=== PATIENT | male | born 1955 | race African-American/Black ===

== ENCOUNTER 2017-02-14 10:24 | Emergency (ER) | payer OTHER ==
[2017-02-14 10:38] VITALS: BMI 28.1
--- NOTE | 2017-02-14 10:41 | PDOC ---
History of Present Illness - General Chief Complaint: Blood Pressure Problem Stated Complaint: HIGH BLOOD PRESSURE Time Seen by Provider: 02/14/17 10:39 - History of Present Illness Initial Comments: 02/14/17 11:27 The pt is a 61 year old male with a PMH of TIA 2 weeks ago, CAD s/p stents, s/p left carotid artery stent, HTN who presented to ED today brought by EMS. Today he took Amlodipine but because he had dizziness and headache he checked his BP and it was elevated to around 190/100. He states that his headache resolved now. The pt is complaining of left arm weakness that is present since his stroke 2 weeks ago. His BP medications has been changed recently but he doesn't remember the names.He denies chest pain, SOB, palpitations. He denies dysuria, increased frequency. He denies fever, chills. PCP: Dr.Shivdasani Sierra Past History - Past Medical History Allergies/Adverse Reactions: Allergies Allergy/AdvReac Type Severity Reaction Status Date / Time JESSI Inhibitors Allergy Swelling Verified 02/14/17 10:34 Home Medications: Ambulatory Orders Amlodipine Besylate [Norvasc -] 10 mg PO DAILY 02/14/17 Aspirin [ASA -] 81 mg PO DAILY 02/14/17 Metformin HCl [Glucophage -] 850 mg PO DAILY 02/14/17 Metoprolol Succinate [Toprol Xl] 100 mg PO DAILY 02/14/17 Cardiac Disorders: Yes ([place]) Diabetes: Yes HTN: Yes - Surgical History Cardiac Surgery: Yes (carotid & cardiac stent) - Psycho/Social/Smoking Cessation Hx Anxiety: No Suicidal Ideation: No Smoking History: Never smoked Have you smoked in the past 12 months: No Information on smoking cessation initiated: No Hx Alcohol Use: No Drug/Substance Use Hx: No Substance Use Type: None Review of Systems - Review of Systems Able to Perform ROS?: Yes Comments:: 02/14/17 11:46 REVIEW OF SYSTEMS CONSTITUTIONAL: Absent: fever, chills, diaphoresis, generalized weakness HEENT: Absent: rhinorrhea, nasal congestion, throat pain, throat swelling, difficulty swallowing, CARDIOVASCULAR: Absent: chest pain, syncope, palpitations, irregular heart rate, lightheadedness , peripheral edema RESPIRATORY: Absent: cough, shortness of breath, dyspnea with exertion, orthopnea, wheezing, stridor, hemoptysis GASTROINTESTINAL: Absent: abdominal pain, abdominal distension, nausea, vomiting, diarrhea, constipation GENITOURINARY: Absent: dysuria, frequency, urgency, hesitancy, hematuria, flank pain, genital pain MUSCULOSKELETAL: Absent: myalgia, arthralgia, joint swelling, back pain, neck pain SKIN: Absent: rash, itching, pallor NEUROLOGIC: weakness in right upper extremity Absent: headache, focal weakness or paresthesias, unsteady gait, seizure, mental status changes PSYCHIATRIC: Absent: anxiety, depression, suicidal or homicidal ideation, hallucinations. Is the patient limited Belgian proficient: No *Physical Exam - Vital Signs Last Vital Signs Temp Pulse Resp BP Pulse Ox 98.3 F 122 H 20 194/96 99 02/14/17 10:35 02/14/17 10:35 02/14/17 10:35 02/14/17 10:35 02/14/17 10:35 - Physical Exam Comments: 02/14/17 11:47 GENERAL: The patient is awake, alert, and fully oriented, in no acute distress. HEAD: Normal with no signs of trauma. EYES: PERRL, extraocular movements intact, sclera anicteric, conjunctiva clear. No ptosis. ENT: Ears normal, nares patent, oropharynx clear without exudates, moist mucous membranes. NECK: Trachea midline, full range of motion, supple. LUNGS: Breath sounds equal, clear to auscultation bilaterally, no wheezes, no crackles, no accessory muscle use. HEART: Regular rate and rhythm, S1, S2 without murmur, rub or gallop. ABDOMEN: Soft, nontender, nondistended, normoactive bowel sounds, no guarding, no rebound, no hepatosplenomegaly, no masses. EXTREMITIES: 2+ pulses, warm, well-perfused, no edema. NEUROLOGICAL: Normal speech, no facial asymmetry, gait not observed. PSYCH: Normal mood, normal affect. SKIN: Warm, dry, normal turgor Heart Score/ECG Review - Electrocardiogram EKG: Normal - Age Age: 45-65 - Risk Factors Risk Factors Heart Score: Yes Hx Hypertension ED Treatment Course - LABORATORY CBC & Chemistry Diagram: 02/14/17 11:00 02/14/17 11:00 Medical Decision Making - Medical Decision Making 02/14/17 11:50 The pt is a asymptomatic 61 year old with elevated BP. We ordered CXR, head CT, CMP, CK index, troponin, CMP, INR/PT, awaiting results. 02/14/17 13:06 CT head shows changes that are consisted with previous changes on CT in [place] recently. We called his PCP and discussed. The BP improved without administering any medications in ED. systolic was 194, HR 124, now BP 149/86 and HR 94. He remains asymptomatic, denies headache, numbness, paresthesia, vision problems. His laboratory results are nl, CXR no acute pathology. We discussed the plan for discharge. The pt agreed to f/u with PCP and continue taking his home medications, monitor BP. *DC/Admit/Observation/Transfer Diagnosis at time of Disposition: Hypertension - Discharge Dispostion Disposition: HOME Condition at time of disposition: Good Admit: No - Referrals Referrals: Rigo Carroll [Primary Care Provider] - 3 days - Patient Instructions Printed Discharge Instructions: How to Monitor Your Blood Pressure at Home Additional Instructions: Please visit your PCP on Saturday. Take your medications everyday and monitor BP. If your symptoms worsen come back to ED as soon as possible.
[2017-02-14] MEDS ORDERED: SODIUM CHLORIDE 500 ML IV STA (10:54)
--- NOTE | 2017-02-14 11:13 | PDOC ---
Attending Attestation - Resident Resident Name: Nancy Bowers - ED Attending Attestation I have performed the following: I have examined & evaluated the patient, The case was reviewed & discussed with the resident, I agree w/resident's findings & plan - HPI HPI: 02/14/17 10:59 61y M hx of htn, DM, cad s/p stents, recent dx of TIA, presents with htn. The pt states he was recently in [facility] with dx of stroke, was dc about a week ago , but seems to have been having trouble managing his BP. Pt states that he had a mild headache yesterday, that improved after he took an amlodipine, then had a headache around 3am fani twas 7/10, but now is currently 0/10. There was no associated numbness/tingling/weakness, n/v, cp, sob, palpitations, vision changes, neck pain, back pain. pts BP was originally 192 sbp - repeta was 150s pt is noted to be tchycardic to 120s exam as documented by resident will ck labs will ck ct head will also reach out to his PMD 02/14/17 11:35 02/14/17 12:[address] Harris at [facility] The patient was admitted to [facility] for acute cva on 01/18, then had repeat imaging on 02/11 - 01/18 - admitted for AMS - MRI L frontal parietal acute infarct - 02/11 - CT head, no acute changes, comparable to findings from MRI the region of changes on our CT head is consistent with location of infarct from 1 month ago - pt currently asypmtmatic and vitals are normalized (bp 140/106), HR 86. Pts labs unremarkable. discussed with dr. Ham (PMD) - agrees that the CT likely reflects changes form prior stroke. As pt is asymtpmatic and BP is controlled can dc the pt to fu with PMD. pt agrees with the plan return precautions were discussed I discussed the physical exam findings, ancillary test results and final diagnoses with the patient. I answered all of the patient's questions. The patient was satisfied with the care received and felt comfortable with the discharge plan and treatment plan. The patient will call their primary care physician within 24 hours to arrange follow-up and will return to the Emergency Department with any new, persistent or worsening symptoms. - Physicial Exam PE: 02/15/17 08:26 see above - Medical Decision Making 02/15/17 08:26 see above
[2017-02-14 11:17] LABS: BASOPHIL 0.3 % (0-2.0); MEAN CELL VOLUME 78.7 fl (80-96); MEAN PLT VOLUME 8.5 fl (7.5-11.1); NEUTROPHILS 61.3 % (42.8-82.8); PLATELET COUNT 230 K/MM3 (134-434); RDW 14.4 % (11.9-15.9); WHITE BLOOD COUNT 6.7 K/mm3 (4.0-10.0)
[2017-02-14 11:28] LABS: ALBUMIN 4.4 g/dl (3.4-5.0); ALK PHOS 125 U/L (45-117); ANION GAP 9 (8-16); BILIRUBIN,TOTAL 0.5 mg/dL (0.2-1.0); CALCIUM 9.4 mg/dL (8.5-10.1); CO2 29 mmol/L (21-32); CREATININE 0.9 mg/dL (0.7-1.3); GLUCOSE,RANDOM 208 mg/dL (74-106); SGPT/ALT 29 U/L (12-78); TOT PROT 8.6 g/dl (6.4-8.2)
[2017-02-14 11:31] LABS: INR 1.01 (0.82-1.09); PROTHROMBIN TIME (PATIENT) 11.1 SEC (9.98-11.88)
--- NOTE | 2017-02-14 11:34 | EKG ---
Test Reason : Blood Pressure : / mmHG Vent. Rate : 114 BPM Atrial Rate : 114 BPM P-R Int : 148 ms QRS Dur : 084 ms QT Int : 324 ms P-R-T Axes : 037 010 -02 degrees QTc Int : 446 ms SINUS TACHYCARDIA POSSIBLE LEFT ATRIAL ENLARGEMENT LEFT VENTRICULAR HYPERTROPHY INFERIOR INFARCT , AGE UNDETERMINED ABNORMAL ECG NO PREVIOUS ECGS AVAILABLE Confirmed by YANG ABBOTT MD ([id number]) on 02/14/2017 11:34:32 AM Referred By: Confirmed By:YANG ABBOTT MD
[2017-02-14 11:36] LABS: THYROID STIMULATING HORMONE 2.54 uIU/ml (0.358-3.74); TROPONIN I < 0.02 ng/ml (0.00-0.05)
[2017-02-14 11:40] LABS: MAGNESIUM 2.1 mg/dL (1.8-2.4)
[2017-02-14 11:41] LABS: SGOT/AST 19 U/L (15-37)
[2017-02-14 13:33] VITALS: BP 149/86; PULSE 91; TEMP 98
== END 2017-02-14 14:25 | disposition home or self-care (01) ==
LOC: JER 10:24
PROC: 3E0337Z Introduction of Electrolytic and Water Balance Substance into Peripheral Vein, Percutaneous Approach (ICD-10-PCS; principal; 2017-02-14)
DX: I10 Essential (primary) hypertension (principal); I25.10 Atherosclerotic heart disease of native coronary artery without angina pectoris; Z95.5 Presence of coronary angioplasty implant and graft; I69.854 Hemiplegia and hemiparesis following other cerebrovascular disease affecting left non-dominant side; E11.9 Type 2 diabetes mellitus without complications; Z79.84 Long term (current) use of oral hypoglycemic drugs
CPT/HCPCS: 36415; 70450-TC; 71010-TC; 80053; 82550; 82553; 83735; 84443; 84484; 85025; 85610; 86850; 86900; 86901; 93005; 93010; 99283-25

== ENCOUNTER 2017-02-16 08:28 | Emergency (ER) | payer OTHER ==
[2017-02-16 08:40] VITALS: TEMP 98.5; BMI 27.3
[2017-02-16] MEDS ORDERED: METOPROLOL SUCCINATE 100 MG TAB.SR.24H (FP) PO ONE (08:50)
[2017-02-16] MEDS ORDERED: METOPROLOL SUCCINATE 50 MG TAB.SR.24H (FP) ONE (09:00)
--- NOTE | 2017-02-16 09:02 | PDOC ---
History of Present Illness - General Chief Complaint: CVA/TIA Stated Complaint: HEAD PAIN Time Seen by Provider: 02/16/17 08:49 History Source: Patient Exam Limitations: No Limitations - History of Present Illness Initial Comments: CHIEF COMPLAINT: 61 y/o afebrile male with PMH HTN, DM, CAD s/p stents (on Effient blood thinner), recent dx of TIA, recent dx of carotid artery stenosis c /o HTN at home and left facial throbbing. HISTORY OF PRESENT ILLNESS: The patient states he woke up around 6am and noticed he had a throbbing pain in the left side of his face. He states he took his amlodipine at 6:30am, which is when he normally takes it. He states the throbbing has subsided. He denies f/c, changes in vision/hearing, n/v/d, facial drooping, slurred speech, Cp, SOB, abd pain, palpitations, fall, LOC. He normally takes his metoprolol around 9:30am and hasn't taken it yet. He states he only has slight residual numbness in his right hand from his TIA a few weeks ago. Vital signs on arrival are notable for pulse of 102 and BP of 183/86. REVIEW OF SYSTEMS: GENERAL/CONSTITUTIONAL: No fever/chills. No weakness. No weight change. HEAD, EYES, EARS, NOSE AND THROAT: No change in vision. No ear pain or discharge. No sore throat. Left sided facial throbbing (resolved) CARDIOVASCULAR: No chest pain or shortness of breath. RESPIRATORY: No cough, wheezing, or hemoptysis. GASTROINTESTINAL: No abd pain, nausea, vomiting, diarrhea. GENITOURINARY: No dysuria, frequency, or change in urination. MUSCULOSKELETAL: No joint or muscle swelling or pain. No neck or back pain. SKIN: No rash or easy bruising. NEUROLOGIC: +headache (resolved) No vertigo, loss of consciousness, or loss of sensation. PHYSICAL EXAM: GENERAL: The patient is awake, alert, and fully oriented, in no acute distress. He is well appearing and speaks in full, clear sentences. HEAD: Normal with no signs of trauma. ENT: Pupils equal, round and reactive to light, extraocular movements intact, sclera anicteric, conjunctiva clear. Neck supple. LUNGS: Clear to auscultation bilaterally. Normal excursion. No respiratory distress or use of accessory muscles. CV: RRR, S1/S2, no MRG. Cap refill < 2 sec. ABDOMEN: Soft, non-distended, non-tender even to deep palpation, no hepatomegaly or splenomegaly, no masses. EXTREMITIES: Normal range of motion, no edema. NEUROLOGICAL: Normal speech. Gait not assessed in the ER. CN II-XII grossly intact. No facial drooping. No slurred speech. Motor and sensory equal and intact in b/l UEs and LEs. PSYCH: Normal mood, normal affect. SKIN: Warm, dry, normal turgor, no rashes or lesions noted. NIH Stroke Scale - Last Known Well Date/Time & Onset Date Last Known Well: 02/16/17 Time Last Known Well: 06:30 - Initial Evaluation Level of consciousness: Alert Ask patient the month and their age: Answers both correctly Ask patient to open & close eyes; make fist and let go: Obeys both correctly Best gaze (horizontal eye movement): Normal Visual field testing: No visual field loss Facial paresis (Show teeth/raise eyebrows/close eyes tight): Normal symmetrical movement Motor Function: Left Arm: Normal Motor Function: Right Arm: Normal (extends arm 90 (or 45) degrees for 10 seconds without drift Motor Function: Left Leg: Normal (extends leg 30 degrees for 5 seconds without drift) Motor Function: Right Leg: Normal (extends leg 30 degrees for 5 seconds without drift) Limb Ataxia: No ataxia Sensory(Use pinprick test arms,legs,trunk,face/side to side): Normal Best language (Describe picture, name items, read sentences): No Aphasia Dysarthria (read several words): Normal articulation Extinction and Inattention: No abnormality - Total Score NIH Stroke Scale Score: 0 Past History - Past Medical History Allergies/Adverse Reactions: Allergies Allergy/AdvReac Type Severity Reaction Status Date / Time JESSI Inhibitors Allergy Swelling Verified 02/16/17 08:40 Home Medications: Ambulatory Orders Amlodipine Besylate [Norvasc -] 10 mg PO DAILY 02/14/17 Aspirin [ASA -] 81 mg PO DAILY 02/14/17 Metformin HCl [Glucophage -] 850 mg PO DAILY 02/14/17 Metoprolol Succinate [Toprol Xl] 100 mg PO DAILY 02/14/17 Exenatide Microspheres [Bydureon] 0 mg SQ Q7D 02/16/17 Irbesartan/Hydrochlorothiazide [Irbesartan-Hctz 300-12.5 mg Tb] 1 each PO DAILY 02/16/17 Omeprazole Magnesium [Prilosec] 10 mg PO DAILY 02/16/17 Prasugrel HCl [Effient] 10 mg PO DAILY 02/16/17 Cardiac Disorders: Yes ([place]) CVA: Yes Diabetes: Yes HTN: Yes - Surgical History Cardiac Surgery: Yes (carotid & cardiac stent) - Psycho/Social/Smoking Cessation Hx Anxiety: No Suicidal Ideation: No Smoking History: Never smoked Have you smoked in the past 12 months: No Information on smoking cessation initiated: No Hx Alcohol Use: No Drug/Substance Use Hx: No Substance Use Type: None *Physical Exam - Vital Signs Last Vital Signs Temp Pulse Resp BP Pulse Ox 98.5 F 102 H 18 183/86 97 02/16/17 08:38 02/16/17 08:38 02/16/17 08:38 02/16/17 08:38 02/16/17 08:38 Heart Score/ECG Review - ECG Intrepretation Comment:: Twelve-lead EKG was performed and reviewed by Dr. Mora. There is normal sinus rhythm with a normal rate. The axis is normal. The intervals are normal. Inferior infarct, age undetermined Impression: Abnormal twelve-lead EKG ED Treatment Course - LABORATORY CBC & Chemistry Diagram: 02/16/17 08:58 02/16/17 08:58 Medical Decision Making - Medical Decision Making A/P: 61 y/o male s/p recent diagnosis of TIA c/o left sided facial throbbing, headache and high BP at home this morning. The patient states his facial throbbing and headache have resolved. Plan is as follows: 1. Labs 2. EKG 3. Head CT 4. PO metoprolol The patient was admitted to [facility] for acute CVA on 01/18. 01/18 - MRI showed L frontal parietal acute infarct The patient had repeat imaging on 02/11 with no acute changes. The patient had repeat imaging on 02/14 here with no acute changes. PMD is DR. Ham Head CT IMPRESSION: No significant change since 02/14/17. Labs unremarkable. The patient states he does not feel comfortable going home given his medical problems and continued symptoms. Spoke with the patient's PCP, Dr. Ham and he does agree there is no reason for admission, as the patient's blood pressure is now normal. The licensed clinical social worker is now speaking with the patient. Leann spoke with the patient and his and provided some reassurance. He has follow up appointments this week with Cardiology and Neurology. I instructed him to continue taking his medications as prescribed, call his PCP anytime he is concerned and return to the ER with any worsening or concerning symptoms. The patient verbalizes understanding of all instructions, has no further questions and is awaiting discharge. *DC/Admit/Observation/Transfer Diagnosis at time of Disposition: Hypertension Qualifiers: Hypertension type: unspecified secondary hypertension Qualified Code(s): I15.9 - Secondary hypertension, unspecified; I15 - Secondary hypertension - Discharge Dispostion Disposition: HOME Condition at time of disposition: Improved - Patient Instructions Printed Discharge Instructions: DI for High Blood Pressure Additional Instructions: Discharge Instructions: -Please keep your upcoming Neurology and Cardiology appointments as scheduled -Take your medications as prescribed -Call your PCP anytime you have a question or concern -Return to the ER with any worsening or concerning symptoms
[2017-02-16 09:26] LABS: BASOPHIL 0.1 % (0-2.0); EOSINOPHIL 0.5 % (0-4.5); MCHC 33.3 g/dl (32.0-35.9); MEAN CELL VOLUME 78.3 fl (80-96); MEAN PLT VOLUME 8.1 fl (7.5-11.1); NEUTROPHILS 75.9 % (42.8-82.8); PLATELET COUNT 215 K/MM3 (134-434); RDW 14.6 % (11.9-15.9); WHITE BLOOD COUNT 8.4 K/mm3 (4.0-10.0)
[2017-02-16 09:51] LABS: ALBUMIN 4.1 g/dl (3.4-5.0); ANION GAP 8 (8-16); CALCIUM 9.4 mg/dL (8.5-10.1); CO2 29 mmol/L (21-32); GLUCOSE,RANDOM 164 mg/dL (74-106); SGOT/AST 9 U/L (15-37); SGPT/ALT 24 U/L (12-78)
[2017-02-16 09:54] LABS: ALK PHOS 116 U/L (45-117); BILIRUBIN,TOTAL 0.7 mg/dL (0.2-1.0); TOT PROT 7.9 g/dl (6.4-8.2); TROPONIN I < 0.02 ng/ml (0.00-0.05)
[2017-02-16 11:16] VITALS: BP 143/76; PULSE 80
--- NOTE | 2017-02-17 11:28 | EKG ---
Test Reason : Blood Pressure : / mmHG Vent. Rate : 097 BPM Atrial Rate : 097 BPM P-R Int : 162 ms QRS Dur : 088 ms QT Int : 346 ms P-R-T Axes : 054 012 019 degrees QTc Int : 439 ms NORMAL SINUS RHYTHM POSSIBLE LEFT ATRIAL ENLARGEMENT INFERIOR INFARCT (CITED ON OR BEFORE 14-FEB-2017) ABNORMAL ECG WHEN COMPARED WITH ECG OF 14-FEB-2017 10:36, NO SIGNIFICANT CHANGE WAS FOUND Confirmed by DAVID HERNANDES MD ([id number]) on 02/17/2017 11:28:38 AM Referred By: Confirmed By:DAVID HERNANDES MD
== END 2017-02-16 12:05 | disposition home or self-care (01) ==
LOC: JER 08:28
DX: I10 Essential (primary) hypertension (principal); I25.2 Old myocardial infarction; E11.9 Type 2 diabetes mellitus without complications; Z79.84 Long term (current) use of oral hypoglycemic drugs; Z86.73 Personal history of transient ischemic attack (TIA), and cerebral infarction without residual deficits; Z79.01 Long term (current) use of anticoagulants
CPT/HCPCS: 36415; 70450-TC; 80053; 82550; 82553; 84484; 85025; 93005; 93010; 99283-25

== ENCOUNTER 2017-02-24 10:08 | Emergency (ER) | payer OTHER ==
[2017-02-24 10:20] VITALS: BMI 29.7
[2017-02-24] MEDS ORDERED: SODIUM CHLORIDE 1,000 ML IV STA (10:23)
--- NOTE | 2017-02-24 10:25 | PDOC ---
History of Present Illness - General Chief Complaint: Blood Sugar Problem Stated Complaint: BLOOD SUGAR PROBLEM Time Seen by Provider: 02/24/17 10:22 Past History - Past Medical History Allergies/Adverse Reactions: Allergies Allergy/AdvReac Type Severity Reaction Status Date / Time JESSI Inhibitors Allergy Swelling Verified 02/24/17 10:19 Home Medications: Ambulatory Orders Amlodipine Besylate [Norvasc -] 10 mg PO DAILY 02/14/17 Aspirin [ASA -] 81 mg PO DAILY 02/14/17 Metformin HCl [Glucophage -] 850 mg PO DAILY 02/14/17 Metoprolol Succinate [Toprol Xl] 100 mg PO DAILY 02/14/17 Exenatide Microspheres [Bydureon] 0 mg SQ Q7D 02/16/17 Irbesartan/Hydrochlorothiazide [Irbesartan-Hctz 300-12.5 mg Tb] 1 each PO DAILY 02/16/17 Omeprazole Magnesium [Prilosec] 10 mg PO DAILY 02/16/17 Prasugrel HCl [Effient] 10 mg PO DAILY 02/16/17 Rosuvastatin [Crestor -] 0 mg PO DAILY 02/24/17 Cardiac Disorders: Yes ([place]) CVA: Yes Diabetes: Yes HTN: Yes - Surgical History Cardiac Surgery: Yes (carotid & cardiac stent) - Psycho/Social/Smoking Cessation Hx Anxiety: No Suicidal Ideation: No Smoking History: Never smoked Have you smoked in the past 12 months: No Information on smoking cessation initiated: No Hx Alcohol Use: No Drug/Substance Use Hx: No Substance Use Type: None *Physical Exam - Vital Signs Last Vital Signs Temp Pulse Resp BP Pulse Ox 98 F 103 H 18 184/91 99 02/24/17 10:18 02/24/17 10:18 02/24/17 10:18 02/24/17 10:18 02/24/17 10:18 *DC/Admit/Observation/Transfer - Attestations Physician Attestion: 02/24/17 10:25 I, Dr. Boaz Stacy, attest that this document has been prepared under my direction and personally reviewed by me in its entirety. I further attest, that it accurately reflects all work, treatment, procedures and medical decision -making performed by me.
--- NOTE | 2017-02-24 10:39 | PDOC ---
History of Present Illness - General Chief Complaint: Blood Sugar Problem Stated Complaint: BLOOD SUGAR PROBLEM Time Seen by Provider: 02/24/17 10:22 History Source: Patient - History of Present Illness Timing/Duration: other (this am) Associated Symptoms: denies: fever/chills, nausea/vomiting Past History - Past Medical History Allergies/Adverse Reactions: Allergies Allergy/AdvReac Type Severity Reaction Status Date / Time JESSI Inhibitors Allergy Swelling Verified 02/24/17 10:19 Home Medications: Ambulatory Orders Amlodipine Besylate [Norvasc -] 10 mg PO DAILY 02/14/17 Aspirin [ASA -] 81 mg PO DAILY 02/14/17 Metformin HCl [Glucophage -] 850 mg PO DAILY 02/14/17 Metoprolol Succinate [Toprol Xl] 100 mg PO DAILY 02/14/17 Exenatide Microspheres [Bydureon] 0 mg SQ Q7D 02/16/17 Irbesartan/Hydrochlorothiazide [Irbesartan-Hctz 300-12.5 mg Tb] 1 each PO DAILY 02/16/17 Omeprazole Magnesium [Prilosec] 10 mg PO DAILY 02/16/17 Prasugrel HCl [Effient] 10 mg PO DAILY 02/16/17 Rosuvastatin [Crestor -] 0 mg PO DAILY 02/24/17 Cardiac Disorders: Yes ([place]) CVA: Yes Diabetes: Yes HTN: Yes - Surgical History Cardiac Surgery: Yes (carotid & cardiac stent) - Psycho/Social/Smoking Cessation Hx Anxiety: No Suicidal Ideation: No Smoking History: Never smoked Have you smoked in the past 12 months: No Information on smoking cessation initiated: No Hx Alcohol Use: No Drug/Substance Use Hx: No Substance Use Type: None Review of Systems - Review of Systems Constitutional: No: Chills, Fever HEENTM: No: Blurred Vision, Difficulty Swallowing Respiratory: No: Shortness of Breath Cardiac (ROS): No: Chest Pain ABD/GI: No: Nausea, Vomiting Neurological: No: Headache, Dizziness *Physical Exam - Vital Signs Last Vital Signs Temp Pulse Resp BP Pulse Ox 98 F 103 H 18 184/91 99 02/24/17 10:18 02/24/17 10:18 02/24/17 10:18 02/24/17 10:18 02/24/17 10:18 - Physical Exam General Appearance: Yes: Appropriately Dressed. No: Apparent Distress HEENT: positive: Normal Voice Neck: positive: Supple Respiratory/Chest: negative: Respiratory Distress Cardiovascular: positive: Regular Rate, S1, S2 Gastrointestinal/Abdominal: positive: Soft. negative: Tender Extremity: positive: Normal Inspection Integumentary: positive: Dry, Warm Neurologic: positive: Fully Oriented, Alert, Normal Mood/Affect ED Treatment Course - LABORATORY CBC & Chemistry Diagram: 02/24/17 10:40 02/24/17 10:40 - RADIOLOGY Radiology Studies Ordered: Category Date Time Status CHEST PA & LAT [RAD] Stat Radiology 02/24/17 10:23 Ordered Medical Decision Making - Medical Decision Making 02/24/17 10:36 61 yo M, HTN, NIDDM, on weekly bydureon injections, CAD w/ 1 stent, TIA, s/p carotid endarderectomy, BIB EMS for hyperglycemia and elevated BP. Patient states he was in his usual state of health when he went to bed last night but woke up this a.m. "not feeling like myself" but denies any headache, dizziness , visual changes, focal weakness, chest pain, shortness of breath, abdominal pain, change in bowel movements, dysuria, nausea, vomiting, fever or chills. States he checked his sugar and it was over 300, usually in the 180s as per patient. Blood pressure also elevated en route. As per EMS. Patient reports that he is compliant with his medications. See exam Hyperglycemia FS 311 in ED -IVF -basic labs -reassess Hypertension Was 189/77 initially, improved to 148/77 without intervention Took am meds per pt Appears anxious in ED, takes xanax at needed at home -xanax -labs -reassess 02/24/17 12:19 Patient reports feeling better with fluids. Final fingerstick 329. Patient discharged in stable condition to return for worsening of symptoms. Otherwise, follow-up with his PMD *DC/Admit/Observation/Transfer Diagnosis at time of Disposition: Hyperglycemia Hypertension Qualifiers: Hypertension type: other secondary hypertension Qualified Code(s): I15.8 - Other secondary hypertension - Discharge Dispostion Condition at time of disposition: Improved - Patient Instructions Printed Discharge Instructions: DI for Hyperglycemia -- Adult Additional Instructions: Continue to take your medications as directed and follow up with your PMD. Return for worsening of symptoms
[2017-02-24 10:50] LABS: BASOPHIL 0.3 % (0-2.0); EOSINOPHIL 0.6 % (0-4.5); MCH 26.2 pg (25.7-33.7); MCHC 33.7 g/dl (32.0-35.9); MEAN PLT VOLUME 8.5 fl (7.5-11.1); NEUTROPHILS 58.2 % (42.8-82.8); PLATELET COUNT 187 K/MM3 (134-434); RDW 14.6 % (11.9-15.9); WHITE BLOOD COUNT 5.4 K/mm3 (4.0-10.0)
[2017-02-24] MEDS ORDERED: ALPRAZolam 0.25 MG TABLET PO ONE (10:56)
[2017-02-24] MEDS ORDERED: ALPRAZolam 0.25 MG TABLET ONE (10:58)
[2017-02-24 11:15] LABS: ALK PHOS 107 U/L (45-117); ANION GAP 8 (8-16); BILIRUBIN,TOTAL 0.5 mg/dL (0.2-1.0); CALCIUM 9.3 mg/dL (8.5-10.1); CO2 33 mmol/L (21-32); CREATININE 0.9 mg/dL (0.7-1.3); GLUCOSE,RANDOM 238 mg/dL (74-106); SGOT/AST 12 U/L (15-37); SGPT/ALT 23 U/L (12-78); TOT PROT 7.6 g/dl (6.4-8.2)
[2017-02-24 11:16] LABS: URINE APPEARANCE CLEAR; URINE BILIRUBIN NEGATIVE (NEGATIVE); URINE BLOOD NEGATIVE (NEGATIVE); URINE COLOR STRAW; URINE GLUCOSE (UA) 3+ (NEGATIVE); URINE KETONE NEGATIVE (NEGATIVE); URINE LEUK ESTERASE NEGATIVE (NEGATIVE); URINE NITRITE NEGATIVE (NEGATIVE); URINE PROTEIN NEGATIVE (NEGATIVE); URINE UROBILINOGEN NEGATIVE E.U./dl (0.2-1.0)
[2017-02-24 11:17] LABS: TROPONIN I < 0.02 ng/ml (0.00-0.05)
[2017-02-24 12:16] VITALS: BP 134/64; PULSE 81; TEMP 97.9
--- NOTE | 2017-02-24 22:27 | EKG ---
Test Reason : Blood Pressure : / mmHG Vent. Rate : 089 BPM Atrial Rate : 089 BPM P-R Int : 158 ms QRS Dur : 084 ms QT Int : 346 ms P-R-T Axes : 047 027 013 degrees QTc Int : 420 ms NORMAL SINUS RHYTHM INFERIOR INFARCT (CITED ON OR BEFORE 14-FEB-2017) ABNORMAL ECG WHEN COMPARED WITH ECG OF 16-FEB-2017 09:09, NO SIGNIFICANT CHANGE WAS FOUND Confirmed by TY VILLA MD ([id number]) on 02/24/2017 10:27:43 PM Referred By: Confirmed By:TY VILLA MD
== END 2017-02-24 12:32 | disposition home or self-care (01) ==
LOC: JER 10:08
PROC: 3E0337Z Introduction of Electrolytic and Water Balance Substance into Peripheral Vein, Percutaneous Approach (ICD-10-PCS; principal; 2017-02-24)
DX: E11.65 Type 2 diabetes mellitus with hyperglycemia (principal); Z79.899 Other long term (current) drug therapy; I25.10 Atherosclerotic heart disease of native coronary artery without angina pectoris; I10 Essential (primary) hypertension; Z95.5 Presence of coronary angioplasty implant and graft; Z86.73 Personal history of transient ischemic attack (TIA), and cerebral infarction without residual deficits
CPT/HCPCS: 36415; 71010-TC; 80053; 81003; 82550; 82553; 84484; 85025; 93005; 93010; 96360; 99283-25

== ENCOUNTER 2017-03-24 00:56 | Emergency (ER) | payer OTHER ==
[2017-03-24 01:21] VITALS: BP 168/79; PULSE 96; BMI 26.6
--- NOTE | 2017-03-24 01:31 | PDOC ---
History of Present Illness - General History Source: Patient, Old Records Exam Limitations: No Limitations - History of Present Illness Initial Comments: 03/24/17 04:34 The patient is a 61 year old male with a significant past medical history of hypertension, diabetes, CAD s/p stents, CVA, recent carotid surgery 03/22 presenting to the Emergency Department with difficulty swallowing. The patient reports that he had surgery on his left carotid on Saturday, and now is having difficulty swallowing his medication. He admits that he is unsure of the exactly surgery performed, but he had his surgery done at [facility] with Dr. Miller. The patient admit that he is able to swallow water, but that he is unable to swallow his medication. He is scheduled to follow up with his doctor in one week. He admits to having a similar surgery on his right carotid years ago. The patient denies nausea, vomiting, and diarrhea. Patient denies difficult eating or swallowing water. Patient denies fever, chills, and cough. Patient denies headache, dizziness, and vision changes. PCP: Dr. 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 Surgical Hx: right carotid surgery years ago <Donna Walker - Last Filed: 03/24/17 04:34> <Corrine Jaffe - Last Filed: 03/25/17 01:36> - General Chief Complaint: Dysphagia Stated Complaint: DIFFICULT TO SWALLOW Time Seen by Provider: 03/24/17 01:30 Past History <Donna Walker - Last Filed: 03/24/17 04:34> - Past Medical History Cardiac Disorders: Yes ([place]) CVA: Yes Diabetes: Yes HTN: Yes - Surgical History Cardiac Surgery: Yes (carotid & cardiac stent) - Psycho/Social/Smoking Cessation Hx Anxiety: No Suicidal Ideation: No Smoking History: Never smoked Have you smoked in the past 12 months: No Information on smoking cessation initiated: No Hx Alcohol Use: No Drug/Substance Use Hx: No Substance Use Type: None <Corrine Jaffe - Last Filed: 03/25/17 01:36> - Past Medical History Allergies/Adverse Reactions: Allergies Allergy/AdvReac Type Severity Reaction Status Date / Time JESSI Inhibitors Allergy Swelling Verified 03/24/17 01:16 Home Medications: Ambulatory Orders Amlodipine Besylate [Norvasc -] 10 mg PO DAILY 02/14/17 Aspirin [ASA -] 81 mg PO DAILY 02/14/17 Metformin HCl [Glucophage -] 850 mg PO DAILY 02/14/17 Metoprolol Succinate [Toprol Xl] 100 mg PO DAILY 02/14/17 Exenatide Microspheres [Bydureon] 0 mg SQ Q7D 02/16/17 Irbesartan/Hydrochlorothiazide [Irbesartan-Hctz 300-12.5 mg Tb] 1 each PO DAILY 02/16/17 Omeprazole Magnesium [Prilosec] 10 mg PO DAILY 02/16/17 Prasugrel HCl [Effient] 10 mg PO DAILY 02/16/17 Rosuvastatin [Crestor -] 0 mg PO DAILY 02/24/17 Review of Systems - Review of Systems Able to Perform ROS?: Yes Comments:: 03/24/17 04:34 GENERAL/CONSTITUTIONAL: No fever or chills. No weakness. HEAD, EYES, EARS, NOSE AND THROAT: + difficulty swallowing. No change in vision. No ear pain or discharge. CARDIOVASCULAR: No chest pain or shortness of breath. RESPIRATORY: No cough, wheezing, or hemoptysis. GASTROINTESTINAL: No nausea, vomiting, diarrhea or constipation. GENITOURINARY: No dysuria, frequency, or change in urination. MUSCULOSKELETAL: No joint or muscle swelling or pain. No neck or back pain. SKIN: No rash NEUROLOGIC: No headache, vertigo, loss of consciousness, or change in strength/ sensation. ENDOCRINE: No increased thirst. No abnormal weight change. HEMATOLOGIC/LYMPHATIC: No anemia, easy bleeding, or history of blood clots. ALLERGIC/IMMUNOLOGIC: No hives or skin allergy. <Donna Walker - Last Filed: 03/24/17 04:34> *Physical Exam - Vital Signs Last Vital Signs Temp Pulse Resp BP Pulse Ox 100.1 F H 96 H 20 168/79 96 03/24/17 03:53 03/24/17 01:18 03/24/17 01:18 03/24/17 01:18 03/24/17 01:18 - Physical Exam Comments: 03/24/17 04:35 GENERAL: Warm to touch. Awake, alert, and fully oriented, in no acute distress HEAD: No signs of trauma EYES: PERRLA, EOMI, sclera anicteric, conjunctiva clear ENT: No erythema to throat. Auricles normal inspection, hearing grossly normal, nares patent, oropharynx clear without exudates. Moist mucosa NECK: Did not open dressing over left neck. No erythema surrounding dressing, no warmth. Swollen submental nodes. Normal ROM, supple, no JVD, no masses LUNGS: Breath sounds equal, clear to auscultation bilaterally. No wheezes, and no crackles HEART: Regular rate and rhythm, normal S1 and S2, no murmurs, rubs or gallops ABDOMEN: Soft, nontender, normoactive bowel sounds. No guarding, no rebound. No masses EXTREMITIES: Normal range of motion, no edema. No clubbing or cyanosis. No cords, erythema, or tenderness NEUROLOGICAL: Tongue deviated to left. Alert, awake, appropriate. Cranial nerves 2-12 grossly intact. No motor deficits to the upper extremities and lower extremities. Normal speech. SKIN: Warm, Dry, normal turgor, no rashes or lesions noted. <Donna Walker - Last Filed: 03/24/17 04:34> - Vital Signs Last Vital Signs Temp Pulse Resp BP Pulse Ox 98.7 F 96 H 20 168/79 96 03/24/17 01:18 03/24/17 01:18 03/24/17 01:18 03/24/17 01:18 03/24/17 01:18 <Corrine Jaffe - Last Filed: 03/25/17 01:36> ED Treatment Course - LABORATORY CBC & Chemistry Diagram: 03/24/17 01:46 03/24/17 01:46 - ADDITIONAL ORDERS Additional order review: Laboratory Results 03/24/17 01:46 Sodium 139 Potassium 3.7 Chloride 100 Carbon Dioxide 28 Anion Gap 11 BUN 15 D Creatinine 0.8 Creat Clearance w eGFR > 60 Random Glucose 167 H D Calcium 8.9 Total Bilirubin 0.7 D AST 11 L ALT 19 Alkaline Phosphatase 101 Total Protein 7.0 Albumin 3.8 03/24/17 01:46 RBC 5.02 MCV 78.2 L MCHC 33.6 RDW 14.0 MPV 8.4 Neutrophils % 78.7 D Lymphocytes % 13.4 D Monocytes % 7.3 Eosinophils % 0.1 D Basophils % 0.5 <Donna Walker - Last Filed: 03/24/17 04:34> - LABORATORY CBC & Chemistry Diagram: 03/24/17 01:46 04/23/17 01:46 <Corrine Jaffe - Last Filed: 03/25/17 01:36> Medical Decision Making - Medical Decision Making 03/24/17 04:08 Dr. Cat was called at his office at 3:50. Dr. Cat returned the call and spoke to Dr. Jaffe about the patient's care. Dr. Miller, the patient's surgeon, was called at his office at 4:05, and spoke to Dr. Jaffe about the patient's recent surgery. <Donna Walker - Last Filed: 03/24/17 04:34> - Medical Decision Making 03/24/17 03:51 Patient Name: Braden Palma This is a preliminary report by imaging special education professor Exam: CT angiogram of the head and neck Images: [id number] Clinical indication: One day status post carotid stent. Recent procedure at [facility]. Patient unable to provide an accurate history. Findings: A stent is present in the common carotid and proximal internal carotid on the right and is patent. The left common carotid, internal carotid and proximal external carotid is mildly atherosclerotic but otherwise unremarkable. Surgical clips are seen in the carotid space. The vertebral arteries have a normal appearance and appear symmetric bilaterally. The visualized anterior and posterior intracerebral circulation is unremarkable. Postsurgical changes are noted in the supraclavicular soft tissues on the left including subcutaneous emphysema with stranding and infiltration. The submandibular gland on the left is edematous and hyperemic with prominent ducts. Stranding and infiltration is noted in the surrounding fat. There is thickening of the overlying platysma muscle. A filling defect is seen in the facial vein posterior the submandibular gland ( image [id number]) consistent with thrombus. Mild edema is noted slight mass effect on the oropharynx which is displaced to the right. Limited evaluation of the orbits and globes unremarkable. The paranasal sinuses middle ear cavities and mastoids are unremarkable. No adenopathy or collection is seen in the soft tissues and neck. Impression: Patent stent in the common and proximal internal carotid on the right. Postsurgical changes in the left neck. 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 Additional clinical information with regards to the recent surgery may be helpful for further evaluation. THIS DOCUMENT HAS BEEN ELECTRONICALLY SIGNED Pt is 100.1F afebrile. He is not tachycardic. 03/24/17 04:16 Pt was operated on by Dr. Tinsley; doctor tells me that he had a carotid endaterectomy. He says that the glossopharyngeal nerve may be causing pain to the back of his throat; pt was complaining of the same pain in [facility], but he is able to eat food and drink water, but he is unable to swallow pills. Pt ay be anxious. Here, rapid strep is positive. We will treat for strep throat with IM bicillin. Pt has deviation of the tongue to the left side, which surgeon tells me that is expected, as his hypoglossal nerve had been stretched during the procedure, and tells me that should resolve slowly. He also tells me that the ETT that was in place throughout the surgery could be causing the pain. <Corrine Jaffe - Last Filed: 03/25/17 01:36> *DC/Admit/Observation/Transfer - Attestations Scribe Attestion: 03/24/17 04:40 Documentation prepared by Donna Walker, acting as bio medical technician for Corrine Jaffe MD. <Donna Walker - Last Filed: 03/24/17 04:34> - Discharge Dispostion Admit: No <Corrine Jaffe - Last Filed: 03/25/17 01:36> Diagnosis at time of Disposition: Strep throat, Dysphagia - Discharge Dispostion Disposition: HOME Condition at time of disposition: Stable - Referrals Referrals: Rigo Carroll [Primary Care Provider] - - Patient Instructions Printed Discharge Instructions: DI for Strep Throat, DI for Oropharyngeal Dysphagia
[2017-03-24 01:59] LABS: BASOPHIL 0.5 % (0-2.0); EOSINOPHIL 0.1 % (0-4.5); MCH 26.3 pg (25.7-33.7); MCHC 33.6 g/dl (32.0-35.9); MEAN CELL VOLUME 78.2 fl (80-96); MEAN PLT VOLUME 8.4 fl (7.5-11.1); NEUTROPHILS 78.7 % (42.8-82.8); PLATELET COUNT 182 K/MM3 (134-434); WHITE BLOOD COUNT 10.6 K/mm3 (4.0-10.0)
[2017-03-24 02:22] LABS: ALBUMIN 3.8 g/dl (3.4-5.0); ALK PHOS 101 U/L (45-117); ANION GAP 11 (8-16); BILIRUBIN,TOTAL 0.7 mg/dL (0.2-1.0); CALCIUM 8.9 mg/dL (8.5-10.1); CO2 28 mmol/L (21-32); COCKROFT - GAULT 114.81; CREATININE 0.8 mg/dL (0.7-1.3); GLUCOSE,RANDOM 167 mg/dL (74-106); SGOT/AST 11 U/L (15-37); SGPT/ALT 19 U/L (12-78)
[2017-03-24 03:53] VITALS: TEMP 100.1
[2017-03-24] MEDS ORDERED: PENICILLIN G BENZATHINE 1,200,000 UNIT/2 ML PFS IM ONE (04:12)
[2017-03-24] MEDS ORDERED: PENICILLIN G BENZATHINE 2,400,000 UNIT/4 ML PFS ONE (04:27)
--- NOTE | 2017-03-25 11:10 | EKG ---
Test Reason : Blood Pressure : / mmHG Vent. Rate : 088 BPM Atrial Rate : 088 BPM P-R Int : 158 ms QRS Dur : 086 ms QT Int : 358 ms P-R-T Axes : 046 010 026 degrees QTc Int : 433 ms NORMAL SINUS RHYTHM POSSIBLE LEFT ATRIAL ENLARGEMENT LEFT VENTRICULAR HYPERTROPHY INFERIOR INFARCT (CITED ON OR BEFORE 14-FEB-2017) ABNORMAL ECG WHEN COMPARED WITH ECG OF 24-FEB-2017 10:30, NO SIGNIFICANT CHANGE WAS FOUND Confirmed by DAVID HERNANDES MD ([id number]) on 03/25/2017 11:10:23 AM Referred By: Confirmed By:DAVID HERNANDES MD
== END 2017-03-24 05:08 | disposition home or self-care (01) ==
LOC: JER 00:56
DX: J02.0 Streptococcal pharyngitis (principal); B95.0 Streptococcus, group A, as the cause of diseases classified elsewhere; I25.10 Atherosclerotic heart disease of native coronary artery without angina pectoris; I10 Essential (primary) hypertension; Z95.5 Presence of coronary angioplasty implant and graft; E11.9 Type 2 diabetes mellitus without complications; Z79.84 Long term (current) use of oral hypoglycemic drugs; Z86.73 Personal history of transient ischemic attack (TIA), and cerebral infarction without residual deficits; Z98.890 Other specified postprocedural states
CPT/HCPCS: 36415; 70498-TC; 80053; 85025; 87070; 87430; 93005; 93010; 96372; 99283-25

== ENCOUNTER 2017-03-25 01:07 | Emergency (ER) | payer OTHER ==
[2017-03-25 01:19] VITALS: BP 186/88; PULSE 96; BMI 26.6
[2017-03-25] MEDS ORDERED: METOPROLOL TARTRATE 50 MG TABLET (FP) PO ONE (01:33)
[2017-03-25] MEDS ORDERED: amLODIPine BESYLATE 10 MG TABLET (FP) PO ONE (01:33)
[2017-03-25] MEDS ORDERED: amLODIPine BESYLATE 5 MG TABLET (FP) ONE (02:12)
[2017-03-25] MEDS ORDERED: METOPROLOL TARTRATE 50 MG TABLET (FP) ONE (02:12)
[2017-03-25] MEDS ORDERED: POLYETHYLENE GLYCOL 3350 119 GM BTL PO ONE (02:19)
[2017-03-25] MEDS ORDERED: LACTULOSE 20 GM/30 ML UDC (FOR ORAL USE ONLY) PO ONE (02:19)
[2017-03-25] MEDS ORDERED: LACTULOSE 20 GM/30 ML UDC (FOR ORAL USE ONLY) ONE (02:39)
--- NOTE | 2017-03-25 02:51 | PDOC ---
History of Present Illness - General History Source: Patient, Spouse, Old Records Exam Limitations: No Limitations - History of Present Illness Initial Comments: 03/25/17 02:52 The patient is a 61 year old male, with a significant past medical history of hypertension, diabetes, CVA, coronary artery disease s/p stents and recent carotid surgery (03/22/2017 - [facility]), who presents to the emergency department feeling lightheaded just prior to presentation to the ED. The patient states that he was at home tonight when he suddenly felt lightheaded like he was going to pass out. However, the patient reports that he did not pass out. Given that the patient recently underwent carotid surgery, he initiated EMS and was brought to the ED for further evaluation. This patient was most recently seen in this ED yesterday (03/24/2017) where it was found that he has strep throat, the patient was ultimately treated with IM bicillin and discharged home. Currently in the ED, the patient endorses constipation, he states that he has not had a bowel movement since his recent carotid surgery on 03/22/2017. The patient denies chest pain or shortness of breath. The patient denies fever, chills, headache, cough, nausea, vomiting, diarrhea or dysuria. The patients is at the bedside. Allergies: JESSI Inhibitors Past Surgical History: Cardiac Stents, Carotid Surgery. Social History: Non smoker. Denies alcohol or drug use. PCP: Dr. Cat Surgeon: Dr. Tinsley ([facility]) <Catie Asif - Last Filed: 03/25/17 02:52> <Corrine Jaffe - Last Filed: 03/25/17 06:48> - General Chief Complaint: Syncope/Near Syncope Stated Complaint: WEAKNESS,SYNCOPE Time Seen by Provider: 03/25/17 01:34 Past History <Catie Asif - Last Filed: 03/25/17 02:52> - Past Medical History Cardiac Disorders: Yes ([place]) CVA: Yes Diabetes: Yes HTN: Yes - Surgical History Cardiac Surgery: Yes (carotid & cardiac stent) - Psycho/Social/Smoking Cessation Hx Anxiety: No Suicidal Ideation: No Smoking History: Never smoked Have you smoked in the past 12 months: No Information on smoking cessation initiated: No Hx Alcohol Use: No Drug/Substance Use Hx: No Substance Use Type: None <Corrine Jaffe - Last Filed: 03/25/17 06:48> - Past Medical History Allergies/Adverse Reactions: Allergies Allergy/AdvReac Type Severity Reaction Status Date / Time JESSI Inhibitors Allergy Swelling Verified 03/25/17 01:18 Home Medications: Ambulatory Orders Amlodipine Besylate [Norvasc -] 10 mg PO DAILY 02/14/17 Aspirin [ASA -] 81 mg PO DAILY 02/14/17 Metformin HCl [Glucophage -] 850 mg PO DAILY 02/14/17 Metoprolol Succinate [Toprol Xl] 100 mg PO DAILY 02/14/17 Exenatide Microspheres [Bydureon] 0 mg SQ Q7D 02/16/17 Irbesartan/Hydrochlorothiazide [Irbesartan-Hctz 300-12.5 mg Tb] 1 each PO DAILY 02/16/17 Omeprazole Magnesium [Prilosec] 10 mg PO DAILY 02/16/17 Prasugrel HCl [Effient] 10 mg PO DAILY 02/16/17 Rosuvastatin [Crestor -] 0 mg PO DAILY 02/24/17 Review of Systems - Review of Systems Able to Perform ROS?: Yes Comments:: 03/25/17 02:52 GENERAL/CONSTITUTIONAL: No fever or chills. No weakness. HEAD, EYES, EARS, NOSE AND THROAT: No change in vision. No ear pain or discharge. No sore throat. CARDIOVASCULAR: +Lightheadedness. No chest pain or shortness of breath. RESPIRATORY: No cough, wheezing, or hemoptysis. GASTROINTESTINAL: +Constipation. No nausea, vomiting or diarrhea. GENITOURINARY: No dysuria, frequency, or change in urination. MUSCULOSKELETAL: No joint or muscle swelling or pain. No neck or back pain. SKIN: No rash. NEUROLOGIC: No headache, vertigo, loss of consciousness, or change in strength/ sensation. ENDOCRINE: No increased thirst. No abnormal weight change. HEMATOLOGIC/LYMPHATIC: No anemia, easy bleeding, or history of blood clots. ALLERGIC/IMMUNOLOGIC: No hives or skin allergy. <Catie Asif - Last Filed: 03/25/17 02:52> *Physical Exam - Vital Signs Last Vital Signs Temp Pulse Resp BP Pulse Ox 98.6 F 96 H 18 186/88 100 03/25/17 01:18 03/25/17 01:18 03/25/17 01:18 03/25/17 01:18 03/25/17 01:18 - Physical Exam Comments: 03/25/17 02:51 GENERAL: Afebrile. Anxious appearing. Awake, alert, and fully oriented, in no acute distress. HEAD: No signs of trauma. EYES: PERRLA, EOMI, sclera anicteric, conjunctiva clear. ENT: Auricles normal inspection, hearing grossly normal, nares patent, oropharynx clear without exudates. Moist mucosa. NECK: Surgical dressing in place to the left side of neck. Normal ROM, supple, no lymphadenopathy, JVD, or masses. LUNGS: Breath sounds equal, clear to auscultation bilaterally. No wheezes, and no crackles. HEART: Regular rate and rhythm, normal S1 and S2, no murmurs, rubs or gallops. ABDOMEN: Soft, nontender, normoactive bowel sounds. No guarding, no rebound. No masses. EXTREMITIES: Normal range of motion, no edema. No clubbing or cyanosis. No cords , erythema, or tenderness. NEUROLOGICAL: Cranial nerves II through XII intact. Normal speech, normal gait. SKIN: Warm, dry, normal turgor, no rashes or lesions noted. <KennebecCatie Talley - Last Filed: 03/25/17 02:52> - Vital Signs Last Vital Signs Temp Pulse Resp BP Pulse Ox 98.6 F 96 H 18 186/88 100 03/25/17 01:18 03/25/17 01:18 03/25/17 01:18 03/25/17 01:18 03/25/17 01:18 <Corrine Jaffe - Last Filed: 03/25/17 06:48> ED Treatment Course - Medications Given in the ED: ED Medications Discontinued Medications Generic Name Dose Route Start Last Admin Trade Name Freq PRN Reason Stop Dose Admin Amlodipine Besylate 10 mg 03/25/17 01:33 03/25/17 02:18 Norvasc - PO 03/25/17 01:34 10 mg ONCE ONE Administration Lactulose 20 gm 03/25/17 02:19 03/25/17 02:46 Cephulac (Oral Use) PO 03/25/17 02:20 20 gm ONCE ONE Administration Metoprolol Tartrate 50 mg 03/25/17 01:33 03/25/17 02:17 Lopressor - PO 03/25/17 01:34 50 mg ONCE ONE Administration Polyethylene Glycol 17 gm 03/25/17 02:19 03/25/17 02:46 Miralax (For Daily Use) - PO 03/25/17 02:20 17 grams ONCE ONE Administration <Catie Asif - Last Filed: 03/25/17 02:52> - RADIOLOGY Radiology Studies Ordered: Category Date Time Status CHEST X-RAY PORTABLE* [RAD] Stat Radiology 03/25/17 01:33 Taken - Medications Given in the ED: ED Medications Discontinued Medications Generic Name Dose Route Start Last Admin Trade Name Freq PRN Reason Stop Dose Admin Amlodipine Besylate 10 mg 03/25/17 01:33 03/25/17 02:18 Norvasc - PO 03/25/17 01:34 10 mg ONCE ONE Administration Lactulose 20 gm 03/25/17 02:19 03/25/17 02:46 Cephulac (Oral Use) PO 03/25/17 02:20 20 gm ONCE ONE Administration Metoprolol Tartrate 50 mg 03/25/17 01:33 03/25/17 02:17 Lopressor - PO 03/25/17 01:34 50 mg ONCE ONE Administration Polyethylene Glycol 17 gm 03/25/17 02:19 03/25/17 02:46 Miralax (For Daily Use) - PO 03/25/17 02:20 17 grams ONCE ONE Administration <Corrine Jaffe - Last Filed: 03/25/17 06:48> Medical Decision Making - Medical Decision Making 03/25/17 06:45 Pt comes again today because he states that he felt near syncope. In fact he admits that he is nervous at home and he doesn't want to be alone if he strokes out. Pt is anxious and nervous. He is here with his . Pt has normal vitals after we treated his BP; he has not been compliant with his meds. He will go home with his . He has been reassured and he is feeling better. <Corrine Jaffe - Last Filed: 03/25/17 06:48> *DC/Admit/Observation/Transfer - Attestations Scribe Attestion: 03/25/17 02:51 Documentation prepared by Catie Asif, acting as medical supply technician for Corrine Jaffe MD. <Catie Asif - Last Filed: 03/25/17 02:52> - Discharge Dispostion Admit: No <Corrine Jaffe - Last Filed: 03/25/17 06:48> Diagnosis at time of Disposition: Anxiety, Dizziness, Constipated - Discharge Dispostion Disposition: HOME Condition at time of disposition: Stable - Referrals Referrals: Rigo Carroll [Primary Care Provider] - - Patient Instructions Printed Discharge Instructions: DI for Constipation, DI for Anxiety -- Adult
[2017-03-25 04:11] VITALS: TEMP 99
[2017-03-25] MEDS ORDERED: GLYCERIN 1 RECTAL SUPPOSITORY, ADULT PR ONE (04:27)
[2017-03-25] MEDS ORDERED: GLYCERIN 1 RECTAL SUPPOSITORY, ADULT RC ONE (04:32)
--- NOTE | 2017-03-27 11:52 | EKG ---
Test Reason : Blood Pressure : / mmHG Vent. Rate : 084 BPM Atrial Rate : 084 BPM P-R Int : 158 ms QRS Dur : 100 ms QT Int : 368 ms P-R-T Axes : 050 021 007 degrees QTc Int : 434 ms NORMAL SINUS RHYTHM POSSIBLE LEFT ATRIAL ENLARGEMENT INFERIOR INFARCT (CITED ON OR BEFORE 14-FEB-2017) ABNORMAL ECG WHEN COMPARED WITH ECG OF 24-MAR-2017 01:11, NO SIGNIFICANT CHANGE WAS FOUND Confirmed by NATA BUTLER MD ([id number]) on 03/27/2017 11:52:06 AM Referred By: Confirmed By:NATA BUTLER MD
== END 2017-03-25 04:42 | disposition home or self-care (01) ==
LOC: JER 01:07
DX: F06.4 Anxiety disorder due to known physiological condition (principal); K59.00 Constipation, unspecified; I10 Essential (primary) hypertension; E11.9 Type 2 diabetes mellitus without complications; Z79.84 Long term (current) use of oral hypoglycemic drugs; Z86.73 Personal history of transient ischemic attack (TIA), and cerebral infarction without residual deficits; Z98.62 Peripheral vascular angioplasty status
CPT/HCPCS: 36415; 71010-TC; 85025; 93005; 93010; 99283-25

== ENCOUNTER 2017-04-03 21:20 | Emergency (ER) | payer OTHER ==
--- NOTE | 2017-04-03 22:20 | PDOC ---
History of Present Illness - General Stated Complaint: WEAKNESS Time Seen by Provider: 04/03/17 22:11 History Source: Patient Exam Limitations: No Limitations - History of Present Illness Initial Comments: 04/04/17 00:52 61yo Male patient w/ PmHx: Carotid stent placement and Carotid Endarterectomy 2 weeks ago with positive strep throat diagnosis. Patient was put on a 7 day course of Abx. Patient does not remember what abx. Patient state while at home, his B/P was elevated at 201 SBP w/ associated chest tightness and not feeling himself tonight. Denies fever, CP, Back pain, abd pain, cough or any other complaints at this time. Past History - Travel Traveled outside of the country in the last 30 days: No Close contact w/someone who was outside of country & ill: No - Past Medical History Allergies/Adverse Reactions: Allergies Allergy/AdvReac Type Severity Reaction Status Date / Time JESSI Inhibitors Allergy Swelling Verified 04/03/17 22:49 Home Medications: Ambulatory Orders Amlodipine Besylate [Norvasc -] 10 mg PO DAILY 02/14/17 Aspirin [ASA -] 81 mg PO DAILY 02/14/17 Metformin HCl [Glucophage -] 850 mg PO DAILY 02/14/17 Metoprolol Succinate [Toprol Xl] 100 mg PO DAILY 02/14/17 Exenatide Microspheres [Bydureon] 0 mg SQ Q7D 02/16/17 Irbesartan/Hydrochlorothiazide [Irbesartan-Hctz 300-12.5 mg Tb] 1 each PO DAILY 02/16/17 Omeprazole Magnesium [Prilosec] 10 mg PO DAILY 02/16/17 Prasugrel HCl [Effient] 10 mg PO DAILY 02/16/17 Rosuvastatin [Crestor -] 0 mg PO DAILY 02/24/17 Cardiac Disorders: Yes ([place]) CVA: Yes Diabetes: Yes HTN: Yes - Surgical History Cardiac Surgery: Yes (carotid & cardiac stent) - Psycho/Social/Smoking Cessation Hx Anxiety: No Suicidal Ideation: No Smoking History: Never smoked Have you smoked in the past 12 months: No Hx Alcohol Use: No Drug/Substance Use Hx: No Substance Use Type: None Cardiac Specific PMH - Complaint Specific PMHX Abdominal Aortic Aneurysm: No Angina: No Cardiac Arrhythmia: No Cardiac Stent: No GERD: No Myocardial Infarction: No Pacemaker: No Pulmonary Embolus: No Valvular Heart Disease: No Peripheral Vascular Disease: No Review of Systems - Review of Systems Able to Perform ROS?: Yes Is the patient limited Polish proficient: No Constitutional: No: Chills, Fever HEENTM: No: Eye Pain, Nose Congestion, Throat Pain, Throat Swelling, Difficulty Swallowing, Mouth Swelling Respiratory: No: Cough, Orthopnea, Shortness of Breath, Stridor, Wheezing, Productive cough Cardiac (ROS): Yes: Chest Tightness. No: Chest Pain, Edema, Lightheadedness, Palpitations, Syncope ABD/GI: No: Constipated, Diarrhea, Nausea, Poor Appetite, Poor Fluid Intake, Vomiting, Abdominal cramping : No: Burning, Dysuria, Flank Pain, Hematuria Musculoskeletal: No: Back Pain Integumentary: No: Bruising, Erythema, Pruritus, Rash Neurological: No: Headache, Seizure, Tingling, Ataxia, Dizziness All Other Systems: Reviewed and Negative *Physical Exam - Vital Signs Last Vital Signs Temp Pulse Resp BP Pulse Ox 98.1 F 90 14 111/93 100 04/03/17 22:49 04/03/17 22:49 04/03/17 22:49 04/03/17 22:49 04/03/17 22:49 - Physical Exam General Appearance: Yes: Nourished, Appropriately Dressed. No: Apparent Distress, Mild Distress, Moderate Distress, Severe Distress HEENT: positive: EOMI, ARASH, Normal ENT Inspection, Normal Voice, Symmetrical, TMs Normal, Pharynx Normal. negative: Pharyngeal Erythema, Tonsillar Exudate, Tonsillar Erythema, Nasal Congestion, Rhinorrhea, TM Bulging, TM Dull, TM Erythema Neck: positive: Trachea midline, Supple, Other (Healing incision to left side of neck. No signs of infection.). negative: Lymphadenopathy (R), Lymphadenopathy (L) Respiratory/Chest: positive: Lungs Clear, Normal Breath Sounds. negative: Respiratory Distress, Labored Respiration, Rapid RR, Decreased Breath Sounds, Rhonchi, Stridor, Wheezing Cardiovascular: positive: Regular Rhythm, Regular Rate Gastrointestinal/Abdominal: positive: Normal Bowel Sounds, Soft. negative: Distended, Guarding, Rebound, Tenderness Musculoskeletal: positive: Normal Inspection. negative: CVA Tenderness, Decreased Range of Motion, Vertebral Tenderness Extremity: positive: Normal Capillary Refill, Normal Inspection, Normal Range of Motion. negative: Pedal Edema, Swelling, Calf Tenderness, Erythema Integumentary: positive: Normal Color, Dry, Warm. negative: Pale, Hives, Rash, Swelling Neurologic: positive: distillation operator helper II-XII NML intact, Fully Oriented, Alert, Normal Mood/ Affect, Normal Response, Motor Strength 5/5 Heart Score/ECG Review - History History: Slightly suspicious - Electrocardiogram EKG: Normal - Age Age: 45-65 - Risk Factors Risk Factors Heart Score: Yes Hx Hypertension Based on the list above the patient has:: 1-2 risk factors - Troponin Troponin: </= normal limit - Score Heart Score - Total: 2 - ECG Impressions Normal ECG: Yes Non-specific ST Elevation: No Ischemic Changes: No Bradycardia: No Torsades martita Pointes: No WPW: No ED Treatment Course - LABORATORY CBC & Chemistry Diagram: 04/04/17 01:45 04/03/17 23:45 - ADDITIONAL ORDERS Additional order review: Laboratory Results 04/04/17 04/03/17 04/03/17 00:26 23:45 23:45 INR PTT (Actin FS) Sodium 140 Potassium 4.3 Chloride 101 Carbon Dioxide 30 Anion Gap 9 BUN 12 Creatinine 1.0 D Creat Clearance w eGFR > 60 Random Glucose 189 H Calcium 9.4 Total Bilirubin 0.3 D AST 20 D ALT 33 D Alkaline Phosphatase 111 Creatine Kinase 244 D Creatine Kinase Index 1.3 CK-MB (CK-2) 3.152 CK-MB (CK-2) Rel Index Cancelled Troponin I < 0.02 Total Protein 7.6 Albumin 3.7 Urine Color Straw Urine Appearance Clear Urine pH 6.0 D Urine Protein Negative Urine Glucose (UA) 3+ H Urine Ketones Negative Urine Blood Negative Urine Nitrite Negative Urine Bilirubin Negative Urine Urobilinogen Negative Ur Leukocyte Esterase Negative 04/03/17 23:45 INR 1.02 PTT (Actin FS) 27.7 Sodium Potassium Chloride Carbon Dioxide Anion Gap BUN Creatinine Creat Clearance w eGFR Random Glucose Calcium Total Bilirubin AST ALT Alkaline Phosphatase Creatine Kinase Creatine Kinase Index CK-MB (CK-2) CK-MB (CK-2) Rel Index Troponin I Total Protein Albumin Urine Color Urine Appearance Urine pH Urine Protein Urine Glucose (UA) Urine Ketones Urine Blood Urine Nitrite Urine Bilirubin Urine Urobilinogen Ur Leukocyte Esterase 04/04/17 01:45 RBC 3.46 L D MCV 78.9 L MCHC 32.8 RDW 14.0 MPV 8.6 Neutrophils % 72.7 Lymphocytes % 19.8 D Monocytes % 6.0 Eosinophils % 0.8 D Basophils % 0.7 - RADIOLOGY Radiology Studies Ordered: Category Date Time Status CHEST PA & LAT [RAD] Stat Radiology 04/04/17 00:09 Taken *DC/Admit/Observation/Transfer Diagnosis at time of Disposition: Atypical chest pain - Discharge Dispostion Disposition: HOME Condition at time of disposition: Improved Admit: No - Patient Instructions Printed Discharge Instructions: DI for Atypical Chest Pain Additional Instructions: FOLLOW UP WITH YOUR [employer] TORCH SOLDERER FOR FURTHER EVALUATION. CALL TO SCHEDULE APPOINTMENT DISCUSSED. TAKE MEDICATIONS PRESCRIBED. RETURN IF SYMPTOMS WORSEN OR ANY CONCERNS FOR FURTHER EVALUATION. YOUR HGB IS 8.9. HAVE YOU DOCTOR REPEAT THIS BLOOD WORK NEXT WEEK TO MONITOR FOR CHANGES. AGAIN, RETURN IF ANY CONCERNS. Print Language: SAMI
[2017-04-03 22:51] VITALS: BP 111/93; PULSE 90; TEMP 98.1; BMI 58.6
[2017-04-04 00:27] LABS: INR 1.02 (0.82-1.09); PROTHROMBIN TIME (PATIENT) 11.2 SEC (9.98-11.88)
[2017-04-04 00:30] LABS: ACTIVATED PTT 27.7 SECONDS (26.9-34.4)
[2017-04-04 00:35] LABS: URINE APPEARANCE CLEAR; URINE BILIRUBIN NEGATIVE (NEGATIVE); URINE BLOOD NEGATIVE (NEGATIVE); URINE COLOR STRAW; URINE GLUCOSE (UA) 3+ (NEGATIVE); URINE KETONE NEGATIVE (NEGATIVE); URINE LEUK ESTERASE NEGATIVE (NEGATIVE); URINE NITRITE NEGATIVE (NEGATIVE); URINE PROTEIN NEGATIVE (NEGATIVE); URINE UROBILINOGEN NEGATIVE E.U./dl (0.2-1.0)
[2017-04-04 00:37] LABS: ALBUMIN 3.7 g/dl (3.4-5.0); ANION GAP 9 (8-16); CALCIUM 9.4 mg/dL (8.5-10.1); CO2 30 mmol/L (21-32); COCKROFT - GAULT 202; GLUCOSE,RANDOM 189 mg/dL (74-106)
[2017-04-04 00:43] LABS: ALK PHOS 111 U/L (45-117); BILIRUBIN,TOTAL 0.3 mg/dL (0.2-1.0); SGOT/AST 20 U/L (15-37); SGPT/ALT 33 U/L (12-78); TOT PROT 7.6 g/dl (6.4-8.2); TROPONIN I < 0.02 ng/ml (0.00-0.05)
[2017-04-04 01:55] LABS: BASOPHIL 0.7 % (0-2.0); EOSINOPHIL 0.8 % (0-4.5); MCH 25.9 pg (25.7-33.7); MCHC 32.8 g/dl (32.0-35.9); MEAN CELL VOLUME 78.9 fl (80-96); MEAN PLT VOLUME 8.6 fl (7.5-11.1); NEUTROPHILS 72.7 % (42.8-82.8); PLATELET COUNT 223 K/MM3 (134-434); WHITE BLOOD COUNT 5.9 K/mm3 (4.0-10.0)
--- NOTE | 2017-04-04 17:27 | EKG ---
Test Reason : Blood Pressure : / mmHG Vent. Rate : 068 BPM Atrial Rate : 068 BPM P-R Int : 164 ms QRS Dur : 090 ms QT Int : 370 ms P-R-T Axes : 041 017 013 degrees QTc Int : 393 ms POOR DATA QUALITY, INTERPRETATION MAY BE ADVERSELY AFFECTED NORMAL SINUS RHYTHM INFERIOR INFARCT (CITED ON OR BEFORE 14-FEB-2017) ABNORMAL ECG WHEN COMPARED WITH ECG OF 25-MAR-2017 01:21, NO SIGNIFICANT CHANGE WAS FOUND Confirmed by YANG ABBOTT MD ([id number]) on 04/04/2017 5:26:49 PM Referred By: Confirmed By:YANG ABBOTT MD
== END 2017-04-04 02:20 | disposition home or self-care (01) ==
LOC: JER 21:20
DX: R07.89 Other chest pain (principal); Z95.828 Presence of other vascular implants and grafts; I25.2 Old myocardial infarction; Z86.73 Personal history of transient ischemic attack (TIA), and cerebral infarction without residual deficits; E11.9 Type 2 diabetes mellitus without complications
CPT/HCPCS: 36415; 71020-TC; 80053; 81003; 82550; 82553; 84484; 85025; 85610; 85730; 93005; 93010; 99282-25

== ENCOUNTER 2017-04-12 09:05 | Emergency (ER) | payer OTHER ==
[2017-04-12 09:40] LABS: BASOPHIL 0.2 % (0-2.0); EOSINOPHIL 0.9 % (0-4.5); MCH 25.8 pg (25.7-33.7); MCHC 32.7 g/dl (32.0-35.9); MEAN CELL VOLUME 78.9 fl (80-96); MEAN PLT VOLUME 8.1 fl (7.5-11.1); NEUTROPHILS 66.4 % (42.8-82.8); PLATELET COUNT 234 K/MM3 (134-434); RDW 14.4 % (11.9-15.9); WHITE BLOOD COUNT 5.8 K/mm3 (4.0-10.0)
[2017-04-12 09:46] VITALS: BMI 27.3
--- NOTE | 2017-04-12 09:51 | PDOC ---
History of Present Illness - General History Source: Patient, Old Records Exam Limitations: No Limitations <Demar Nair - Last Filed: 04/12/17 11:20> <Dragan Zayas - Last Filed: 04/12/17 17:28> - General Stated Complaint: CHEST PAIN,DIZZINESS Time Seen by Provider: 04/12/17 09:17 - History of Present Illness Initial Comments: The patient is a 61 year old male with a significant past medical history of diabetes, HTN, CVA, CAD s/p pci on effient, who presents to the emergency department today for further evaluation of dizziness and chest pain this morning. The patient states he was feeling well this morning, and that he drove to the store this morning to buy a sandwich and began to feel lightheaded and dizzy. The patient notes at that time he ate candy to see if it was due to low blood sugar, and felit slightly better with minimal alleviation. He reports that he then went home sat down to check his blood pressure and began to experience chest pain. He describes his chest pain as sharp and approx 2 minutes in duration w/o associated n/v, diaphoresis, sob. He did not cite any alleviating/exacerbating factors but notes his chest pain is not exacerbated on exertion as he walks regularly with his daugther and even up a large hill. He notes that he has been compliant with all of his medications. The patient denies fever, chills, and sweats. The patient denies nausea, vomiting, diaphoresis, and diarrhea. The patient denies cough, shortness of breath, and shortness of breath on exertion. PCP: Dr. Alvarez CARDIO: Dr. Rizo PAST MEDICAL HISTORY: Diabetes, HTN, CVA, CAD with [place] PAST SURGICAL HISTORY: Carotid surgery Carotid stent placement (4), and Carotid Endarterectomy (03/2017) FAMILY HISTORY: Noncontributory SOCIAL HISTORY: Reports having never smoked, drank, or used recreational drugs. MEDICATIONS: As per ED note. Has been on Effient for 2 years (switched from Plavix) ALLERGIES: As per nursing notes (Demar Nair) Past History <Demar Nair - Last Filed: 04/12/17 11:20> - Past Medical History Cardiac Disorders: Yes ([place]) CVA: Yes Diabetes: Yes HTN: Yes - Surgical History Cardiac Surgery: Yes (carotid & cardiac stent) - Psycho/Social/Smoking Cessation Hx Anxiety: No Suicidal Ideation: No Smoking History: Never smoked Have you smoked in the past 12 months: No Hx Alcohol Use: No Drug/Substance Use Hx: No Substance Use Type: None <Dragan Zayas - Last Filed: 04/12/17 17:28> - Past Medical History Allergies/Adverse Reactions: Allergies Allergy/AdvReac Type Severity Reaction Status Date / Time JESSI Inhibitors Allergy Swelling Verified 04/12/17 09:46 Home Medications: Ambulatory Orders Amlodipine Besylate [Norvasc -] 10 mg PO DAILY 02/14/17 Aspirin [ASA -] 81 mg PO DAILY 02/14/17 Metformin HCl [Glucophage -] 850 mg PO DAILY 02/14/17 Metoprolol Succinate [Toprol Xl] 100 mg PO DAILY 02/14/17 Exenatide Microspheres [Bydureon] 0 mg SQ Q7D 02/16/17 Irbesartan/Hydrochlorothiazide [Irbesartan-Hctz 300-12.5 mg Tb] 1 each PO DAILY 02/16/17 Omeprazole Magnesium [Prilosec] 10 mg PO DAILY 02/16/17 Prasugrel HCl [Effient] 10 mg PO DAILY 02/16/17 Rosuvastatin [Crestor -] 0 mg PO DAILY 02/24/17 Cardiac Specific PMH - Complaint Specific PMHX Abdominal Aortic Aneurysm: No Angina: No Cardiac Arrhythmia: No Cardiac Stent: No GERD: No Pacemaker: No Pulmonary Embolus: No Valvular Heart Disease: No Peripheral Vascular Disease: No <Dragan Zayas - Last Filed: 04/12/17 17:28> Review of Systems - Review of Systems Able to Perform ROS?: Yes <Demar Nair - Last Filed: 04/12/17 11:20> <Dragan Zayas - Last Filed: 04/12/17 17:28> - Review of Systems Comments:: CONSTITUTIONAL: No reported: Fever, Chills, Diaphoresis, Generalized Weakness, Malaise, Loss of Appetite HEENT: No reported: Rhinorrhea, Nasal Congestion, Throat Pain, Throat Swelling, Difficulty Swallowing, Mouth Swelling, Ear Pain, Eye Pain, Visual Changes CARDIOVASCULAR: Reported: Chest pain, lightheadedness No reported: Syncope, Palpitations, Irregular Heart Rate, Peripheral Edema RESPIRATORY: No reported: Cough, Shortness of Breath, SOB with Exertion, Orthopnea, Wheezing , Stridor, Hemoptysis GASTROINTESTINAL: No reported: Abdominal pain, Abdominal Distension, Nausea, Vomiting, Diarrhea, Constipation, Melena, Hematochezia GENITOURINARY: No reported: Dysuria, Frequency, Urgency, Hesitancy, Flank Pain, Genital Pain MUSCULOSKELETAL: No reported: Myalgia, Arthralgia, Joint Swelling, Back pain, Neck Pain SKIN: No reported: Rash, Itching, Pallor HEMATOLOGIC/IMMUNOLOGIC: No reported: Easy Bleeding, Easy Bruising, Lymphadenopathy, Frequent infections ENDOCRINE: No reported: Unexplained Weight Gain, Unexplained Weight Loss, Heat Intolerance , Cold Intolerance NEUROLOGIC: No reported: Headache, Focal Weakness, Paresthesias, Vertigo, Lightheadedness, Seizure, Mental Status Changes, Incontinence PSYCHIATRIC: No reported: Anxiety, Depression (Demar Nair) *Physical Exam <Demar Nair - Last Filed: 04/12/17 11:20> <Dragan Zayas - Last Filed: 04/12/17 17:28> - Vital Signs Last Vital Signs Temp Pulse Resp BP Pulse Ox 98 F 89 16 147/94 100 04/12/17 16:49 04/12/17 16:49 04/12/17 16:49 04/12/17 16:49 04/12/17 16:49 - Physical Exam Comments: GENERAL: The patient is awake, alert, and fully oriented, Nontoxic - in no acute distress. HEAD: Normocephalic, atraumatic. EYES: extraocular movements intact, sclera anicteric, conjunctiva clear. ENT: Normal voice, Moist mucous membranes. NECK: Normal range of motion, No JVD, well healed scar on his L neck LUNGS: Breath sounds equal, clear to auscultation bilaterally. No wheezes, no rhonchi, no rales. HEART: Regular rate and rhythm, normal S1 and S2 without murmur, rub or gallop. ABDOMEN: Soft, nontender, normoactive bowel sounds. No guarding, no rebound. No masses. No CVA tenderness RECTAL: yellow stool, EXTREMITIES: Normal range of motion, no edema. No clubbing or cyanosis. No cords , erythema, or tenderness. NEUROLOGICAL: No facial asymmetry, Normal speech. PSYCH: Normal mood, normal affect. SKIN: Warm, Dry, normal turgor. (Demar Nair) Heart Score/ECG Review <Demar Nair - Last Filed: 04/12/17 11:20> - History History: Slightly suspicious - Electrocardiogram EKG: Non specific repolarization disturbance - Age Age: 45-65 - Risk Factors Risk Factors Heart Score: Yes Hx Hypercholesterolemia, Yes Hx Hypertension, Yes Hx Diabetes Based on the list above the patient has:: >/=3 risk factors or Hx atherosclerotic disease - Troponin Troponin: </= normal limit - Score Heart Score - Total: 4 <Dragan Zayas - Last Filed: 04/12/17 17:28> - ECG Impressions Comment:: 04/12/17 09:50 Twelve-lead EKG was performed and reviewed by me. There is normal sinus rhythm with a normal rate. Rate of 94 Q waves in lead 3, T wave inversions in lead 3 No significant changes when compared with prior EKG dated 04/04/2017 (Dragan Zayas) ED Treatment Course - LABORATORY CBC & Chemistry Diagram: 04/12/17 09:32 04/12/17 09:32 <Demar Nair - Last Filed: 04/12/17 11:20> - LABORATORY CBC & Chemistry Diagram: 04/12/17 09:32 04/12/17 09:32 <Dragan Zayas - Last Filed: 04/12/17 17:28> - ADDITIONAL ORDERS Additional order review: Laboratory Results 04/12/17 04/12/17 04/12/17 15:45 15:45 09:56 INR Sodium Potassium Chloride Carbon Dioxide Anion Gap BUN Creatinine Creat Clearance w eGFR Random Glucose Calcium Magnesium Total Bilirubin AST ALT Alkaline Phosphatase Creatine Kinase 245 D Creatine Kinase Index CK-MB (CK-2) CK-MB (CK-2) Rel Index Cancelled Troponin I 0.02 Total Protein Albumin Lipase Stool Occult Blood Blood Type AB POSITIVE Antibody Screen Negative 04/12/17 04/12/17 04/12/17 09:40 09:32 09:32 INR 0.97 Sodium Potassium Chloride Carbon Dioxide Anion Gap BUN Creatinine Creat Clearance w eGFR Random Glucose Calcium Magnesium Total Bilirubin AST ALT Alkaline Phosphatase Creatine Kinase Creatine Kinase Index CK-MB (CK-2) CK-MB (CK-2) Rel Index Cancelled Troponin I Total Protein Albumin Lipase Stool Occult Blood Negative Blood Type Antibody Screen 04/12/17 09:32 INR Sodium 140 Potassium 3.9 Chloride 98 Carbon Dioxide 33 H Anion Gap 9 BUN 11 Creatinine 0.9 Creat Clearance w eGFR > 60 Random Glucose 164 H Calcium 9.4 Magnesium 2.1 Total Bilirubin 0.4 D AST 17 ALT 30 Alkaline Phosphatase 121 H Creatine Kinase 320 H D Creatine Kinase Index 1.0 CK-MB (CK-2) 3.423 CK-MB (CK-2) Rel Index Troponin I < 0.02 Total Protein 8.2 Albumin 4.1 Lipase 129 Stool Occult Blood Blood Type Antibody Screen 04/12/17 09:32 RBC 5.59 D MCV 78.9 L MCHC 32.7 RDW 14.4 MPV 8.1 Neutrophils % 66.4 Lymphocytes % 25.3 D Monocytes % 7.2 Eosinophils % 0.9 Basophils % 0.2 - RADIOLOGY Radiology Studies Ordered: Category Date Time Status CHEST X-RAY PORTABLE* [RAD] Stat Radiology 04/12/17 09:25 Completed Radiograph Interpretation: 04/12/17 10:35 EXAM#: TYPE/EXAM: RESULT: [id number] RAD/CHEST X-RAY PORTABLE* Chest pain. Single portable chest x-ray. Comparison study April 04, 2017. Unremarkable contour of the cardiomediastinal silhouette. No evidence of pneumonia, CHF, atelectasis , pleural effusion or pneumothorax. Intact visualized osseous structures. Right lateral spondylosis noted in the thoracic spine at several levels. Intact visualized osseous structures. Impression. No evidence of active pulmonary disease. Punctate radiopaque nodular opacity projecting over the left lower lobe. Reported By: Nick Gee MD 04/12/17 1012 (Demar Nair) - Medications Given in the ED: ED Medications Discontinued Medications Generic Name Dose Route Start Last Admin Trade Name Freq PRN Reason Stop Dose Admin Hydrochlorothiazide 12.5 mg 04/12/17 10:49 04/12/17 11:07 Hctz - PO 04/12/17 10:50 12.5 mg DAILY ONE Administration Medical Decision Making <Demar Nair - Last Filed: 04/12/17 11:20> <Dragan Zayas - Last Filed: 04/12/17 17:28> - Medical Decision Making 04/12/17 09:47 61y M hx of DM, HL, HTN, CAD s/p stent, presents with complaint of episode of dizziness/lightheadedness this morning and then later had a brief episode of chest pain lasting for 2 minutes that was sharp, and has since resolved w/o associated exertional symptoms, sob, diaphoresis, n/v. The pt was here last week, and noted anemic to 8.9, possibly secondary to recent endaradectomy. Pts exam is unremarkable will obtain trop x 2, consdier Acs however the pts cp seems atypical of acs will ck his stool guaiac and recheck his hgb as he is on effient and was noted anemic 1 week ago pmd: mary cards: junior A portion of this note was documented by scribe services under my direction. I have reviewed the details of the note, within reason, and agree with the documentation with the following case summary and management plan written by me 04/12/17 12:12 the pts labs are unremarakble pts trop neg x 1 anemia resolved, currently at baseline pt currently pain free will obtain 2nd troponin 04/12/17 16:50 trop neg x 2 discussed with possbility of obseration but pt does NOT want to stay for observation, and after much discussion, agred to just do a 2nd troponin will d/c the pt with pmd fu return precautions were discussed I discussed the physical exam findings, ancillary test results and final diagnoses with the patient. I answered all of the patient's questions. The patient was satisfied with the care received and felt comfortable with the discharge plan and treatment plan. The patient will call their primary care physician within 24 hours to arrange follow-up and will return to the Emergency Department with any new, persistent or worsening symptoms. (Dragan Zayas) *DC/Admit/Observation/Transfer <Demar Nair - Last Filed: 04/12/17 11:20> - Discharge Dispostion Admit: No <Dragan Zayas - Last Filed: 04/12/17 17:28> Diagnosis at time of Disposition: Chest pain Qualifiers: Chest pain type: unspecified Qualified Code(s): R07.9 - Chest pain, unspecified - Discharge Dispostion Disposition: HOME Condition at time of disposition: Improved - Referrals Referrals: Melchor Singh MD [Primary Care Provider] - - Patient Instructions Printed Discharge Instructions: DI for Chest Pain Additional Instructions: Return to the emergency department immediately with ANY new, persistent or worsening symptoms including recurrent episodes of chest pain, shortness of breath or other concerns. You MUST call and follow up with your doctor tomorrow for further evaluation of your symptoms. Results were discussed with you. Please make sure your doctor reviews the results of your emergency evaluation. Print Language: AZERI - Attestations Scribe Attestion: Documentation prepared by Demar Nair, acting as auditor medical claims for Dragan Zayas MD. (Demar Nair)
[2017-04-12 09:55] LABS: INR 0.97 (0.82-1.09); PROTHROMBIN TIME (PATIENT) 10.7 SEC (9.98-11.88)
[2017-04-12 10:06] LABS: ALBUMIN 4.1 g/dl (3.4-5.0); ANION GAP 9 (8-16); BILIRUBIN,TOTAL 0.4 mg/dL (0.2-1.0); CALCIUM 9.4 mg/dL (8.5-10.1); CO2 33 mmol/L (21-32); COCKROFT - GAULT 102.05; CREATININE 0.9 mg/dL (0.7-1.3); GLUCOSE,RANDOM 164 mg/dL (74-106); MAGNESIUM 2.1 mg/dL (1.8-2.4); SGOT/AST 17 U/L (15-37); SGPT/ALT 30 U/L (12-78); TOT PROT 8.2 g/dl (6.4-8.2)
[2017-04-12 10:09] LABS: ALK PHOS 121 U/L (45-117); TROPONIN I < 0.02 ng/ml (0.00-0.05)
[2017-04-12] MEDS ORDERED: HYDROCHLOROTHIAZIDE 12.5 MG CAPSULE (FP) PO ONE (10:49)
--- NOTE | 2017-04-12 11:00 | EKG ---
Test Reason : Blood Pressure : / mmHG Vent. Rate : 094 BPM Atrial Rate : 094 BPM P-R Int : 158 ms QRS Dur : 090 ms QT Int : 354 ms P-R-T Axes : 059 015 012 degrees QTc Int : 442 ms POOR DATA QUALITY, INTERPRETATION MAY BE ADVERSELY AFFECTED NORMAL SINUS RHYTHM POSSIBLE LEFT ATRIAL ENLARGEMENT INFERIOR INFARCT (CITED ON OR BEFORE 14-FEB-2017) POSSIBLE ANTERIOR INFARCT , AGE UNDETERMINED ABNORMAL ECG WHEN COMPARED WITH ECG OF 04-APR-2017 00:36, QT HAS LENGTHENED Confirmed by MAYDA FRIEND MD ([id number]) on 04/12/2017 11:00:02 AM Referred By: Confirmed By:MAYDA FRIEND MD
[2017-04-12] MEDS ORDERED: HYDROCHLOROTHIAZIDE 25 MG TABLET (FP) ONE (11:07)
[2017-04-12 18:35] VITALS: BP 143/90; PULSE 82; TEMP 97.8
== END 2017-04-12 18:05 | disposition home or self-care (01) ==
LOC: JER 09:05
DX: R07.89 Other chest pain (principal); I25.2 Old myocardial infarction; I11.9 Hypertensive heart disease without heart failure; Z95.5 Presence of coronary angioplasty implant and graft; E11.9 Type 2 diabetes mellitus without complications; Z79.84 Long term (current) use of oral hypoglycemic drugs; E78.00 Pure hypercholesterolemia, unspecified; Z86.73 Personal history of transient ischemic attack (TIA), and cerebral infarction without residual deficits
CPT/HCPCS: 36415; 71010-TC; 80053; 82272; 82550; 82553; 83690; 83735; 84484; 85025; 85610; 86850; 86900; 86901; 93005; 93010; 99285-25

== ENCOUNTER 2017-05-08 00:03 | Emergency (ER) | payer OTHER ==
[2017-05-08 00:26] VITALS: PULSE 83; TEMP 97.9; BMI 28.0
[2017-05-08] MEDS ORDERED: ASPIRIN 81 MG CHEWABLE TABLETS PO ONE (00:28)
--- NOTE | 2017-05-08 00:28 | PDOC ---
History of Present Illness - General History Source: Patient Exam Limitations: No Limitations <Rosio Ambrose - Last Filed: 05/08/17 01:12> <MiloInessa Silva - Last Filed: 05/08/17 02:14> - General Chief Complaint: Chest Pain Stated Complaint: CHEST PAIN Time Seen by Provider: 05/08/17 00:23 - History of Present Illness Initial Comments: 62 yo M with a PMHx of DM, HTN, CVA (January,), [place], CAD s/p pci on effient presents with nonradiating chest pain since 6:30 PM today. Patient reports the pain began after eating soup today. He describes the pain as a gassy , burning sensation that is worsened by sitting up. Patient reports the pain is slightly alleviated by drinking green tea. Patient states the pain is not worsened by movement. Patient denies shortness of breath, diaphoresis, back pain and lightheadedness. Patient denies nausea, vomiting, diarrhea and abdominal pain. Upon evaluation, patient reports pain is resolved. Allergies: JESSI inhibitors Social Hx: Denies Pain Medicine Physician: Dr. Rizo (Rosio Ambrose) Past History <Rosio Ambrose - Last Filed: 05/08/17 01:12> - Past Medical History Cardiac Disorders: Yes ([place]) CVA: Yes Diabetes: Yes HTN: Yes Hypercholesterolemia: Yes - Surgical History Cardiac Surgery: Yes (carotid & cardiac stent) - Psycho/Social/Smoking Cessation Hx Anxiety: No Suicidal Ideation: No Smoking History: Never smoked Have you smoked in the past 12 months: No Hx Alcohol Use: No Drug/Substance Use Hx: No Substance Use Type: None <Inessa Pedraza - Last Filed: 05/08/17 02:14> - Past Medical History Allergies/Adverse Reactions: Allergies Allergy/AdvReac Type Severity Reaction Status Date / Time JESSI Inhibitors Allergy Swelling Verified 05/08/17 00:26 Home Medications: Ambulatory Orders Aspirin [ASA -] 81 mg PO DAILY 02/14/17 Metformin HCl [Glucophage -] 850 mg PO BID 02/14/17 Metoprolol Succinate [Toprol Xl] 100 mg PO DAILY 02/14/17 Exenatide Microspheres [Bydureon] 2 mg SQ Q7D 02/16/17 Irbesartan/Hydrochlorothiazide [Irbesartan-Hctz 300-12.5 mg Tb] 1 each PO DAILY 02/16/17 Omeprazole Magnesium [Prilosec] 10 mg PO DAILY 02/16/17 Prasugrel HCl [Effient] 10 mg PO DAILY 02/16/17 Rosuvastatin [Crestor -] 40 mg PO DAILY 02/24/17 Canagliflozin [Invokana] 100 mg PO ASDIR 05/08/17 Cardiac Specific PMH - Complaint Specific PMHX Abdominal Aortic Aneurysm: No Angina: No Cardiac Arrhythmia: No Cardiac Stent: No GERD: No Pacemaker: No Pulmonary Embolus: No Valvular Heart Disease: No Peripheral Vascular Disease: No <Inessa Pedraza - Last Filed: 05/08/17 02:14> Review of Systems - Review of Systems Able to Perform ROS?: Yes <Rosio Ambrose - Last Filed: 05/08/17 01:12> <Inessa Pedraza - Last Filed: 05/08/17 02:14> - Review of Systems Comments:: CONSTITUTIONAL: Absent: fever, chills, diaphoresis, generalized weakness, malaise, loss of appetite HEENT: Absent: rhinorrhea, nasal congestion, throat pain, throat swelling, difficulty swallowing, mouth swelling, ear pain, eye pain, visual Changes CARDIOVASCULAR: + chest pain. Absent: syncope, palpitations, irregular heart rate, lightheadedness, peripheral edema RESPIRATORY: Absent: cough, shortness of breath, dyspnea with exertion, orthopnea, wheezing, stridor, hemoptysis GASTROINTESTINAL: Absent: abdominal pain, abdominal distension, nausea, vomiting , diarrhea, constipation, melena, hematochezia GENITOURINARY: Absent: dysuria, frequency, urgency, hesitancy, hematuria, flank pain, genital pain MUSCULOSKELETAL: Absent: myalgia, arthralgia, joint swelling SKIN: Absent: rash , itching, pallor NEUROLOGIC: Absent: headache, focal weakness or paresthesia, dizziness, seizure , mental status changes, bladder or bowel incontinence SYCHIATRIC: Absent: anxiety, depression, suicidal or homicidal ideation, hallucination (Rosio Ambrose) *Physical Exam <Jorge LuisRosio nina - Last Filed: 05/08/17 01:12> <Inessa Pedraza - Last Filed: 05/08/17 02:14> - Vital Signs Last Vital Signs Temp Pulse Resp BP Pulse Ox 97.9 F 83 20 155/87 99 05/08/17 00:06 05/08/17 00:06 05/08/17 00:06 05/08/17 00:06 05/08/17 00:06 - Physical Exam Comments: GENERAL: Well developed, well nourished. Awake and alert. No acute distress. HEENT: Normocephalic, atraumatic, well healed. PERRLA, EOMI. No conjunctival pallor. Sclera are non-icteric. Moist mucous membranes. Oropharynx is clear. NECK: Incisional scar on L side of neck. Supple. Full ROM. No JVD. Carotid pulses 2+ and symmetric, without bruits. No thyromegaly. No lymphadenopathy. CARDIOVASCULAR: Regular rate and rhythm. No murmurs, rubs, or gallops. Distal pulses are 2+ and symmetric. PULMONARY: No evidence of respiratory distress. Lungs clear to auscultation bilaterally. No wheezing, rales or rhonchi. ABDOMINAL: Soft. Non-tender. Non-distended. No rebound or guarding. No organomegaly. Normoactive bowel sounds. MUSCULOSKELETAL Normal range of motion at all joints. No bony deformities or tenderness. No CVA tenderness. EXTREMITIES: No cyanosis. No clubbing. No edema. No calf tenderness. SKIN: Warm and dry. Normal capillary refill. No rashes. No jaundice. NEUROLOGICAL: Alert, awake, appropriate. Cranial nerves 2-12 intact. No deficits to light touch and temperature in face, upper extremities and lower extremities. No motor deficits in the in face, upper extremities and lower extremities. Normoreflexic in the upper and lower extremities. Normal speech. Toes are down- going bilaterally. PSYCHIATRIC: Cooperative. Good eye contact. Appropriate mood and affect. (Rosio Ambrose) Heart Score/ECG Review <Rosio Ambrose - Last Filed: 05/08/17 01:12> <Inessa Pedraza - Last Filed: 05/08/17 02:14> - ECG Intrepretation Comment:: ECG NSR @ 86 BPM Minimal voltage criteria for LVH, may be normal variant Inferior infarct, age undetermined Abnormal ECG (Rosio Ambrose) ED Treatment Course - LABORATORY CBC & Chemistry Diagram: 05/08/17 00:36 05/08/17 00:36 <Rosio Ambrose - Last Filed: 05/08/17 01:12> - LABORATORY CBC & Chemistry Diagram: 05/08/17 00:36 05/08/17 00:36 <Inessa Pedraza - Last Filed: 05/08/17 02:14> - ADDITIONAL ORDERS Additional order review: Laboratory Results 05/08/17 05/08/17 05/08/17 00:36 00:36 00:36 INR Sodium 139 Potassium 3.9 Chloride 101 Carbon Dioxide 27 Anion Gap 11 BUN 11 Creatinine 0.9 Creat Clearance w eGFR > 60 Random Glucose 194 H Calcium 9.1 Magnesium 2.2 Total Bilirubin 0.4 AST 15 ALT 31 Alkaline Phosphatase 110 Creatine Kinase 287 CK-MB (CK-2) 3.490 CK-MB (CK-2) Rel Index Cancelled Troponin I < 0.02 B-Natriuretic Peptide 22.59 Total Protein 7.6 Albumin 4.0 05/08/17 00:36 INR 0.96 Sodium Potassium Chloride Carbon Dioxide Anion Gap BUN Creatinine Creat Clearance w eGFR Random Glucose Calcium Magnesium Total Bilirubin AST ALT Alkaline Phosphatase Creatine Kinase CK-MB (CK-2) CK-MB (CK-2) Rel Index Troponin I B-Natriuretic Peptide Total Protein Albumin 05/08/17 00:36 RBC 5.48 MCV 78.1 L MCHC 32.3 RDW 14.8 MPV 8.7 Neutrophils % 61.7 Lymphocytes % 26.4 Monocytes % 10.3 H Eosinophils % 1.3 Basophils % 0.3 - RADIOLOGY Radiology Studies Ordered: Category Date Time Status CHEST X-RAY PORTABLE* [RAD] Stat Radiology 05/08/17 00:29 Taken - Medications Given in the ED: ED Medications Discontinued Medications Generic Name Dose Route Start Last Admin Trade Name Freq PRN Reason Stop Dose Admin Aspirin 162 mg 05/08/17 00:28 05/08/17 00:45 Asa - PO 05/08/17 00:29 162 mg ONCE ONE Administration Medical Decision Making <Rosio Ambrose - Last Filed: 05/08/17 01:12> <Inessa Pedraza - Last Filed: 05/08/17 02:14> - Medical Decision Making 05/08/17 01:35 62-year-old male presents to the emergency department because of concerns for chest burning after drinking soup at 6:30 -the burning resolved but he became worried because of h/o CAD -he has a Complex medical history and has had both cardiac issues with placement of cardiac stents and had a stroke this year. He also had a left endarterectomy done in the past several months. social history-retired, never used tobacco ekg is NSR and there is no changes since his ekg since last month plan- repeat cardiac enzymes 5am 05/08/17 02:14 (Inessa Pedraza) *DC/Admit/Observation/Transfer <Rosio Ambrose - Last Filed: 05/08/17 01:12> <Inessa Pedraza - Last Filed: 05/08/17 02:14> - Referrals Referrals: Rigo Carroll [Primary Care Provider] - - Attestations Scribe Attestion: 05/08/17 01:16 Documentation prepared by Rosio Ambrose, acting as emergency medical service coordinator for Inessa Pedraza MD/. (Rosio Ambrose)
[2017-05-08] MEDS ORDERED: ASPIRIN 81 MG CHEWABLE TABLETS ONE (00:38)
[2017-05-08 00:50] LABS: BASOPHIL 0.3 % (0-2.0); EOSINOPHIL 1.3 % (0-4.5); MCH 25.2 pg (25.7-33.7); MCHC 32.3 g/dl (32.0-35.9); MEAN CELL VOLUME 78.1 fl (80-96); MEAN PLT VOLUME 8.7 fl (7.5-11.1); NEUTROPHILS 61.7 % (42.8-82.8); PLATELET COUNT 219 K/MM3 (134-434); RDW 14.8 % (11.9-15.9); WHITE BLOOD COUNT 5.5 K/mm3 (4.0-10.0)
[2017-05-08 01:03] LABS: INR 0.96 (0.82-1.09); PROTHROMBIN TIME (PATIENT) 10.6 SEC (9.98-11.88)
[2017-05-08 01:17] LABS: ANION GAP 11 (8-16); BILIRUBIN,TOTAL 0.4 mg/dL (0.2-1.0); CALCIUM 9.1 mg/dL (8.5-10.1); CO2 27 mmol/L (21-32); COCKROFT - GAULT 106.39; CREATININE 0.9 mg/dL (0.7-1.3); GLUCOSE,RANDOM 194 mg/dL (74-106); MAGNESIUM 2.2 mg/dL (1.8-2.4); SGOT/AST 15 U/L (15-37); SGPT/ALT 31 U/L (12-78); TOT PROT 7.6 g/dl (6.4-8.2)
[2017-05-08 01:20] LABS: ALK PHOS 110 U/L (45-117); TROPONIN I < 0.02 ng/ml (0.00-0.05)
[2017-05-08 04:36] LABS: TROPONIN I < 0.02 ng/ml (0.00-0.05)
--- NOTE | 2017-05-08 04:41 | PDOC ---
*Physical Exam - Vital Signs Last Vital Signs Temp Pulse Resp BP Pulse Ox 97.9 F 83 20 155/87 99 05/08/17 00:06 05/08/17 00:06 05/08/17 00:06 05/08/17 00:06 05/08/17 00:06 ED Treatment Course - LABORATORY CBC & Chemistry Diagram: 05/08/17 00:36 05/08/17 00:36 - ADDITIONAL ORDERS Additional order review: Laboratory Results 05/08/17 05/08/17 05/08/17 04:02 00:36 00:36 INR Sodium Potassium Chloride Carbon Dioxide Anion Gap BUN Creatinine Creat Clearance w eGFR Random Glucose Calcium Magnesium Total Bilirubin AST ALT Alkaline Phosphatase Creatine Kinase 255 CK-MB (CK-2) CK-MB (CK-2) Rel Index Cancelled Troponin I < 0.02 B-Natriuretic Peptide 22.59 Total Protein Albumin 05/08/17 05/08/17 00:36 00:36 INR 0.96 Sodium 139 Potassium 3.9 Chloride 101 Carbon Dioxide 27 Anion Gap 11 BUN 11 Creatinine 0.9 Creat Clearance w eGFR > 60 Random Glucose 194 H Calcium 9.1 Magnesium 2.2 Total Bilirubin 0.4 AST 15 ALT 31 Alkaline Phosphatase 110 Creatine Kinase 287 CK-MB (CK-2) 3.490 CK-MB (CK-2) Rel Index Troponin I < 0.02 B-Natriuretic Peptide Total Protein 7.6 Albumin 4.0 05/08/17 00:36 RBC 5.48 MCV 78.1 L MCHC 32.3 RDW 14.8 MPV 8.7 Neutrophils % 61.7 Lymphocytes % 26.4 Monocytes % 10.3 H Eosinophils % 1.3 Basophils % 0.3 - Medications Given in the ED: ED Medications Discontinued Medications Generic Name Dose Route Start Last Admin Trade Name Freq PRN Reason Stop Dose Admin Aspirin 162 mg 05/08/17 00:28 05/08/17 00:45 Asa - PO 05/08/17 00:29 162 mg ONCE ONE Administration *DC/Admit/Observation/Transfer Diagnosis at time of Disposition: Chest pain Qualifiers: Chest pain type: precordial pain Qualified Code(s): R07.2 - Precordial pain - Discharge Dispostion Disposition: HOME Condition at time of disposition: Stable Admit: No - Referrals Referrals: Rigo Carroll [Primary Care Provider] - Jeff Almaguer MD [Staff Physician] - - Patient Instructions Printed Discharge Instructions: DI for Chest Pain - Post Discharge Activity
[2017-05-08 04:58] VITALS: BP 160/85
--- NOTE | 2017-05-08 12:35 | EKG ---
Test Reason : Blood Pressure : / mmHG Vent. Rate : 086 BPM Atrial Rate : 086 BPM P-R Int : 162 ms QRS Dur : 090 ms QT Int : 348 ms P-R-T Axes : 052 024 003 degrees QTc Int : 416 ms NORMAL SINUS RHYTHM MINIMAL VOLTAGE CRITERIA FOR LVH, MAY BE NORMAL VARIANT INFERIOR INFARCT (CITED ON OR BEFORE 14-FEB-2017) ABNORMAL ECG WHEN COMPARED WITH ECG OF 12-APR-2017 09:14, NO SIGNIFICANT CHANGE WAS FOUND Confirmed by NATA BUTLER MD ([id number]) on 05/08/2017 12:34:48 PM Referred By: Confirmed By:NATA BUTLER MD
--- NOTE | 2017-05-08 12:37 | EKG ---
Test Reason : Blood Pressure : / mmHG Vent. Rate : 078 BPM Atrial Rate : 078 BPM P-R Int : 160 ms QRS Dur : 084 ms QT Int : 358 ms P-R-T Axes : 067 013 011 degrees QTc Int : 408 ms NORMAL SINUS RHYTHM INFERIOR INFARCT (CITED ON OR BEFORE 14-FEB-2017) ABNORMAL ECG WHEN COMPARED WITH ECG OF 08-MAY-2017 00:12, NO SIGNIFICANT CHANGE WAS FOUND Confirmed by NATA BUTLER MD ([id number]) on 05/08/2017 12:36:36 PM Referred By: Confirmed By:NATA BUTLER MD
== END 2017-05-08 05:05 | disposition home or self-care (01) ==
LOC: JER 00:03
DX: R07.2 Precordial pain (principal); I25.10 Atherosclerotic heart disease of native coronary artery without angina pectoris; I10 Essential (primary) hypertension; Z95.5 Presence of coronary angioplasty implant and graft; Z86.73 Personal history of transient ischemic attack (TIA), and cerebral infarction without residual deficits; E11.9 Type 2 diabetes mellitus without complications; Z79.84 Long term (current) use of oral hypoglycemic drugs; E78.00 Pure hypercholesterolemia, unspecified; I25.2 Old myocardial infarction; R94.31 Abnormal electrocardiogram [ECG] [EKG]
CPT/HCPCS: 36415; 71010-TC; 80053; 82550; 82553; 83735; 83880; 84484; 85025; 85610; 93005; 93010; 99283-25

== ENCOUNTER 2017-11-15 08:32 | Emergency (ER) | payer OTHER ==
[2017-11-15 08:53] VITALS: BMI 28.8
--- NOTE | 2017-11-15 09:18 | PDOC ---
History of Present Illness - General Chief Complaint: Blood Pressure Problem Stated Complaint: HYPERTENSION Time Seen by Provider: 11/15/17 08:41 History Source: Patient Exam Limitations: No Limitations - History of Present Illness Initial Comments: This is a 62 YOM with h/o HTN (on metoprolol, irbesartan/HCTZ), NIDDM (on Metformin), CVA in January with subsequent left carotid endarterectomy, and CAD with ID s/p PCI and stenting now on Effient, who presents with high blood pressure measured at home and a concurrent panicky feeling. He awoke this morning and had a subsequent gradual onset of panicky feeling, mild headache, and "just not feeling like myself" so he measured his blood pressure at home, and it was over 200/110. He then took his normal blood pressure medication doses and about 30 minutes later remeasured it to be over 180 systolic. He came to the ED with continued panicky feeling. He denies any chest pain, SOB, numbness, tingling, focal weakness, change in vision, LOC, fever, chills, nausea , vomiting, dysuria, or other symptoms. 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 Past History - Past Medical History Allergies/Adverse Reactions: Allergies Allergy/AdvReac Type Severity Reaction Status Date / Time JESSI Inhibitors Allergy Swelling Verified 11/15/17 08:53 Home Medications: Ambulatory Orders Aspirin [ASA -] 81 mg PO DAILY 02/14/17 Metformin HCl [Glucophage -] 850 mg PO BID 02/14/17 Metoprolol Succinate [Toprol Xl] 100 mg PO DAILY 02/14/17 Exenatide Microspheres [Bydureon] 2 mg SQ Q7D 02/16/17 Irbesartan/Hydrochlorothiazide [Irbesartan-Hctz 300-12.5 mg Tb] 1 each PO DAILY 02/16/17 Omeprazole Magnesium [Prilosec] 10 mg PO DAILY 02/16/17 Prasugrel HCl [Effient] 10 mg PO DAILY 02/16/17 Rosuvastatin [Crestor -] 40 mg PO DAILY 02/24/17 Canagliflozin [Invokana] 100 mg PO ASDIR 05/08/17 Cardiac Disorders: Yes ([place]) CVA: Yes Diabetes: Yes HTN: Yes Hypercholesterolemia: Yes - Surgical History Cardiac Surgery: Yes (carotid & cardiac stent) - Suicide/Smoking/Psychosocial Hx Smoking History: Never smoked Have you smoked in the past 12 months: No Hx Alcohol Use: No Drug/Substance Use Hx: No Substance Use Type: None Review of Systems - Review of Systems Able to Perform ROS?: Yes Constitutional: No: Chills, Fever, Unexplained wgt Loss HEENTM: No: Nose Congestion, Throat Pain Respiratory: No: Cough, Shortness of Breath Cardiac (ROS): No: Chest Pain, Palpitations ABD/GI: No: Constipated, Diarrhea, Nausea, Vomiting : No: Burning, Dysuria Musculoskeletal: No: Back Pain, Neck Pain Integumentary: No: Bruising, Rash Neurological: Yes: Headache. No: Numbness, Tingling, Weakness, Dizziness Psychiatric: Yes: Anxiety Endocrine: No: Unexplained Weight Gain, Unexplained Weight Loss *Physical Exam - Vital Signs Last Vital Signs Temp Pulse Resp BP Pulse Ox 97.5 F L 88 18 169/79 100 11/15/17 08:45 11/15/17 08:45 11/15/17 08:45 11/15/17 08:45 11/15/17 08:45 - Physical Exam General Appearance: Yes: Nourished, Appropriately Dressed, Other (pleasant and intelligent adult male who answers questions appropiately and demonstrates insight into his medical background, laying on hospital bed). No: Apparent Distress HEENT: positive: EOMI, ARASH, Normal ENT Inspection, Normal Voice, Hearing Grossly Normal, Other (well healed scar from left carotid endarterectomy). negative: Scleral Icterus (R), Scleral Icterus (L), Nasal Congestion Neck: positive: Trachea midline, Supple. negative: Tender, Rigid Respiratory/Chest: positive: Lungs Clear, Normal Breath Sounds. negative: Respiratory Distress, Crackles, Rhonchi, Stridor, Wheezing Cardiovascular: positive: Regular Rhythm, Murmur (1/6 systolic ejection murmur LUSB), Tachycardia (mild), Other (right carotid bruit) Gastrointestinal/Abdominal: positive: Normal Bowel Sounds, Soft. negative: Tender, Organomegaly, Pulsatile Mass, Guarding Musculoskeletal: positive: Normal Inspection. negative: Decreased Range of Motion, Vertebral Tenderness Extremity: positive: Normal Capillary Refill, Normal Inspection, Normal Range of Motion. negative: Tender, Cyanosis Integumentary: positive: Normal Color, Dry, Warm. 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 On exam he is hypertensive to 169/79, mildly tachycardic to about 110 on my exam , mildly anxious, systolic ejection murmur, right carotid bruit. DDX IBNLT acute on chronic essential HTN, stress reaction, change in renal function effecting medication clearance, infection, etc. Ordered is CBCD, CMP, cardiac panel, EKG, CXR. 11/15/17 11:42 CBCD unremarkable, CMP with mild alk phos elevation and mild hyperglycemia, CK > 600 but first troponin is negative. Will repeat troponin in about an hour and give the patient 500 cc IVF. The patient states he feels better, pressure has normalized. Will re-assess again after IVF, troponin re-draw results. 11/15/17 14:02 Repeat troponin just resulted <0.02. Repeat CK is 490 which is improved from initial measurement. The patient is re-assessed in person and states symptoms have resolved, BP has improved. The patient is appropriate for discharge home with close OP followup. Return precautions are discussed. *DC/Admit/Observation/Transfer Diagnosis at time of Disposition: Hypertension Qualifiers: Hypertension type: unspecified Qualified Code(s): I10 - Essential (primary) hypertension - Discharge Dispostion Disposition: HOME Condition at time of disposition: Stable Admit: No - Referrals Referrals: STAFF,NOT ON [Primary Care Provider] - - Patient Instructions Printed Discharge Instructions: DI for High Blood Pressure Additional Instructions: You were seen in the ER for high blood pressure and a panicky feeling. We took your blood pressure here several times and it has improved slowly. We also did blood lab work and found a high creatinine kinase level which can sometimes indicate muscle breakdown or heart problems. However, your other heart enzymes were normal. We repeated the heart enzymes after three hours to be sure, and the creatinine kinase improved with the fluids, and the other heart enzymes were normal again. Please follow up with your regular doctor to talk about your blood pressure control. You can always come back to the ER for any new or worsening symptoms like chest pain, severe headache, shortness of breath, blood pressure problems that you cannot control with your home medications, or other symptoms. - Post Discharge Activity
[2017-11-15 10:02] LABS: BASOPHIL 0.3 % (0-2.0); EOSINOPHIL 0.8 % (0-4.5); MCH 25.6 pg (25.7-33.7); MCHC 32.7 g/dl (32.0-35.9); MEAN CELL VOLUME 78.3 fl (80-96); MEAN PLT VOLUME 8.6 fl (7.5-11.1); NEUTROPHILS 62.8 % (42.8-82.8); PLATELET COUNT 210 K/MM3 (134-434); RDW 14.7 % (11.9-15.9); WHITE BLOOD COUNT 5.5 K/mm3 (4.0-10.0)
--- NOTE | 2017-11-15 10:11 | PDOC ---
Attending Attestation - Resident Resident Name: IliaAna - ED Attending Attestation I have performed the following: I have examined & evaluated the patient, The case was reviewed & discussed with the resident, I agree w/resident's findings & plan, Exceptions are as noted - HPI HPI: 11/15/17 10:08 62y M hx of cva on effient, cad s/p pci, htn, hl, sp endaradectomy presents with feeling of mild headache, and just wasnt feeling well in general - he took his bp and noticed it was 200/110, took his morning BP meds, with improvement of his BP to sbp 180s. No cp, sob, palpitations, n/v, abd pain, n/v, numbness/ tngling/weakness, dysuria, uri like sypmtoms, diarrhea, melena. general: well appearing, NAD Cardiac: no m/r/g, rrr Pulm: cta no wheezing extremity: no edema will ck labs to r/o anemia, metablic derngaement consider atypical acs will obtian ekg gissel lreasess - Physicial Exam PE: 11/18/17 18:56 see above - Medical Decision Making labs reviwed pt feeling better trop neg x 2 will dc pt with pmd fu return precautions were discussed Heart Score/ECG Review - ECG Impressions Comment:: 11/15/17 12:11 Twelve-lead EKG was performed and reviewed by me. There is normal sinus rhythm with a normal rate. Q wave and T wave inversion in lead 3 No other signs of acute ischemia
[2017-11-15 10:38] LABS: ANION GAP 8 (8-16); BILIRUBIN,TOTAL 0.7 mg/dL (0.2-1.0); CALCIUM 8.7 mg/dL (8.5-10.1); CO2 28 mmol/L (21-32); CREATININE 0.8 mg/dL (0.7-1.3); GLUCOSE,RANDOM 184 mg/dL (74-106); SGPT/ALT 41 U/L (12-78); TOT PROT 8.2 g/dl (6.4-8.2)
[2017-11-15 10:41] LABS: ALK PHOS 126 U/L (45-117); TROPONIN I < 0.02 ng/ml (0.00-0.05)
[2017-11-15 11:14] LABS: SGOT/AST 33 U/L (15-37)
[2017-11-15 11:15] LABS: CPK 613 IU/L (39-308)
[2017-11-15 11:40] VITALS: TEMP 98.4
[2017-11-15] MEDS ORDERED: SODIUM CHLORIDE 500 ML IV STA (11:44)
[2017-11-15 13:21] LABS: CPK 490 IU/L (39-308); TROPONIN I < 0.02 ng/ml (0.00-0.05)
[2017-11-15 14:32] VITALS: BP 180/90; PULSE 88
--- NOTE | 2017-11-19 01:54 | EKG ---
Test Reason : Blood Pressure : / mmHG Vent. Rate : 083 BPM Atrial Rate : 083 BPM P-R Int : 166 ms QRS Dur : 100 ms QT Int : 360 ms P-R-T Axes : 053 018 014 degrees QTc Int : 423 ms NORMAL SINUS RHYTHM INFERIOR INFARCT (CITED ON OR BEFORE 14-FEB-2017) ABNORMAL ECG WHEN COMPARED WITH ECG OF 08-MAY-2017 04:44, NO SIGNIFICANT CHANGE WAS FOUND Confirmed by MAYELA GONZALES MD ([id number]) on 11/19/2017 1:54:21 AM Referred By: Confirmed By:MAYELA GONZALES MD
== END 2017-11-15 14:33 | disposition home or self-care (01) ==
LOC: JER 08:32
PROC: 3E0337Z Introduction of Electrolytic and Water Balance Substance into Peripheral Vein, Percutaneous Approach (ICD-10-PCS; principal; 2017-11-15)
DX: I10 Essential (primary) hypertension (principal); E11.9 Type 2 diabetes mellitus without complications; Z79.84 Long term (current) use of oral hypoglycemic drugs; I25.2 Old myocardial infarction; I25.10 Atherosclerotic heart disease of native coronary artery without angina pectoris; Z95.5 Presence of coronary angioplasty implant and graft; Z86.73 Personal history of transient ischemic attack (TIA), and cerebral infarction without residual deficits; Z95.828 Presence of other vascular implants and grafts
CPT/HCPCS: 36415; 71020-TC; 80053; 82550; 82553; 84484; 85025; 93005; 93010; 96360; 99284-25

== ENCOUNTER 2017-11-30 21:42 | Observation (INO) | payer OTHER ==
--- NOTE | 2017-11-30 22:14 | PDOC ---
History of Present Illness - General Chief Complaint: Chest Pain Stated Complaint: CHEST PAIN Time Seen by Provider: 11/30/17 21:55 History Source: Patient Exam Limitations: No Limitations - History of Present Illness Initial Comments: 11/30/17 22:17 Patient is a 62M with history of HTN, CAD s/p stents x4, NIDDM, and carotid endarterectomy here today complaining of sudden onset chest pain with associated shortness of breath. He says he measured his heart rate at 150bpm at home. His pain was relieved with rest. He took a nitroglycerin and his chest pain resolved. He currently has no chest pain. He denies history of atrial fibrillation. He says he takes metoprolol for hypertension. He denies leg swelling, history of blood clots. He reports having close follow up, recently had echo but has not received results yet. PCP: Dr Fajardo Past History - Past Medical History Allergies/Adverse Reactions: Allergies Allergy/AdvReac Type Severity Reaction Status Date / Time JESSI Inhibitors Allergy Swelling Verified 11/30/17 21:53 Home Medications: Ambulatory Orders Aspirin [ASA -] 81 mg PO DAILY 02/14/17 Metformin HCl [Glucophage -] 850 mg PO BID 02/14/17 Metoprolol Succinate [Toprol Xl] 100 mg PO DAILY 02/14/17 Exenatide Microspheres [Bydureon] 2 mg SQ Q7D 02/16/17 Irbesartan/Hydrochlorothiazide [Irbesartan-Hctz 300-12.5 mg Tb] 1 each PO DAILY 02/16/17 Prasugrel HCl [Effient] 10 mg PO DAILY 02/16/17 Rosuvastatin [Crestor -] 40 mg PO HS 02/24/17 Canagliflozin [Invokana] 100 mg PO ASDIR 05/08/17 Cardiac Disorders: Yes ([place]) CVA: Yes COPD: No Diabetes: Yes HTN: Yes Hypercholesterolemia: Yes - Surgical History Cardiac Surgery: Yes (carotid & cardiac stent) - Suicide/Smoking/Psychosocial Hx Smoking History: Never smoked Have you smoked in the past 12 months: No Information on smoking cessation initiated: No Hx Alcohol Use: No Drug/Substance Use Hx: No Substance Use Type: None Review of Systems - Review of Systems Comments:: 11/30/17 22:22 GENERAL/CONSTITUTIONAL: No fever or chills. No weakness. HEAD, EYES, EARS, NOSE AND THROAT: No change in vision. No sore throat. CARDIOVASCULAR: Positive for shortness of breath, chest pain. RESPIRATORY: No cough, wheezing, or hemoptysis. GASTROINTESTINAL: No nausea, vomiting, diarrhea or constipation. GENITOURINARY: No dysuria, frequency, or change in urination. SKIN: No rash NEUROLOGIC: No headache, vertigo, loss of consciousness, or change in strength/ sensation. ENDOCRINE: No increased thirst. No abnormal weight change HEMATOLOGIC/LYMPHATIC: Positive for history of anemia. Negative for easy bleeding, or history of blood clots. ALLERGIC/IMMUNOLOGIC: No hives or skin allergy. *Physical Exam - Vital Signs Last Vital Signs Temp Pulse Resp BP Pulse Ox 99 H 14 166/88 100 11/30/17 21:54 11/30/17 21:54 11/30/17 21:54 11/30/17 21:54 - Physical Exam Comments: 11/30/17 22:25 GENERAL: Awake, alert, and fully oriented, in no acute distress HEAD: No signs of trauma, normocephalic, atraumatic EYES: PERRLA, EOMI, sclera anicteric, conjunctiva clear ENT: Auricles normal inspection, hearing grossly normal, nares patent, oropharynx clear without exudates. Moist mucosa NECK: Normal ROM, supple, no lymphadenopathy, JVD, or masses LUNGS: No distress, speaks full sentences, clear to auscultation bilaterally HEART: Regular rate and rhythm, normal S1 and S2, no murmurs, rubs or gallops, peripheral pulses normal and equal bilaterally. EXTREMITIES: Normal inspection, Normal range of motion, no edema. No clubbing or cyanosis. NEUROLOGICAL: Cranial nerves II through XII grossly intact. Normal speech, no focal sensorimotor deficits SKIN: Warm, Dry, normal turgor, no rashes or lesions noted. Heart Score/ECG Review - History History: Highly suspicious - Electrocardiogram EKG: Normal - Age Age: 45-65 - Risk Factors Risk Factors Heart Score: Yes Hx Hypercholesterolemia, Yes Hx Hypertension, Yes Hx Diabetes Based on the list above the patient has:: >/=3 risk factors or Hx atherosclerotic disease - Troponin Troponin: </= normal limit - Score Heart Score - Total: 5 ED Treatment Course - LABORATORY CBC & Chemistry Diagram: 11/30/17 22:10 11/30/17 22:10 - RADIOLOGY Radiology Studies Ordered: Category Date Time Status CHEST PA & LAT [RAD] Stat Radiology 11/30/17 21:56 Ordered Medical Decision Making - Medical Decision Making 11/30/17 22:25 Patient is a 62M with history of HTN, CAD s/p stenting x4, NIDDM, and carotid endarterectomy here today with chest pain. Rapid heart rate not measured by EMS. Chest pain now resolved. Vital signs stable. HR 97 bpm. Differential diagnosis includes, but is not limited to: afib with rvr, vtach, other arrhythmias, acs. Will evaluate with ekg, cardiac labs, cxr. Will treat with aspirin 162 and nitro paste. EKG shows normal sinus rhythm, normal rate, normal axis. Q waves prominent in III, aVF, consistent with EKG from [address] elevations/depressions. No t wave abnormalities. 12/01/17 00:00 Laboratory Tests 11/30/17 11/30/17 22:10 22:10 WBC 5.3 Hgb 14.6 Hct 44.3 Plt Count 206 Anion Gap 8 Random Glucose 316 H* D CK-MB (CK-2) 7.205 H Troponin I < 0.02 CBC normal. Glucose 316, but gap normal. Will give 6U insulin. CK and CK-MB elevated. Trop negative. Will admit to tele obs. 12/01/17 00:11 Dr Scott accepted admission to tele obs. *DC/Admit/Observation/Transfer Diagnosis at time of Disposition: Chest pain - Discharge Dispostion Condition at time of disposition: Stable Admit: Yes - Referrals - Patient Instructions - Post Discharge Activity
[2017-11-30 22:16] LABS: BASO % 0.6 % (0-2.0); EOS % 1.4 % (0-4.5); HEMATOCRIT 44.3 % (35.4-49); HEMOGLOBIN 14.6 GM/dL (11.7-16.9); LYMPH % 32.1 % (8-40); MCH 25.7 pg (25.7-33.7); MEAN CELL VOLUME 77.9 fl (80-96); MEAN PLT VOLUME 8.8 fl (7.5-11.1); MONO % 10.2 % (3.8-10.2); NEUT % 55.7 % (42.8-82.8); PLATELET COUNT 206 K/MM3 (134-434); RBC 5.68 M/mm3 (4.00-5.60); RDW 14.7 % (11.9-15.9); WHITE BLOOD COUNT 5.3 K/mm3 (4.0-10.0)
--- NOTE | 2017-11-30 22:24 | PDOC ---
Attending Attestation - HPI HPI: 11/30/17 22:33 The patient is a 62 year old male, with a significant past medical history of HTN, CAD s/p stents x4, NIDDM, and carotid endarterectomy, who presents to the emergency department with, chest pain and shortness of breath. He reports a at home heart rate of 150 bpm. He reports taking a nitroglycerin, with relief. Documentation prepared by Peggy Barrett, acting as medical sociologist for Emergency Dept,PhysicianMD. <Peggy Barrett - Last Filed: 11/30/17 22:33> - Resident Resident Name: Milo Cardenas - ED Attending Attestation I have performed the following: I have examined & evaluated the patient, The case was reviewed & discussed with the resident, I agree w/resident's findings & plan, Exceptions are as noted - Physicial Exam PE: 12/01/17 00:06 Patient is awake and alert, afebrile, pain free, resting comfortably nc, atr no jvd cta rrr no edema - Medical Decision Making 12/01/17 00:06 Substernal chest discomfort that lasted for several minutes and was relieved by sublingual nitroglycerin with associated palpitations and a noted heart rate of 150. In the ER, patient is awake and alert, mildly hypertensive on initial evaluation, pain free. EKG reveals persistent Q waves in 3 and aVF without evidence of acute ischemia. First set of cardiac enzymes reveals a normal troponin and elevated CPK. Chest x-ray reveals no evidence of cardiomegaly/ infiltrate or effusion. We'll administer aspirin and transdermal nitroglycerin glycerin. Patient's heart score is noted to be 5. Will place on telemetry of his for serial cardiac enzymes. <Lucian Dias - Last Filed: 12/01/17 00:07>
[2017-11-30 22:29] LABS: INR 0.88 (0.82-1.09); PROTHROMBIN TIME (PATIENT) 9.9 SEC (9.98-11.88)
[2017-11-30 22:39] LABS: ALBUMIN 3.8 g/dl (3.4-5.0); ANION GAP 8 (8-16); BILIRUBIN,TOTAL 0.4 mg/dL (0.2-1.0); BLOOD UREA NITROGEN 12 mg/dL (7-18); CALCIUM 8.9 mg/dL (8.5-10.1); CHLORIDE 102 mmol/L (98-107); CO2 28 mmol/L (21-32); CREATININE 1.1 mg/dL (0.7-1.3); MAGNESIUM 2.3 mg/dL (1.8-2.4); POTASSIUM 3.8 mmol/L (3.5-5.1); SGOT/AST 13 U/L (15-37); SGPT/ALT 38 U/L (12-78); SODIUM 138 mmol/L (136-145); TOT PROT 7.6 g/dl (6.4-8.2)
[2017-11-30 22:42] LABS: ALK PHOS 142 U/L (45-117)
[2017-11-30 22:46] LABS: GLUCOSE,RANDOM 316 mg/dL (74-106)
[2017-11-30] MEDS ORDERED: ASPIRIN 81 MG CHEWABLE TABLETS PO ONE (22:58)
[2017-11-30] MEDS ORDERED: NITROGLYCERIN 2% OINTMENT - 1GM PACKET TD ONE ×2 (22:59→23:02)
[2017-11-30] MEDS ORDERED: ASPIRIN 81 MG CHEWABLE TABLETS ONE (23:02)
[2017-12-01] MEDS ORDERED: INSULIN REGULAR HUMAN 100 UNITS/ML *VIAL SQ ONE (00:01)
[2017-12-01] MEDS ORDERED: ONDANSETRON 4 MG/2 ML VIAL IVPB PRN (00:20)
[2017-12-01] MEDS ORDERED: ACETAMINOPHEN 325 MG TABLET (FP) PO PRN (00:20)
[2017-12-01] MEDS ORDERED: NITROGLYCERIN SUBLINGUAL 1/150 0.4 MG TAB SL PRN (00:21)
[2017-12-01] MEDS ORDERED: morphine CARPU-JECT 10 MG/1 ML DISP.SYRIN IVPUSH PRN (00:21)
--- NOTE | 2017-12-01 00:27 | HP ---
Admitting History and Physical - Admission Chief Complaint: cp/sob History of Present Illness: 62M with history of HTN, CAD s/p stents x4, NIDDM, and carotid endarterectomy here today complaining of sudden onset chest pain. he reports sudden onset of non -exertional right sided CP which begn ~915Pm yesterday. He reports he checked his b/p which was low and his HR was ~150. he took 1 NG SL which relieved the discomfort and called Ems. He denies associated syncope (true or near), vomiting, sweating, jaw claudication, numbness, cough, fevers. He denies leg edema, bloody stools/urine, constipation. He had an echo at his [employer] [facility] office 1 week ago but does not know his results. He notes he feels fine now. pmh/psh- HTN, CAD s/p stents x4, NIDDM, and carotid endarterectomy social- denies toxic habits. 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 dad- htn PCP- Rigo Carroll Cards- Dr Rizo Ros neg except for HPI Pex General- alert, in nad Hent- at/nc, niko, neck supple, trachea midline Resp- no cough, no cyanosis, lungs ctab cards- RRR, no JVD, no leg edema, no rubs Gi- non-tender, no guarding, no rebound Psych- cooperative Neuro - cn 2-12 grossly intact Musk- no back pain Skin- no erythema, skin dry Prob list CP HTN DM T2 CAD s/p stents Carotid artery disease s/p endarectomy tachycardia a/p - 62M with history of HTN, CAD s/p stents x4, NIDDM, and carotid endarterectomy here today complaining of sudden onset chest pain 1. CP- No SILVANO/STD. QWave in AVF III, but No change from prior EKG 2 weeks ago. CK elevated, 1st trop negative. CXr appears clear by my eye. Cycle Trop, cardiac tele, cards consult, CATHERINE. 2. Tachycardia- Pt reports HR ~150 in field. ? PAF vs MAT vs V-tach vs other arrhythmia . Check lytes, TSH. Monitor on Tele. Cards consult. 3. HTn- COnt home meds 4. DM T2- SSI, Monitor F/S 5. CAD s/p stents- Cont DAPT 6. Elevated Alk Jin- Normal Bili/ast/alt. Check GGT, Trend labs. DVT prophy SCD, OOB, Hep SQ FEN Heart healthy, ADA Dispo- obs for CP r/o History Source: Patient Limitations to Obtaining History: No Limitations - Smoking History Smoking history: Never smoked Have you smoked in the past 12 months: No - Alcohol/Substance Use Hx Alcohol Use: No Home Medications - Allergies Allergies/Adverse Reactions: Allergies Allergy/AdvReac Type Severity Reaction Status Date / Time JESSI Inhibitors Allergy Swelling Verified 11/30/17 21:53 - Home Medications Home Medications: Ambulatory Orders Aspirin [ASA -] 81 mg PO DAILY 02/14/17 Metformin HCl [Glucophage -] 850 mg PO BID 02/14/17 Metoprolol Succinate [Toprol Xl] 100 mg PO DAILY 02/14/17 Exenatide Microspheres [Bydureon] 2 mg SQ Q7D 02/16/17 Irbesartan/Hydrochlorothiazide [Irbesartan-Hctz 300-12.5 mg Tb] 1 each PO DAILY 02/16/17 Prasugrel HCl [Effient] 10 mg PO DAILY 02/16/17 Rosuvastatin [Crestor -] 40 mg PO HS 02/24/17 Canagliflozin [Invokana] 100 mg PO ASDIR 05/08/17 Physical Examination Vital Signs: Vital Signs Temperature Pulse Rate 84 11/30/17 23:29 Respiratory Rate 20 11/30/17 23:29 Blood Pressure 138/81 11/30/17 23:29 O2 Sat by Pulse Oximetry (%) 100 11/30/17 23:29 Labs: CBC, BMP 11/30/17 22:10 11/30/17 22:10
[2017-12-01] MEDS ORDERED: INSULIN REGULAR HUMAN 100 UNITS/ML *VIAL ONE (01:26)
[2017-12-01 01:51] VITALS: BMI 29.3
[2017-12-01] MEDS ORDERED: PNEUMOC 13-VAL CONJ-DIP CRM/PF 0.5 ML DISP.SYRIN IM ONE (02:12)
[2017-12-01] MEDS: HEPARIN NA (PORCINE) 5,000 UNITS/ML 1ML VIAL SQ SCH ×2 (06:01→13:31)
[2017-12-01] MEDS: INSULIN SLIDING SCALE (NOVOLOG) 1 VIAL SQ SCH ×2 (06:01→12:39)
[2017-12-01 08:28] LABS: BASO % 0.2 % (0-2.0); EOS % 1.2 % (0-4.5); HEMATOCRIT 42.7 % (35.4-49); HEMOGLOBIN 13.9 GM/dL (11.7-16.9); LYMPH % 30.2 % (8-40); MCH 25.2 pg (25.7-33.7); MCHC 32.4 g/dl (32.0-35.9); MEAN CELL VOLUME 77.8 fl (80-96); MEAN PLT VOLUME 8.5 fl (7.5-11.1); MONO % 8.6 % (3.8-10.2); NEUT % 59.8 % (42.8-82.8); PLATELET COUNT 201 K/MM3 (134-434); RBC 5.49 M/mm3 (4.00-5.60); RDW 14.8 % (11.9-15.9); WHITE BLOOD COUNT 5.7 K/mm3 (4.0-10.0)
[2017-12-01] MEDS ORDERED: PNEUMOCOCCAL 23 VACCINE 0.5 ML VIAL IM ONE (09:00)
[2017-12-01 09:12] LABS: ALBUMIN 3.6 g/dl (3.4-5.0); ANION GAP 8 (8-16); BILIRUBIN,TOTAL 0.6 mg/dL (0.2-1.0); BLOOD UREA NITROGEN 12 mg/dL (7-18); CALCIUM 8.6 mg/dL (8.5-10.1); CHLORIDE 103 mmol/L (98-107); CHOLESTEROL 141 mg/dL (50-200); CO2 28 mmol/L (21-32); CREATININE 0.9 mg/dL (0.7-1.3); GLUCOSE,RANDOM 129 mg/dL (74-106); LDL CHOLESTEROL (ONLY SJRH) 90 mg/dL (5-100); MAGNESIUM 2.1 mg/dL (1.8-2.4); PHOSPHOROUS 3.4 mg/dL (2.5-4.9); POTASSIUM 3.7 mmol/L (3.5-5.1); SGOT/AST 13 U/L (15-37); SGPT/ALT 35 U/L (12-78); SODIUM 139 mmol/L (136-145); TRIGLYCERIDES 86 mg/dL (35-160)
[2017-12-01 09:19] LABS: ALK PHOS 115 U/L (45-117); HDL CHOLESTEROL 39 mg/dL (40-60)
--- NOTE | 2017-12-01 09:32 | CON.CARD ---
Consult Consult Specialty:: Cardiology for Dr. Almaguer/Fadai Referred by:: Hospitalist Reason for Consultation:: Chest pain - History of Present Illness Chief Complaint: Chest pain History of Present Illness: 62 year old man with a history of HTN, HLD, DMII, CAD s/p 4 stents in the past last being approximately 4 years ago, Carotid stenosis s/p CEA, followed by senior cytogenetic technologist Dr. Ronnie Rizo, admitted with an episode of chest pain with associated sob and tachycardia. Pt states that he has been feeling well lately, he had a routine echo done in his senior cytogenetic technologist office last saturday but does not know the results, was planning to travel to [facility] this week, yesterday when went outside to his car and when walking back to the house felt sudden onset chest discomfort with associated mild sob. He went inside and checked his BP and HR and found his HR to be 150bpm. He took a SL NTG with resolution of his symptoms after a few minutes then he came to the ED. Pt was seen and examined this am in [facility]. During the exam pt became emotional that he was missing yazidi today and at that point his HR went from 90s to 115bpm with improvement back to 90s once he calmed down. He denies any recent chest pain, sob, or palpitations prior to this and none since admission. currently feeling well and wants to go home. Denies any palpitations, pnd, orthopnea, LE edema. No lightheadedness, dizziness , syncope, or near syncope. - History Source History Provided By: Patient, Medical Record Limitations to Obtaining History: No Limitations - Past Medical History Cardio/Vascular: Yes: CAD, HTN, Hyperlipdemia, [place] - Past Surgical History Past Surgical History: Yes: Stent - Alcohol/Substance Use Hx Alcohol Use: No - Smoking History Smoking history: Never smoked Have you smoked in the past 12 months: No - Social History Usual Living Arrangement: With Spouse ADL: Independent History of Recent Travel: No Home Medications - Allergies Allergies/Adverse Reactions: Allergies Allergy/AdvReac Type Severity Reaction Status Date / Time JESSI Inhibitors Allergy Swelling Verified 11/30/17 21:53 - Home Medications Home Medications: Ambulatory Orders Aspirin [ASA -] 81 mg PO DAILY 02/14/17 Metformin HCl [Glucophage -] 850 mg PO BID 02/14/17 Metoprolol Succinate [Toprol Xl] 100 mg PO DAILY 02/14/17 Exenatide Microspheres [Bydureon] 2 mg SQ Q7D 02/16/17 Irbesartan/Hydrochlorothiazide [Irbesartan-Hctz 300-12.5 mg Tb] 1 each PO DAILY 02/16/17 Prasugrel HCl [Effient] 10 mg PO DAILY 02/16/17 Rosuvastatin [Crestor -] 40 mg PO HS 02/24/17 Canagliflozin [Invokana] 100 mg PO ASDIR 05/08/17 Family Disease History - Family Disease History Family History: Denies Review of Systems - Review of Systems Constitutional: denies: No Symptoms, Chills, Diaphoresis, Fever, Lethargy, Loss of Appetite, Malaise, Night Sweats, Unintentional Wgt. Loss, Weakness, Other Eyes: denies: No Symptoms, Blind Spots, Blurred Vision, Double Vision, Eye Pain , Floaters, Photophobia, Recent Change in Vision, Other HENT: denies: No Symptoms, Difficult Swallowing, Ear Discharge, Ear Pain, Epistaxis, Gingival Bleeding, Hearing Loss, Mouth Swelling, Nasal Congestion, Ocular Prosthesis, Throat Pain, Toothache, Ringing in Ears, Other Neck: denies: No Symptoms, Decreased ROM, Lumps, Pain on Movement, Stiffness, Swollen Glands, Tenderness, Other Cardiovascular: reports: Chest Pain, Shortness of Breath. denies: No Symptoms, Edema, Palpitations, Other Respiratory: reports: SOB. denies: No Symptoms, Cough, Exercise Intolerance, Hemoptysis, Orthopnea, PND, Snoring, SOB on Exertion, Wheezing, Other Gastrointestinal: denies: No Symptoms, Abdominal Pain, Bloating, Constipation, Diarrhea, Dysphagia, Indigestion, Melena, Nausea, Rectal Bleeding, Vomiting, Vomiting Blood, Other Genitourinary: denies: No Symptoms, Burning, Discharge, Dysuria, Flank Pain, Frequency, Hematuria, Incontinence, Lesions, Menses, Pain, Testicular Mass, Testicular Pain, Testicular Swelling, Urgency, Vaginal Bleeding, Other Breasts: denies: No Symptoms Reported, See HPI, Breast Implants, Discharge from Nipple, Lumps, Pain, Skin Changes, Other Musculoskeletal: denies: No Symptoms, Back Pain, Crepitus, Decreased ROM, Extremity Pain, Joint Pain, Joint Swelling, Muscle Pain, Muscle Cramps, Muscle Weakness, Other Integumentary: denies: No Symptoms, Blister, Bruising, Change in Color, Eczema, Erythema, Incision, Lesions, Lump, Pallor, Pruritis, Rash, Wound, Other Neurological: denies: No Symptoms, Change in LOC, Change in Speech, Confusion, Dizziness, Headache, Incoordination, Numbness, Parasthesia, Pre-Existing Deficit , Seizure, Syncope, Tremors, Unsteady Gait, Weakness, Other Endocrine: denies: No Symptoms, Excessive Sweating, Flushing, Increased Hunger, Increased Thirst, Intolerance to Cold, Intolerance to Heat, Unexplained Weight Gain, Unexplained Weight Loss, Other Hematology/Lymphatic: denies: No Symptoms, Easily Bruised, Excessive Bleeding, Swollen Glands, Other Psychiatric: denies: No Symptoms, Altered Sleep Pattern, Anxiety, Depression, Hallucinations, Panic, Paranoia, Suicidal, Other - Risk Factors Known Risk Factors: Yes: Diabetes Mellitus, Hypercholesterolemia, Hypertension, Prior [place] /Emb Stroke Vital Signs: Vital Signs Temperature 98.0 F 12/01/17 06:00 Pulse Rate 68 12/01/17 06:00 Respiratory Rate 20 12/01/17 06:00 Blood Pressure 154/78 12/01/17 06:00 O2 Sat by Pulse Oximetry (%) 98 12/01/17 01:54 Constitutional: Yes: Well Nourished, No Distress, Anxious Eyes: Yes: WNL, Conjunctiva Clear, EOM Intact, PERRL HENT: Yes: WNL, Atraumatic, Normocephalic Neck: Yes: WNL, Supple, Trachea Midline Respiratory: Yes: WNL, Regular, CTA Bilaterally. No: Rales, Rhonchi, Wheezes Gastrointestinal: Yes: WNL, Normal Bowel Sounds, Soft. No: Distention, Tenderness Renal/: Yes: WNL Cardiovascular: Yes: Regular Rate and Rhythm, Tachycardia (became sinus tach during exam). No: Bradycardia, Pulse Irregular, Gallop, Rub, Varicosities JVD: No Carotid Bruit: No PMI: Non-Displaced Heart Sounds: Yes: S1, S2. No: Split S2, S3, S4, Clicks, Gallop, Rub, Bruit Murmur: No: Systolic Murmur, Diastolic Murmur Musculoskeletal: Yes: WNL Extremities: Yes: WNL Edema: No Peripheral Pulses WNL: Yes Peripheral Pulses: 2+ Left Doralis Pedis, 2+ Right Dorsalis Pedis Integumentary: Yes: WNL Neurological: Yes: WNL, Alert, Oriented, Cran Nerves II-XII Intact ...Motor Strength: WNL Psychiatric: Yes: WNL, Alert, Oriented - Other Data Labs, Other Data: CBC, BMP 12/01/17 08:00 12/01/17 08:00 INR, PTT INR 0.88 (0.82-1.09) 11/30/17 22:10 Troponin, BNP 11/30/17 12/01/17 12/01/17 22:10 08:00 08:00 Troponin I < 0.02 < 0.02 Cancelled Troponin, BNP 11/30/17 12/01/17 12/01/17 22:10 08:00 08:00 Troponin I < 0.02 < 0.02 Cancelled ekg-NSR 97bpm, inferior infarct, no significant acute ST changes Echo: Pending Prior Cardiac Procedures: PTCA with Stent Imaging - Results Chest X-ray: Report Reviewed, Image Reviewed EKG: Report Reviewed, Image Reviewed Other: Report Reviewed, Image Reviewed (tele-nsr, sinus tach, no sig arrhythmias ) Assessment/Plan 62 year old man with a history of HTN, HLD, DMII, CAD s/p 4 stents in the past last being approximately 4 years ago, Carotid stenosis s/p CEA, followed by senior cytogenetic technologist Dr. Ronnie Rizo, admitted with an episode of chest pain with associated sob and tachycardia. Pt states that he has been feeling well lately, he had a routine echo done in his senior cytogenetic technologist office last saturday but does not know the results, was planning to travel to [facility] this week, yesterday when went outside to his car and when walking back to the house felt sudden onset chest discomfort with associated mild sob. He went inside and checked his BP and HR and found his HR to be 150bpm. He took a SL NTG with resolution of his symptoms after a few minutes then he came to the ED. Pt was seen and examined this am in [facility]. During the exam pt became emotional that he was missing yazidi today and at that point his HR went from 90s to 115bpm with improvement back to 90s once he calmed down. He denies any recent chest pain, sob, or palpitations prior to this and none since admission. currently feeling well and wants to go home. Denies any palpitations, pnd, orthopnea, LE edema. No lightheadedness, dizziness , syncope, or near syncope. 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 Ronnie Rizo this and will not travel to the [facility] until his work up is complete -echo was done outpatient last week, to be followed up with pts senior cytogenetic technologist -cont ASA, Effient, crestor, toprol Tachycardia-episodes of sinus tach that seem to correlate with anxiousness, witnessed on exam as above -no sig arrhythmias on telemetry HTN-above goal currently, may also be due to anxiousness -cont home medical regimen for now and adjust as needed with close outpatient f/ up HLD -cont statin DMII -HgbA1C above goal -outpatient f/up
[2017-12-01] MEDS ORDERED: PRASUGREL HCL 10 MG TAB PO SCH (10:00)
[2017-12-01] MEDS ORDERED: ASPIRIN 81 MG CHEWABLE TABLETS PO SCH (10:00)
[2017-12-01] MEDS ORDERED: HYDROCHLOROTHIAZIDE 12.5 MG CAPSULE (FP) PO SCH (10:00)
[2017-12-01] MEDS ORDERED: LOSARTAN POTASSIUM 100 MG TABLET PO SCH (10:00)
[2017-12-01] MEDS ORDERED: METOPROLOL SUCCINATE 100 MG TAB.SR.24H (FP) PO SCH (10:00)
[2017-12-01 10:02] VITALS: TEMP 98
--- NOTE | 2017-12-01 10:28 | EKG ---
Test Reason : Blood Pressure : / mmHG Vent. Rate : 097 BPM Atrial Rate : 097 BPM P-R Int : 150 ms QRS Dur : 086 ms QT Int : 348 ms P-R-T Axes : 046 024 009 degrees QTc Int : 441 ms NORMAL SINUS RHYTHM INFERIOR INFARCT (CITED ON OR BEFORE 14-FEB-2017) ABNORMAL ECG WHEN COMPARED WITH ECG OF 15-NOV-2017 09:10, NO SIGNIFICANT CHANGE WAS FOUND BASELINE ARTIFACT Confirmed by ORVILLE IBANEZ MD ([id number]) on 12/01/2017 10:27:54 AM Referred By: Confirmed By:ORVILLE IBANEZ MD
[2017-12-01] MEDS ORDERED: HYDROCHLOROTHIAZIDE 25 MG TABLET (FP) PO ONE (12:38)
[2017-12-01] MEDS ORDERED: ALPRAZolam 0.25 MG TABLET PO ONE (13:36)
[2017-12-01 15:05] VITALS: BP 164/87; PULSE 74
--- NOTE | 2017-12-01 15:05 | DS ---
Physical Exam: SUBJECTIVE: Patient seen and examined OBJECTIVE: Vital Signs Period Temp Pulse Resp BP Sys/Armijo Pulse Ox Last 24 Hr 98 F-98.8 F 68-99 14-20 130-167/74-96 96-100 PHYSICAL EXAM GENERAL: The patient is awake, alert, and fully oriented, in no acute distress. HEAD: Normal with no signs of trauma. EYES: PERRL, extraocular movements intact, sclera anicteric, conjunctiva clear. ENT: Ears normal, nares patent, oropharynx clear without exudates, moist mucous membranes. NECK: Trachea midline, full range of motion, supple. LUNGS: Breath sounds equal, clear to auscultation bilaterally, no wheezes, no crackles, no accessory muscle use. HEART: Regular rate and rhythm, S1, S2 without murmur, rub or gallop. ABDOMEN: Soft, nontender, nondistended, normoactive bowel sounds, no guarding, no rebound, no hepatosplenomegaly, no masses. EXTREMITIES: 2+ pulses, warm, well-perfused, no edema. NEUROLOGICAL: Cranial nerves II through XII grossly intact. Normal speech, gait not observed. PSYCH: Normal mood, normal affect. SKIN: Warm, dry, normal turgor, no rashes or lesions noted. LABS Laboratory Results - last 24 hr 11/30/17 11/30/17 11/30/17 22:10 22:10 22:10 WBC 5.3 RBC 5.68 H Hgb 14.6 Hct 44.3 MCV 77.9 L MCH 25.7 MCHC 33.0 RDW 14.7 Plt Count 206 MPV 8.8 Neutrophils % 55.7 Lymphocytes % 32.1 Monocytes % 10.2 Eosinophils % 1.4 Basophils % 0.6 PT with INR 9.90 L INR 0.88 Sodium 138 Potassium 3.8 Chloride 102 Carbon Dioxide 28 Anion Gap 8 BUN 12 Creatinine 1.1 D Creat Clearance w eGFR > 60 POC Glucometer Random Glucose 316 H* D Hemoglobin A1c % Calcium 8.9 Phosphorus Magnesium 2.3 Total Bilirubin 0.4 D AST 13 L D ALT 38 Alkaline Phosphatase 142 H Creatine Kinase 602 H Creatine Kinase Index 1.1 CK-MB (CK-2) 7.205 H Troponin I < 0.02 Total Protein 7.6 Albumin 3.8 Triglycerides Cholesterol Total LDL Cholesterol HDL Cholesterol TSH 2.23 D 12/01/17 12/01/17 12/01/17 05:56 08:00 08:00 WBC 5.7 RBC 5.49 Hgb 13.9 Hct 42.7 MCV 77.8 L MCH 25.2 L MCHC 32.4 RDW 14.8 Plt Count 201 MPV 8.5 Neutrophils % 59.8 Lymphocytes % 30.2 Monocytes % 8.6 Eosinophils % 1.2 Basophils % 0.2 PT with INR INR Sodium 139 Potassium 3.7 Chloride 103 Carbon Dioxide 28 Anion Gap 8 BUN 12 Creatinine 0.9 Creat Clearance w eGFR > 60 POC Glucometer 138 Random Glucose 129 H D Hemoglobin A1c % Calcium 8.6 Phosphorus 3.4 Magnesium 2.1 Total Bilirubin 0.6 D AST 13 L ALT 35 Alkaline Phosphatase 115 Creatine Kinase 433 H Creatine Kinase Index 1.1 CK-MB (CK-2) 4.773 H Troponin I < 0.02 Total Protein 7.0 Albumin 3.6 Triglycerides 86 Cholesterol 141 Total LDL Cholesterol 90 HDL Cholesterol 39 L TSH 1.12 D 12/01/17 12/01/17 12/01/17 08:00 08:51 08:51 WBC RBC Hgb Hct MCV MCH MCHC RDW Plt Count MPV Neutrophils % Lymphocytes % Monocytes % Eosinophils % Basophils % PT with INR INR Sodium Potassium Chloride Carbon Dioxide Anion Gap BUN Creatinine Creat Clearance w eGFR POC Glucometer Random Glucose Hemoglobin A1c % 8.7 H Calcium Phosphorus Magnesium Total Bilirubin AST ALT Alkaline Phosphatase Creatine Kinase Cancelled Creatine Kinase Index CK-MB (CK-2) Troponin I Cancelled Total Protein Albumin Triglycerides Cancelled Cholesterol Cancelled Total LDL Cholesterol Cancelled HDL Cholesterol Cancelled TSH HOSPITAL COURSE: Date of Admission:12/01/17 Date of Discharge: 12/01/17 Discharge Summary Reason For Visit: CHEST PAIN Current Active Problems Chest pain (Acute) Condition: Improved - Instructions Disposition: HOME - Home Medications Comprehensive Discharge Medication List: Ambulatory Orders Aspirin [ASA -] 81 mg PO DAILY 02/14/17 Metformin HCl [Glucophage -] 850 mg PO BID 02/14/17 Metoprolol Succinate [Toprol Xl] 100 mg PO DAILY 02/14/17 Exenatide Microspheres [Bydureon] 2 mg SQ Q7D 02/16/17 Irbesartan/Hydrochlorothiazide [Irbesartan-Hctz 300-12.5 mg Tb] 1 each PO DAILY 02/16/17 Prasugrel HCl [Effient] 10 mg PO DAILY 02/16/17 Rosuvastatin [Crestor -] 40 mg PO HS 02/24/17 Canagliflozin [Invokana] 100 mg PO ASDIR 05/08/17 Alprazolam [Xanax] 0.25 mg PO DAILY PRN 12/01/17
[2017-12-01] MEDS ORDERED: ROSUVASTATIN CA 20 MG TABLET (FP) PO SCH (22:00)
== END 2017-12-01 16:14 | disposition home or self-care (01) ==
LOC: JER 21:42 → JERBED 12-01 00:12 → J4W 12-01 05:38 → J2W 12-01 07:16
PROVIDERS: ADMIT Internal Medicine; ATTEND Nurse Practitioner Family
PROC: 3E013VG Introduction of Insulin into Subcutaneous Tissue, Percutaneous Approach (ICD-10-PCS; principal; 2017-12-01)
PROC: 3E013GC Introduction of Other Therapeutic Substance into Subcutaneous Tissue, Percutaneous Approach (ICD-10-PCS; 2017-12-01)
DX: R07.9 Chest pain, unspecified (principal); I10 Essential (primary) hypertension; I25.10 Atherosclerotic heart disease of native coronary artery without angina pectoris; I25.2 Old myocardial infarction; Z88.8 Allergy status to other drugs, medicaments and biological substances; E11.9 Type 2 diabetes mellitus without complications; E78.5 Hyperlipidemia, unspecified; R00.0 Tachycardia, unspecified; R74.8 Abnormal levels of other serum enzymes; Z79.82 Long term (current) use of aspirin; Z79.84 Long term (current) use of oral hypoglycemic drugs; Z86.79 Personal history of other diseases of the circulatory system; Z98.890 Other specified postprocedural states
CPT/HCPCS: 36415; 71020-TC; 80053; 80061; 82550; 82553; 83036; 83721; 83735; 84100; 84443; 84484; 85025; 85610; 93005; 93010; 96372; 99285-25; G0378; J1644

== ENCOUNTER 2018-02-03 17:58 | Emergency (ER) | payer OTHER ==
[2018-02-03 18:06] VITALS: BMI 30.7
--- NOTE | 2018-02-03 18:09 | PDOC ---
History of Present Illness - General Chief Complaint: Blood Pressure Problem Stated Complaint: Blood Sugar Problem Time Seen by Provider: 02/03/18 18:08 History Source: Patient - History of Present Illness Initial Comments: 02/03/18 18:18 62 y.o. male with a PMH of CAD (s/p cardiac stents + carotid endarterectomy), HTN, CVA (w/no residual deficits), NIDDM and vertigo BIBEMS today c/o 2 day h/o vertigo and blurry vision. Patient denies any chest pain, shortness of breath and notes recent medication changes including starting Meclizine 2 days previous. Patient notes the Meclizine did not relieve his symptoms. Patient notes he measures his BP at home and his a.m. SBP is usually in 130's-140's, however today his SBP was 160's. Allergy: JESSI/ARBS Surgical: Cardiac stent, Carotid endarectomy PMD: Bryan Gandhi Past History - Past Medical History Allergies/Adverse Reactions: Allergies Allergy/AdvReac Type Severity Reaction Status Date / Time JESSI Inhibitors Allergy Swelling Verified 02/03/18 18:02 Home Medications: Ambulatory Orders Aspirin [ASA -] 81 mg PO DAILY 02/14/17 Metoprolol Succinate [Toprol Xl] 100 mg PO DAILY 02/14/17 metFORMIN HCL [Glucophage -] 850 mg PO BID 02/14/17 Exenatide Microspheres [Bydureon] 2 mg SQ TH 02/16/17 Irbesartan/Hydrochlorothiazide [Irbesartan-Hctz 300-12.5 mg Tb] 1 each PO DAILY 02/16/17 Rosuvastatin [Crestor -] 40 mg PO HS 02/24/17 Canagliflozin [Invokana] 100 mg PO DAILY 05/08/17 Alprazolam [Xanax] 0.5 mg PO Q6H PRN 12/01/17 Amlodipine Besylate [Norvasc -] 10 mg PO DAILY 02/03/18 Meclizine HCl [Bonine] 25 mg PO Q6H PRN 02/03/18 Cardiac Disorders: Yes ([place]) CVA: Yes COPD: No Diabetes: Yes HTN: Yes Hypercholesterolemia: Yes - Surgical History Cardiac Surgery: Yes (carotid & cardiac stent) - Suicide/Smoking/Psychosocial Hx Smoking History: Never smoked Have you smoked in the past 12 months: No Information on smoking cessation initiated: No Hx Alcohol Use: No Drug/Substance Use Hx: No Substance Use Type: None Hx Substance Use Treatment: No Review of Systems - Review of Systems Constitutional: No: Chills, Fever HEENTM: Yes: Blurred Vision. No: Double Vision Respiratory: No: Cough, Orthopnea, Shortness of Breath, SOB with Exertion, SOB at Rest, Stridor, Wheezing, Hemoptysis Cardiac (ROS): No: Chest Pain, Lightheadedness, Palpitations, Syncope, Chest Tightness ABD/GI: No: Constipated, Diarrhea, Nausea, Vomiting : No: Burning, Dysuria All Other Systems: Reviewed and Negative *Physical Exam - Vital Signs Last Vital Signs Temp Pulse Resp BP Pulse Ox 98 F 87 20 173/72 97 02/03/18 18:02 02/03/18 18:02 02/03/18 18:02 02/03/18 18:02 02/03/18 18:02 - Physical Exam Comments: 02/03/18 18:53 GENERAL: Awake, no acute distress, obese HEAD: No signs of trauma EYES: PERRLA, EOMI, sclera anicteric, conjunctiva clear NECK: Normal ROM, supple, no lymphadenopathy, JVD, or masses LUNGS: Breath sounds equal, clear to auscultation bilaterally. No wheezes, and no crackles HEART: Regular rate and rhythm, normal S1 and S2, no murmurs, rubs or gallops ABDOMEN: Soft, nontender, normoactive bowel sounds. No guarding, no rebound. No masses EXTREMITIES: Normal range of motion, no edema. No clubbing or cyanosis. No cords, erythema, or tenderness. 2+ peripheral pulses NEUROLOGICAL: slurred speech, cranial nerves grossly intact SKIN: Warm, Dry, normal turgor, no rashes or lesions noted. ED Treatment Course - LABORATORY CBC & Chemistry Diagram: 02/03/18 18:34 02/03/18 18:34 Medical Decision Making - Medical Decision Making 02/03/18 18:55 62 y.o. male presents with hypertensive crisis (SBP 170's-180's + blurry vision + vertigo). 2.[address] scan head for new onset vertigo - chantale in light of patient's h/o CVA. Will monitor BP closely in ED. 02/03/18 20:58 Repeat BP 120/73. Head CT negative. Patient c/o vertigo and early onset of headache. Will give headache cocktail and reasess. 02/03/18 20:59 Patient symptomatically improved. Visual acuity 20/20 B/L. As patient has had SBP's 120's-140's following initial intervention, patient safe for discharge close outpatient follow-up. Will send patient home with return precautions and instruction to f/u with opthamology and PMD in the next 24 hours. The latter for evaluation of anti-hypertensive and anti-glycemic medications. 02/04/18 11:25 *DC/Admit/Observation/Transfer Diagnosis at time of Disposition: High blood pressure, Elevated blood pressure reading with diagnosis of hypertension - Discharge Dispostion Disposition: HOME Condition at time of disposition: Good Admit: No - Referrals Referrals: Rigo Carroll [Primary Care Provider] - Katlyn Padilla MD [Staff Physician] - - Patient Instructions Printed Discharge Instructions: DI for High Blood Pressure, How to Monitor Your Blood Pressure at Home Additional Instructions: Please make follow-up appointments with your PMD and product merchandiser within 24 hours. Please also make an appointment with an director drug safety in the next 24 hours -- a referral has been provided should you are not able to make an appointment with the director drug safety who evaluated you previously.. Return to the Emergency Department for any new/worsening/concerning symptoms. - Post Discharge Activity
[2018-02-03] MEDS ORDERED: amLODIPine BESYLATE 2.5 MG TABLET (FP) PO ONE (18:27)
[2018-02-03] MEDS ORDERED: amLODIPine BESYLATE 5 MG TABLET (FP) ONE (18:39)
[2018-02-03 18:57] LABS: BASO % 0.5 % (0-2.0); EOS % 0.9 % (0-4.5); HEMATOCRIT 42.4 % (35.4-49); HEMOGLOBIN 14.5 GM/dL (11.7-16.9); LYMPH % 22.2 % (8-40); MCH 26.7 pg (25.7-33.7); MCHC 34.2 g/dl (32.0-35.9); MEAN CELL VOLUME 77.9 fl (80-96); MEAN PLT VOLUME 8.9 fl (7.5-11.1); MONO % 8.4 % (3.8-10.2); PLATELET COUNT 224 K/MM3 (134-434); RBC 5.44 M/mm3 (4.00-5.60); RDW 14.4 % (11.9-15.9); WHITE BLOOD COUNT 7.7 K/mm3 (4.0-10.0)
[2018-02-03 19:47] LABS: ANION GAP 8 (8-16); BILIRUBIN,TOTAL 0.4 mg/dL (0.2-1.0); BLOOD UREA NITROGEN 13 mg/dL (7-18); CALCIUM 8.7 mg/dL (8.5-10.1); CHLORIDE 98 mmol/L (98-107); CO2 30 mmol/L (21-32); GLUCOSE,RANDOM 227 mg/dL (74-106); POTASSIUM 3.4 mmol/L (3.5-5.1); SGOT/AST 13 U/L (15-37); SGPT/ALT 38 U/L (12-78); SODIUM 136 mmol/L (136-145); TOT PROT 7.6 g/dl (6.4-8.2)
[2018-02-03 19:49] LABS: ALK PHOS 112 U/L (45-117); N-TERMINAL BNP 17.47 pg/ml (5-125)
--- NOTE | 2018-02-03 20:16 | PDOC ---
Attending Attestation - Resident Resident Name: Soni Medelica - ED Attending Attestation I have performed the following: I have examined & evaluated the patient, The case was reviewed & discussed with the resident, I agree w/resident's findings & plan, Exceptions are as noted - HPI HPI: 02/03/18 20:15 62 yo male who recently changed hi sBP meds is now experiencing lightheadedness - Physicial Exam PE: 02/03/18 21:53 Well-nourished, well-developed 62-year-old male in no acute distress. Head normocephalic/atraumatic. Eyes EOMI,niko Neck is supple,no jvd Lungs are clear to auscultation. cvs regular rate and rhythm S1, S2 Protuberant abdomen is negative and no rebound or guarding. Extremities no erythema, no edema. Neuro alert and oriented 3, ambulatory, no ataxia, no gross focal neural deficits skin warm and dry psych appropriate - Medical Decision Making 02/03/18 21:52 62-year-old male with history of hypertension. 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 Presents because of dizziness, lightheadedness and some blurry vision that he's had for a week. He has seen his pulp plant supervisor today, but instead came here. He does have an aircraft dispatcher that he saw last year that he make an appointment to see in follow-up. He does complain of some floaters. On visual acuity is within normal limits. No gross focal neural deficits. CAT scan of the head no acute intracranial pathology Blood pressure came down to normal limits and he'll be discharged to follow-up with his pulp plant supervisor and aircraft dispatcher
[2018-02-03] MEDS ORDERED: METOCLOPRAMIDE HCL INJECTION 10 MG/2 ML VIAL IVPUSH ONE (20:56)
[2018-02-03] MEDS ORDERED: KETOROLAC TROMETHAMINE 15 MG/ML VIAL IVPUSH ONE (20:57)
[2018-02-03] MEDS ORDERED: MECLIZINE HCL 25 MG TABLET (FP) PO ONE (20:59)
[2018-02-03] MEDS ORDERED: KETOROLAC TROMETHAMINE 15 MG/ML VIAL ONE (21:00)
[2018-02-03] MEDS ORDERED: METOCLOPRAMIDE HCL INJECTION 10 MG/2 ML VIAL ONE (21:00)
[2018-02-03] MEDS ORDERED: MECLIZINE HCL 25 MG TABLET (FP) ONE (21:00)
[2018-02-03] MEDS ORDERED: POTASSIUM CHLORIDE TABS 20 MEQ TABLET.ER (FP) PO ONE (21:46)
[2018-02-03 22:23] VITALS: BP 148/78; PULSE 84; TEMP 98
--- NOTE | 2018-02-04 14:20 | EKG ---
Test Reason : Blood Pressure : / mmHG Vent. Rate : 088 BPM Atrial Rate : 088 BPM P-R Int : 166 ms QRS Dur : 090 ms QT Int : 364 ms P-R-T Axes : 048 032 017 degrees QTc Int : 440 ms NORMAL SINUS RHYTHM INFERIOR INFARCT (CITED ON OR BEFORE 14-FEB-2017) ABNORMAL ECG WHEN COMPARED WITH ECG OF 30-NOV-2017 22:17, NO SIGNIFICANT CHANGE WAS FOUND Confirmed by MD Sana, Tani ([id number]) on 02/04/2018 2:19:51 PM Referred By: Confirmed By:Tani Hood MD
== END 2018-02-03 22:23 | disposition home or self-care (01) ==
LOC: JER 17:58
PROC: 3E0333Z Introduction of Anti-inflammatory into Peripheral Vein, Percutaneous Approach (ICD-10-PCS; principal; 2018-02-03)
PROC: 3E033GC Introduction of Other Therapeutic Substance into Peripheral Vein, Percutaneous Approach (ICD-10-PCS; 2018-02-03)
DX: I16.9 Hypertensive crisis, unspecified (principal); I10 Essential (primary) hypertension; I25.10 Atherosclerotic heart disease of native coronary artery without angina pectoris; I25.2 Old myocardial infarction; E11.9 Type 2 diabetes mellitus without complications; E78.00 Pure hypercholesterolemia, unspecified; Z79.84 Long term (current) use of oral hypoglycemic drugs; Z95.5 Presence of coronary angioplasty implant and graft; Z86.73 Personal history of transient ischemic attack (TIA), and cerebral infarction without residual deficits; Z79.82 Long term (current) use of aspirin
CPT/HCPCS: 36415; 70450-TC; 80053; 83880; 84484; 85025; 93005; 93010; 99284-25

== ENCOUNTER 2019-10-17 22:59 | Emergency (ER) | payer OTHER ==
[2019-10-17 23:06] VITALS: BP 170/77; PULSE 95; TEMP 98.1; BMI 30.7
--- NOTE | 2019-10-17 23:13 | PDOC ---
*Physical Exam - Vital Signs Last Vital Signs Temp Pulse Resp BP Pulse Ox 98.1 F 95 H 18 170/77 99 10/17/19 23:03 10/17/19 23:03 10/17/19 23:03 10/17/19 23:03 10/17/19 23:03 Medical Decision Making - Medical Decision Making 10/17/19 23:13 Patient seen by the advanced practice provider under my direct supervision. Ancillary testing reviewed as necessary. I agree with plan as outlined by the advanced practice provider. Discharge - Discharge Information Problems reviewed: Yes Clinical Impression/Diagnosis: Toothache Condition: Stable Disposition: HOME - Additional Discharge Information Prescriptions: Oxycodone HCl/Acetaminophen [Percocet 5-325 mg Tablet] 1 tab PO Q6H PRN #5 tablet MDD 4 PRN Reason: Severe Pain - Follow up/Referral Referrals: Rigo Carroll [Primary Care Provider] - - Patient Discharge Instructions Patient Printed Discharge Instructions: DI for Dental Pain Additional Instructions: Rest, drink lots of fluids: Teas, water, soups Saltwater gargles/ keep mouth clean and rinse after each meal May use wet teabag for pain relief to area Avoid hard chewing foods, stick to ice cream, Jell-O, yogurt etc. Tylenol or Motrin for fever and pain Take Percocet 1 tablet every 6 hours as needed for pain. Complete all medication as prescribed Followup with your dentist in one to 2 days as needed Return to emergency department for worsened symptoms, fevers, swelling to face or worsened pain - Post Discharge Activity
--- NOTE | 2019-10-18 | PDOC ---
History of Present Illness - General Chief Complaint: Toothache Stated Complaint: TOOTHACHE Time Seen by Provider: 10/17/19 23:12 History Source: Patient, Old Records Exam Limitations: No Limitations - History of Present Illness Initial Comments: 10/18/19 00:01 HISTORY OF PRESENT ILLNESS: This is 64-year-old male presents to the emergency department for evaluation of dental pain status post root canal. Patient was seen and evaluated by his dentist Saturday morning he was noted to have dental pain requiring a root canal. Procedure was performed and patient was placed on clindamycin for continued treatment. Patient was advised to return to his dentist Saturday if he was having pain. The patient woke up he was not having any pain and did not seek out care. Patient reported the pain came the afternoon after the dentist had closed. He denies any fevers, chills, difficulty swallowing, drooling, facial swelling or shortness of breath. No recent travel or sick contacts. PAST MEDICAL HISTORY: [place], CVA, carotid endarterectomy SURGICAL HISTORY: Denies ALLERGIES: JESSI inhibitors REVIEW OF SYSTEMS General/Constitutional: Denies fever or chills. Denies weakness, weight change. HEENT: See HPI Cardiovascular: Denies chest pain or shortness of breath. Respiratory: Denies cough, wheezing, or hemoptysis. Gastrointestinal: Denies nausea, vomiting, diarrhea or constipation. Denies rectal bleeding. Genitourinary: Denies dysuria, frequency, or change in urination. Musculoskeletal: Denies joint or muscle swelling or pain. Denies neck or back pain. Skin and breasts: Denies rash or easy bruising. Neurologic: Denies headache, vertigo, loss of consciousness, or loss of sensation. Psychiatric: Denies depression or anxiety. Endocrine: Denies increased thirst. Denies abnormal weight change. Hematologic/Lymphatic: Denies anemia, easy bleeding, or history of blood clots. Allergic/Immunologic: Denies hives or skin allergy. Denies latex allergy. PHYSICAL EXAM General Appearance: Well-appearing, appropriately dressed. No apparent distress , no intoxication. HEENT: EOMI, PERRLA, normal ENT inspection, normal voice, TMs normal, pharynx normal. No conjunctival pallor. No photophobia, scleral icterus. Poor dentition present. Multiple dental caries noted. Swelling present to the buccal gingival surface of the left lower canine. No facial swelling present. Neck: Supple. Trachea midline. No tenderness, rigidity, carotid bruit, stridor , lymphadenopathy, or thyromegaly. Respiratory/Chest: Lungs CTAB. No shortness of breath, chest tenderness, respiratory distress, accessory muscle use. No crackles, rales, rhonchi, stridor , wheezing, dullness Cardiovascular: RRR. S1, S2. No JVD, murmur, bradycardia, tachycardia. 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 Fully oriented, alert. Appropriate mood/affect. Motor strength 5/5. No appreciable EOM palsy, facial droop or sensory deficit. 10/18/19 01:12 Past History - Past Medical History Allergies/Adverse Reactions: Allergies Allergy/AdvReac Type Severity Reaction Status Date / Time JESSI Inhibitors Allergy Swelling Verified 10/17/19 23:05 Home Medications: Ambulatory Orders Aspirin [ASA -] 81 mg PO DAILY 02/14/17 Metoprolol Succinate [Toprol Xl] 100 mg PO DAILY 02/14/17 metFORMIN HCL [Glucophage -] 850 mg PO BID 02/14/17 Exenatide Microspheres [Bydureon] 2 mg SQ TH 02/16/17 Irbesartan/Hydrochlorothiazide [Irbesartan-Hctz 300-12.5 mg Tb] 1 each PO DAILY 02/16/17 Rosuvastatin [Crestor -] 40 mg PO HS 02/24/17 Canagliflozin [Invokana] 100 mg PO DAILY 05/08/17 Alprazolam [Xanax] 0.5 mg PO Q6H PRN 12/01/17 Amlodipine Besylate [Norvasc -] 10 mg PO DAILY 02/03/18 Meclizine HCl [Bonine] 25 mg PO Q6H PRN 02/03/18 Oxycodone HCl/Acetaminophen [Percocet 5-325 mg Tablet] 1 tab PO Q6H PRN #5 tablet MDD 4 10/17/19 Cardiac Disorders: Yes ([place]) CVA: Yes COPD: No Diabetes: Yes HTN: Yes Hypercholesterolemia: Yes - Surgical History Cardiac Surgery: Yes (carotid & cardiac stent) - Psycho Social/Smoking Cessation Hx Smoking History: Never smoked Have you smoked in the past 12 months: No Hx Alcohol Use: No Drug/Substance Use Hx: No Substance Use Type: None Hx Substance Use Treatment: No *Physical Exam - Vital Signs Last Vital Signs Temp Pulse Resp BP Pulse Ox 98.1 F 95 H 18 170/77 99 10/17/19 23:03 10/17/19 23:03 10/17/19 23:03 10/17/19 23:03 10/17/19 23:03 Medical Decision Making - Medical Decision Making 10/18/19 00:01 A/P: 64-year-old male with toothache status post abscess drainage at his dentist Patient is currently been taking clindamycin and is scheduled to see the dentist on Saturday. Percocet prescription for 5 tablets to take until he can see his dentist Saturday morning Discharge home Discharge - Discharge Information Problems reviewed: Yes Clinical Impression/Diagnosis: Toothache Condition: Stable Disposition: HOME - Admission No - Additional Discharge Information Prescriptions: Oxycodone HCl/Acetaminophen [Percocet 5-325 mg Tablet] 1 tab PO Q6H PRN #5 tablet MDD 4 PRN Reason: Severe Pain - Follow up/Referral Referrals: Rigo Carroll [Primary Care Provider] - - Patient Discharge Instructions Patient Printed Discharge Instructions: DI for Dental Pain Additional Instructions: Rest, drink lots of fluids: Teas, water, soups Saltwater gargles/ keep mouth clean and rinse after each meal May use wet teabag for pain relief to area Avoid hard chewing foods, stick to ice cream, Jell-O, yogurt etc. Tylenol or Motrin for fever and pain Take Percocet 1 tablet every 6 hours as needed for pain. Complete all medication as prescribed Followup with your dentist in one to 2 days as needed Return to emergency department for worsened symptoms, fevers, swelling to face or worsened pain - Post Discharge Activity
== END 2019-10-18 00:11 | disposition home or self-care (01) ==
LOC: JER 22:59
DX: K08.89 Other specified disorders of teeth and supporting structures (principal); Z98.890 Other specified postprocedural states; I25.10 Atherosclerotic heart disease of native coronary artery without angina pectoris; I10 Essential (primary) hypertension; Z95.5 Presence of coronary angioplasty implant and graft; I25.2 Old myocardial infarction; E11.9 Type 2 diabetes mellitus without complications; Z79.84 Long term (current) use of oral hypoglycemic drugs; E78.00 Pure hypercholesterolemia, unspecified; Z86.73 Personal history of transient ischemic attack (TIA), and cerebral infarction without residual deficits; Z95.828 Presence of other vascular implants and grafts
CPT/HCPCS: 99281-25

== ENCOUNTER 2019-11-17 11:53 | Emergency (ER) | payer OTHER ==
[2019-11-17 12:04] VITALS: BMI 28.8
--- NOTE | 2019-11-17 13:37 | PDOC ---
History of Present Illness - General Chief Complaint: Weakness Stated Complaint: WEAKNES/NUMBNESS IN LEGS Time Seen by Provider: 11/17/19 12:22 History Source: Patient Exam Limitations: No Limitations - History of Present Illness Initial Comments: HPI: 64 y/o male presenting to [facility] ER complaining of numbness and heaviness to his feet for the past three weeks. Pt reports the sensation is "sometimes" in one foot and "sometimes" in both feet. Started after the recent of his sister. Denies trauma to the area, difficulty ambulating, headache, or change in vision. The pt is currently undergoing an outpatient workup by his PCP. Reports his A1C was above 10 last week. His doctor has asked him to return to the office tomorrow to adjust the medication. The pt has a h/o neuropathy managed with Gabapentin. Stopped the medication two months ago because the sensation in his feet improved. Medical Hx: - CAD (s/p cardiac stents + carotid endarterectomy) - HTN - CVA (w/no residual deficits) - NIDDM - Diabetic Neuropathy - Vertigo Review of Systems: In addition to that documented in the HPI above, the additional ROS was obtained : Constitutional- Denies fevers or chills Head- Denies vision changes ENMT- Denies sore throat CV- Denies chest pain Resp- Denies SOB GI- Denies vomiting or diarrhea - Denies painful urination MSK- Denies recent trauma Skin- Denies new rashes Neuro- Per HPI Endocrine- Denies polyuria Heme- Denies bleeding or bruising Physical Examination: Vital signs and nursing notes reviewed. Constitutional- Well-developed, well-nourished adult male in no acute distress or obvious discomfort. Found semi-fowlers on hospital bed. Answered all questions appropriately and completely. Head- Normocephalic. No obvious external signs of trauma. Eyes- PERRL. EOMI. Sclerae white. Conjunctiva moist and not injected. Ears- Hearing grossly intact. Nose- No nasal discharge. Cardiovascular / Chest- Regular rate and regular rhythm. ? end systolic murmur. No rubs, clicks, or gallops. Peripheral pulses- radial pulses full. Respiratory- Breathing unlabored. Equal chest rise and fall. Clear to auscultation bilaterally. No stridor, no wheezing, no rhonchi. Gastrointestinal- abdomen is soft, non-tender, non-distended. Neuro- Alert and oriented x4. Moving all four extremities spontaneously. No facial asymmetry. No slurred speech. No upper or lower extremity drift. Sensation to all four extremities intact. Plantar flexion and dorsiflexion 5/5. Gait normal. Observed ambulating unassisted without difficulty. Skin- Warm, dry, and intact. No bruising, rashes, or other lesions. Psych- Affect- appropriate. Mood- normal. Speech was non-labored, non- pressured. MDM: *Reviewed nursing notes and and prior visit documentation (if available). 64 y/o male presenting with bilateral sensation of feet heaviness w/ known h/o of diabetic neuropathy w/ recent non-adherence to Gabapentin. Afebrile. Vitals unremarkable for hypotension or tachycardia. Physical exam as described above. Appears neurologically intact. Suspect likely worsening of neuropathy secondary to stopping the Gabapentin. Possibly with concurrent dysthymia secondary to loss of sister. Currently undergoing outpatient workup. Next appointment scheduled for tomorrow. Labs revealed mild hypokalemia. Low suspicion for acute clinical significance, but will replenish with PO Kdur. Discussed laboratory results with pt. Answered all questions. Provided return precautions. pt expressed verbal understanding and agreement with plan to discharge home with outpatient follow up. Provided copies of todays results. Teofilo Walter M.D., PGY2 Emergency Medicine Resident Past History - Past Medical History Allergies/Adverse Reactions: Allergies Allergy/AdvReac Type Severity Reaction Status Date / Time JESSI Inhibitors Allergy Swelling Verified 11/17/19 12:04 Home Medications: Ambulatory Orders Aspirin [ASA -] 81 mg PO DAILY 02/14/17 Metoprolol Succinate [Toprol Xl] 100 mg PO DAILY 02/14/17 metFORMIN HCL [Glucophage -] 850 mg PO BID 02/14/17 Exenatide Microspheres [Bydureon] 2 mg SQ TH 02/16/17 Irbesartan/Hydrochlorothiazide [Irbesartan-Hctz 300-12.5 mg Tb] 1 each PO DAILY 02/16/17 Rosuvastatin [Crestor -] 40 mg PO HS 02/24/17 Canagliflozin [Invokana] 100 mg PO DAILY 05/08/17 Alprazolam [Xanax] 0.5 mg PO Q6H PRN 12/01/17 Amlodipine Besylate [Norvasc -] 10 mg PO DAILY 02/03/18 Meclizine HCl [Bonine] 25 mg PO Q6H PRN 02/03/18 Oxycodone HCl/Acetaminophen [Percocet 5-325 mg Tablet] 1 tab PO Q6H PRN #5 tablet MDD 4 10/17/19 Cardiac Disorders: Yes ([place]) CVA: Yes COPD: No Diabetes: Yes HTN: Yes Hypercholesterolemia: Yes - Surgical History Cardiac Surgery: Yes (carotid & cardiac stent) - Psycho Social/Smoking Cessation Hx Smoking History: Never smoked Have you smoked in the past 12 months: No Hx Alcohol Use: No Drug/Substance Use Hx: No Substance Use Type: None Hx Substance Use Treatment: No *Physical Exam - Vital Signs Last Vital Signs Temp Pulse Resp BP Pulse Ox 98 F 91 H 18 129/73 98 11/17/19 11:59 11/17/19 11:59 11/17/19 11:59 11/17/19 11:59 11/17/19 11:59 ED Treatment Course - LABORATORY CBC & Chemistry Diagram: 11/17/19 13:33 11/17/19 13:33 - ADDITIONAL ORDERS Additional order review: Laboratory Results 11/17/19 13:22 POC Glucometer 147 11/17/19 13:22 POC Glucometer 147 Discharge - Discharge Information Problems reviewed: Yes Clinical Impression/Diagnosis: Hypokalemia Pain, foot, chronic Qualifiers: Laterality: unspecified laterality Qualified Code(s): M79.673 - Pain in unspecified foot; G89.29 - Other chronic pain Condition: Good Disposition: HOME - Admission No - Follow up/Referral - Patient Discharge Instructions Patient Printed Discharge Instructions: DI for Hypokalemia, DI for Diabetic Neuropathy Additional Instructions: You were seen today for foot heaviness. This is likely a worsening of your diabetic neuropathy. You need to continue to take the Gabapentin. Your potassium level was slightly low today. This is likely a side effect of one of your medications, but not likely to be related to your foot heaviness. YOu were given Kdur to raise your potassium. Follow up with your primary care doctor tomorrow at your previously scheduled appointment. A copy of todays results are attached to this packet. Take it to the appointment so your doctor can review them. Go to the nearest emergency department if your condition worsens or you feel like you need additional emergency evaluation. Print Language: BENINESE - Post Discharge Activity
[2019-11-17 13:41] LABS: BASO % 0.6 % (0-2.0); EOS % 0.7 % (0-4.5); HEMATOCRIT 38.4 % (35.4-49); HEMOGLOBIN 12.8 GM/dL (11.7-16.9); LYMPH % 26.2 % (8-40); MCH 26.2 pg (25.7-33.7); MCHC 33.2 g/dl (32.0-35.9); MEAN CELL VOLUME 78.7 fl (80-96); MEAN PLT VOLUME 8.1 fl (7.5-11.1); MONO % 7.6 % (3.8-10.2); NEUT % 64.9 % (42.8-82.8); PLATELET COUNT 243 K/MM3 (134-434); RBC 4.88 M/mm3 (4.00-5.60); RDW 14.9 % (11.9-15.9); WHITE BLOOD COUNT 6.2 K/mm3 (4.0-10.0)
--- NOTE | 2019-11-17 13:45 | PDOC ---
Attending Attestation - Resident Resident Name: WalterTeofilo - ED Attending Attestation I have performed the following: I have examined & evaluated the patient, The case was reviewed & discussed with the resident, I agree w/resident's findings & plan - HPI HPI: 11/17/19 13:42 64 y.o. male with a PMH of CAD (s/p cardiac stents), carotid stenosis s/p carotid endarterectomy, HTN, HLD, CVA (w/no residual deficits), NIDDM and vertigo Presenting with b/l feet numbness x 2 weeks; previously managed on gabapentin by his primary started about 1 year ago, but he stopped taking it 2 months ago because his neuropathy improved. Last checked with PMD 2 weeks ago, told his HbAIC was ~10. He has pureed diet of carbohydrates, sugar, poorly compliant with his diabetic diet. Has PMD appt tomorrow. No focal neuro changes. No focal weakness. No trauma or falls, no s/s infection. - Physicial Exam PE: 11/17/19 13:42 Agree with the resident's HPI and PE as documented in the electronic medical record. NAD, well appearing, EOMI, PERRL, nl conjunctiva, anicteric; neck supple. lungs clear, RRR, abdomen soft nontender. no rebound, guarding. Back nontender. BETHEA x4, no focal neuro deficits. No peripheral edema. normal color for ethnicity , WWP. Alert, oriented to person time and place. CN II-XII grossly intact. Strength prox and distally 5/5 throughout. Sensation decreased to gross touch along bilateral soles/plantar feet. BETHEA x4. No cerebellar signs, no dysmetria, bilateral finger to nose and heel to christensen equal and symmetric. Speech clear. - Medical Decision Making 11/17/19 13:43 Vital Signs Temp Pulse Resp BP Pulse Ox 98 F 91 H 18 129/73 98 11/17/19 11:59 11/17/19 11:59 11/17/19 11:59 11/17/19 11:59 11/17/19 11:59 Patient symptoms are most consistent with chronic peripheral neuropathy, poorly compliant with his gabapentin as he had stopped taking it 2 months ago and restarted 2 weeks ago due to the improvement of his symptoms. Denies any trauma , no focal neurologic deficits. No signs of infection. He has decreased sensation along his plantar foot bilaterally. Gait is stable, no cerebellar signs. No headache or dizziness, chest pain or shortness of breath. Will check electrolytes, fingerstick here is normal. Compliance with diabetic diet is advised. Patient was recommended to be compliant with his gabapentin and management of his hemoglobin A1c which has been elevated, he has primary care doctor appointment tomorrow for reevaluation. Instructed that diabetes needs to be carefully managed as diabetic neuropathy can cause ulcers infection and trauma. sx are not focal, not consistent with CVA, so defer testing/head imaging at this time lytes unremarkable, potassium mildly low 3.3, given PO tab, potassium diet recommended, unlikely cause of his neuropathy, as this is appearing chronic and related to poor control of DM Pt to be discharged in stable condition. Patient made aware of clinical impression, treatment recommendations and disposition plan, return precautions discussed (including but not limited to new or persistent/worsening symptoms, pain, fevers, or signs of infection, chest pain, respiratory distress, inability to tolerate oral intake, dehydration, syncope, or neurologic changes) . Follow up with PMD as recommended, follow up information provided, take medications as instructed for duration of time. continue with supportive care, avoid triggers and precipitants. All questions answered to patient's satisfaction and expressed understanding and comfort with this. At the time of discharge, the patient is alert, clinically improved, tolerating po and verbalizes understanding of instructions, satisfied with the care received and felt comfortable with the plan. Patient does not suffer from an acute life- threatening medical condition at this time and is safe for outpatient follow- up. 11/17/19 14:27 Heart Score/ECG Review #1 ECG reviewed & interpreted by me at: 13:25 General ECG Interpretation: Sinus Rhythm, Normal Rate, Normal Intervals Compared to previous ECG there are: No significant change 11/17/19 13:46 EKG normal sinus rhythm at 95 bpm, no interval abnormalities, narrow QRS, ST and T wave segments and morphology normal. Nonspecific T wave abnormalities
[2019-11-17 14:08] LABS: ALBUMIN 4.3 g/dl (3.4-5.0); BILIRUBIN,TOTAL 0.6 mg/dL (0.2-1); BLOOD UREA NITROGEN 21.7 mg/dL (7-18); CALCIUM 9.8 mg/dL (8.5-10.1); CREATININE 1.3 mg/dL (0.55-1.3); POTASSIUM 3.3 mmol/L (3.5-5.1)
[2019-11-17] MEDS ORDERED: POTASSIUM CHLORIDE TABS 20 MEQ TABLET.ER (FP) PO ONE ×2 (14:21→14:26)
[2019-11-17 14:38] VITALS: BP 125/71; PULSE 86; TEMP 97.9
== END 2019-11-17 14:40 | disposition home or self-care (01) ==
LOC: JER 11:53
DX: E87.6 Hypokalemia (principal); M79.673 Pain in unspecified foot; I25.2 Old myocardial infarction; Z86.73 Personal history of transient ischemic attack (TIA), and cerebral infarction without residual deficits; Z88.8 Allergy status to other drugs, medicaments and biological substances; E11.9 Type 2 diabetes mellitus without complications; I10 Essential (primary) hypertension; E78.00 Pure hypercholesterolemia, unspecified; G89.29 Other chronic pain
CPT/HCPCS: 36415; 80053; 82962; 85025; 99283-25

== ENCOUNTER 2019-11-18 21:53 | Emergency (ER) | payer OTHER ==
[2019-11-18 22:01] VITALS: BP 141/71; PULSE 87; TEMP 97.6; BMI 30.7
[2019-11-18] MEDS ORDERED: MAG HYDROX/AL HYDROX/SIMETH 30 ML UNIT-DOSE CUP PO ONE (23:40)
[2019-11-18] MEDS ORDERED: FAMOTIDINE 20 MG/50 ML IVPB 20 MG/50 ML MG IVPB ONE (23:40)
--- NOTE | 2019-11-18 23:53 | PDOC ---
Attending Attestation - Resident Resident Name: Sally Naranjo - ED Attending Attestation I have performed the following: I have examined & evaluated the patient, The case was reviewed & discussed with the resident, I agree w/resident's findings & plan - HPI HPI: 11/19/19 01:31 see resident hpi - Physicial Exam PE: 11/19/19 01:31 agree with resident exam - Medical Decision Making 11/19/19 01:31 64-year-old male complaining of epigastric discomfort radiating into the chest earlier this evening, now resolved Patient has a history of coronary artery disease status post stenting Plan for observation and serial troponins
[2019-11-19] MEDS ORDERED: MAG HYDROX/AL HYDROX/SIMETH 30 ML UNIT-DOSE CUP ONE (00:16)
[2019-11-19] MEDS ORDERED: FAMOTIDINE 20 MG/50 ML IVPB 20 MG/50 ML MG IVPB ONE (00:16)
[2019-11-19 00:18] LABS: BASO % 0.8 % (0-2.0); EOS % 1.1 % (0-4.5); HEMATOCRIT 40.1 % (35.4-49); HEMOGLOBIN 13.6 GM/dL (11.7-16.9); LYMPH % 26.6 % (8-40); MCH 26.9 pg (25.7-33.7); MCHC 33.8 g/dl (32.0-35.9); MEAN CELL VOLUME 79.5 fl (80-96); MEAN PLT VOLUME 8.4 fl (7.5-11.1); MONO % 8.1 % (3.8-10.2); NEUT % 63.4 % (42.8-82.8); PLATELET COUNT 254 K/MM3 (134-434); RBC 5.05 M/mm3 (4.00-5.60); RDW 14.9 % (11.9-15.9); WHITE BLOOD COUNT 5.5 K/mm3 (4.0-10.0)
[2019-11-19 00:30] LABS: INR 1.04 (0.83-1.09); PROTHROMBIN TIME (PATIENT) 12.3 SEC (9.7-13.0)
[2019-11-19 00:42] LABS: ALBUMIN 4.4 g/dl (3.4-5.0); ALK PHOS 118 U/L (45-117); ANION GAP 9 MMOL/L (8-16); BILIRUBIN,TOTAL 0.6 mg/dL (0.2-1); BLOOD UREA NITROGEN 19.1 mg/dL (7-18); CALCIUM 10.1 mg/dL (8.5-10.1); CHLORIDE 97 mmol/L (98-107); CO2 32 mmol/L (21-32); CREATININE 1.2 mg/dL (0.55-1.3); GLUCOSE,RANDOM 169 mg/dL (74-106); LIPASE 133 U/L (73-393); MAGNESIUM 2.3 mg/dL (1.8-2.4); POTASSIUM 3.6 mmol/L (3.5-5.1); SGOT/AST 27 U/L (15-37); SGPT/ALT 53 U/L (13-61); SODIUM 138 mmol/L (136-145); TOT PROT 8.4 g/dl (6.4-8.2)
--- NOTE | 2019-11-19 01:38 | PDOC ---
History of Present Illness - General Chief Complaint: Chest Pain Stated Complaint: CHEST PAIN Time Seen by Provider: 11/18/19 23:39 History Source: Patient Exam Limitations: No Limitations - History of Present Illness Initial Comments: 11/19/19 01:32 64y M with PMH of CAD s/p stent x4, DM, HTN, HLD, BPH presenting to ED with complaints of chest pain that started today after lunch and dinner. Patient states the pain was a burning sensation lasting 3 hours. Currently does not have chest pain. He denies sob, fevers, chills, back pain, syncope, leg swelling , recent travel, recent surgeries, palpitations, abdominal pain, n/v/d. PMD: Carly PMH: see hpi Meds: see med rec Allergies: nkda Social: Past History - Past Medical History Allergies/Adverse Reactions: Allergies Allergy/AdvReac Type Severity Reaction Status Date / Time JESSI Inhibitors Allergy Swelling Verified 11/18/19 22:01 Home Medications: Ambulatory Orders Aspirin [ASA -] 81 mg PO DAILY 02/14/17 Metoprolol Succinate [Toprol Xl] 100 mg PO DAILY 02/14/17 metFORMIN HCL [Glucophage -] 850 mg PO BID 02/14/17 Exenatide Microspheres [Bydureon] 2 mg SQ TH 02/16/17 Irbesartan/Hydrochlorothiazide [Irbesartan-Hctz 300-12.5 mg Tb] 1 each PO DAILY 02/16/17 Rosuvastatin [Crestor -] 40 mg PO HS 02/24/17 Canagliflozin [Invokana] 100 mg PO DAILY 05/08/17 Alprazolam [Xanax] 0.5 mg PO Q6H PRN 12/01/17 Amlodipine Besylate [Norvasc -] 10 mg PO DAILY 02/03/18 Meclizine HCl [Bonine] 25 mg PO Q6H PRN 02/03/18 Oxycodone HCl/Acetaminophen [Percocet 5-325 mg Tablet] 1 tab PO Q6H PRN #5 tablet MDD 4 10/17/19 Cardiac Disorders: Yes ([place] 10YRS AGO) CVA: Yes COPD: No Diabetes: Yes HTN: Yes Hypercholesterolemia: Yes - Surgical History Cardiac Surgery: Yes (carotid & cardiac stent) - Immunization History Immunization Up to Date: Yes - Psycho Social/Smoking Cessation Hx Smoking History: Never smoked Have you smoked in the past 12 months: No Information on smoking cessation initiated: No Hx Alcohol Use: No Drug/Substance Use Hx: No Substance Use Type: None Hx Substance Use Treatment: No Cardiac Specific PMH - Complaint Specific PMHX Abdominal Aortic Aneurysm: No Angina: No Cardiac Arrhythmia: No Cardiac Stent: No GERD: No Pacemaker: No Pulmonary Embolus: No Valvular Heart Disease: No Peripheral Vascular Disease: No Review of Systems - Review of Systems Constitutional: No: Symptoms Reported HEENTM: No: Symptoms Reported Respiratory: No: Symptoms reported Cardiac (ROS): Yes: See HPI ABD/GI: Yes: See HPI : No: Symptoms Reported Musculoskeletal: No: Symptoms Reported Integumentary: No: Symptoms Reported Neurological: No: Symptoms reported *Physical Exam - Vital Signs Last Vital Signs Temp Pulse Resp BP Pulse Ox 97.6 F 87 17 141/71 100 11/18/19 21:55 11/18/19 21:55 11/18/19 21:55 11/18/19 21:55 11/18/19 21:55 - Physical Exam General Appearance: Yes: Nourished, Appropriately Dressed. No: Apparent Distress HEENT: positive: EOMI, ARASH, Normal ENT Inspection Neck: positive: Trachea midline, Supple Respiratory/Chest: positive: Lungs Clear, Normal Breath Sounds. negative: Chest Tender, Crackles, Rales, Rhonchi, Stridor, Wheezing Cardiovascular: positive: Regular Rhythm, Regular Rate, S1, S2. negative: Edema , JVD, Murmur Gastrointestinal/Abdominal: positive: Normal Bowel Sounds, Soft. negative: Tender Musculoskeletal: negative: CVA Tenderness Extremity: positive: Normal Capillary Refill. negative: Pedal Edema, Swelling, Calf Tenderness, Erythema Integumentary: positive: Normal Color, Dry, Warm Neurologic: positive: segregator II-XII NML intact, Fully Oriented, Alert, Normal Mood/ Affect, Normal Response, Motor Strength / ED Treatment Course - LABORATORY CBC & Chemistry Diagram: 11/19/19 00:06 11/19/19 00:06 - ADDITIONAL ORDERS Additional order review: Laboratory Results 11/19/19 11/19/19 00:06 00:06 PT with INR 12.30 INR 1.04 Sodium 138 Potassium 3.6 Chloride 97 L Carbon Dioxide 32 Anion Gap 9 BUN 19.1 H Creatinine 1.2 Est GFR (CKD-EPI)AfAm 74.66 Est GFR (CKD-EPI)NonAf 64.42 Random Glucose 169 H Calcium 10.1 Magnesium 2.3 Total Bilirubin 0.6 AST 27 ALT 53 Alkaline Phosphatase 118 H Creatine Kinase 722 H Troponin I < 0.02 Total Protein 8.4 H Albumin 4.4 Lipase 133 11/19/19 00:06 RBC 5.05 MCV 79.5 L MCHC 33.8 RDW 14.9 MPV 8.4 Neutrophils % 63.4 Lymphocytes % 26.6 Monocytes % 8.1 Eosinophils % 1.1 Basophils % 0.8 - RADIOLOGY Radiology Studies Ordered: Category Date Time Status CHEST PA & LAT [RAD] Stat Radiology 11/19/19 01:09 Taken - Medications Given in the ED: ED Medications Discontinued Medications Generic Name Dose Route Start Last Admin Trade Name Freq PRN Reason Stop Dose Admin Al Hydroxide/Mg Hydroxide 30 ml 11/18/19 23:40 11/19/19 00:43 Mylanta Oral Suspension - PO 11/18/19 23:41 30 ml ONCE ONE Administration Famotidine/Sodium Chloride 20 mg in 50 mls @ 100 mls/hr 11/18/19 23:40 00:43 Pepcid 20 Mg Premixed Ivpb - IVPB 11/19/19 00:09 100 mls/hr ONCE ONE Administration Medical Decision Making - Medical Decision Making 11/19/19 01:51 64y M with CAD, DM, HTN presenting to ED with burning like chest pain that has now resolved. pain lasted 3 hours after eating spicy food. vitals wnl ddx includes but not limited to GERD, NV, PTx, pna, dissection pe low suspicoin for disection/pe. will obtain basic labs, cardiac labs, lipase cxr, ekg, pepcid, maalox labs show elevatd ck, ckmb and normal ck index. negative trop. cxr unremarkable pt to be admitted obs to r/o acs. pt declined to stay stating he had to move his car which is at home and his is all alone. pt advised that staying will help us determine if his pain is cardiac related and that leaving could result in mi and possibly . pt understands but wants to leave. pt advised to return at any time if he is concerned or has symptoms. signed AMA Discharge - Discharge Information Problems reviewed: Yes Clinical Impression/Diagnosis: Chest pain Qualifiers: Chest pain type: unspecified Qualified Code(s): R07.9 - Chest pain, unspecified Condition: Good Disposition: AGAINST MEDICAL ADVICE - Follow up/Referral Referrals: Rigo Carroll [Primary Care Provider] - - Patient Discharge Instructions Patient Printed Discharge Instructions: DI for Atypical Chest Pain, DI for Gastroesophageal Reflux Disease (GERD) Additional Instructions: You were seen in the emergency room today for chest pain. Your blood work is ok but we wanted to watch you overnight to make sure everything is ok with your heart. Please come back to the emergency room if you have worsening chest pain, have shortness of breath or if any new or concerning symptom develops. Thank you - Post Discharge Activity
--- NOTE | 2019-11-19 11:58 | EKG ---
Test Reason : Blood Pressure : / mmHG Vent. Rate : 078 BPM Atrial Rate : 078 BPM P-R Int : 176 ms QRS Dur : 094 ms QT Int : 396 ms P-R-T Axes : 054 047 026 degrees QTc Int : 451 ms NORMAL SINUS RHYTHM NORMAL ECG WHEN COMPARED WITH ECG OF 17-NOV-2019 13:23, NO SIGNIFICANT CHANGE WAS FOUND Confirmed by YANG ABBOTT MD ([id number]) on 11/19/2019 11:57:44 AM Referred By: Confirmed By:YANG ABBOTT MD
== END 2019-11-19 02:26 | disposition left against medical advice (07) ==
LOC: JER 21:53
PROC: 3E033GC Introduction of Other Therapeutic Substance into Peripheral Vein, Percutaneous Approach (ICD-10-PCS; principal; 2019-11-18)
DX: R07.9 Chest pain, unspecified (principal); I25.10 Atherosclerotic heart disease of native coronary artery without angina pectoris; I10 Essential (primary) hypertension; Z95.5 Presence of coronary angioplasty implant and graft; I25.2 Old myocardial infarction; E11.9 Type 2 diabetes mellitus without complications; Z79.84 Long term (current) use of oral hypoglycemic drugs; E78.5 Hyperlipidemia, unspecified; N40.0 Benign prostatic hyperplasia without lower urinary tract symptoms; Z86.73 Personal history of transient ischemic attack (TIA), and cerebral infarction without residual deficits; Z88.8 Allergy status to other drugs, medicaments and biological substances
CPT/HCPCS: 36415; 71046-TC-FY; 80053; 82550; 82553; 83690; 83735; 84484; 85025; 85610; 93005; 93010; 99283-25

== ENCOUNTER 2019-12-18 06:57 | Emergency (ER) | payer OTHER ==
[2019-12-18 07:12] VITALS: TEMP 97.7; BMI 28.1
--- NOTE | 2019-12-18 07:46 | PDOC ---
History of Present Illness <JaclynJovita Kirby - Last Filed: 12/18/19 08:50> - History of Present Illness Initial Comments: 12/18/19 07:41 Pt is a 64y/o male with IDDM, HTN, HLD, CAD s/p stents, CEA and newly diagnosed peripheral vascular disease who presents after feeling hot after breakfast and systolic pressure was above 200 this morning. He took BP meds prior to breakfast then had tea and toast. BG this morning was 180. His A1C was recently 10 and started insulin yesterday around lunch time but is unsure of name or dose. He has been feeling "off" since. He reports BARCLAY yesterday. He had chills and some generalized weakness this morning but was able to ambulate. <Pao Hopkins - Last Filed: 12/18/19 08:55> - General Chief Complaint: Pain, Acute Stated Complaint: RT ARM PAIN Time Seen by Provider: 12/18/19 07:09 Past History <Jovita Anaya - Last Filed: 12/18/19 08:50> - Past Medical History Cardiac Disorders: Yes (SD 10YRS AGO) CVA: Yes COPD: No Diabetes: Yes HTN: Yes Hypercholesterolemia: Yes - Surgical History Cardiac Surgery: Yes (carotid & cardiac stent) - Immunization History Immunization Up to Date: Yes - Psycho Social/Smoking Cessation Hx Smoking History: Never smoked Have you smoked in the past 12 months: No Hx Alcohol Use: Yes Drug/Substance Use Hx: No Substance Use Type: None Hx Substance Use Treatment: No <Pao Hopkins - Last Filed: 12/18/19 08:55> - Past Medical History Allergies/Adverse Reactions: Allergies Allergy/AdvReac Type Severity Reaction Status Date / Time JESSI Inhibitors Allergy Cough Verified 12/18/19 07:45 Home Medications: Ambulatory Orders Aspirin [ASA -] 81 mg PO DAILY 02/14/17 Metoprolol Succinate [Toprol Xl] 100 mg PO DAILY 02/14/17 Exenatide Microspheres [Bydureon] 2 mg SQ Q7D 02/16/17 Irbesartan/Hydrochlorothiazide [Irbesartan-Hctz 300-12.5 mg Tb] 1 each PO DAILY 02/16/17 Rosuvastatin [Crestor -] 40 mg PO HS 02/24/17 Canagliflozin [Invokana] 100 mg PO DAILY 05/08/17 Alprazolam [Xanax] 0.5 mg PO Q6H PRN 12/01/17 Amlodipine Besylate [Norvasc -] 10 mg PO DAILY 02/03/18 Review of Systems - Review of Systems Constitutional: Yes: Chills. No: Diaphoresis, Loss of Appetite Cardiac (ROS): No: Chest Pain ABD/GI: No: Nausea, Vomiting : No: Dysuria Neurological: Yes: Headache. No: Dizziness <Pao Hopkins - Last Filed: 12/18/19 08:55> *Physical Exam - Vital Signs Last Vital Signs Temp Pulse Resp BP Pulse Ox 97.7 F 87 19 161/86 98 12/18/19 06:58 12/18/19 06:58 12/18/19 06:58 12/18/19 06:58 12/18/19 08:06 <AnayaJovitaseven Orr - Last Filed: 12/18/19 08:50> - Vital Signs Last Vital Signs Temp Pulse Resp BP Pulse Ox 97.7 F 87 19 161/86 98 12/18/19 06:58 12/18/19 06:58 12/18/19 06:58 12/18/19 06:58 12/18/19 06:58 - Physical Exam General Appearance: Yes: Nourished, Appropriately Dressed. No: Apparent Distress HEENT: positive: EOMI, ARASH Neck: positive: Trachea midline Respiratory/Chest: positive: Lungs Clear Cardiovascular: positive: Regular Rhythm, Regular Rate. negative: Murmur Gastrointestinal/Abdominal: positive: Normal Bowel Sounds. 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, Fully Oriented, Alert, Normal Mood/ Affect, Other (normal gait) <Pao Hopkins - Last Filed: 12/18/19 08:55> ED Treatment Course - LABORATORY CBC & Chemistry Diagram: 12/18/19 08:00 12/18/19 08:00 - ADDITIONAL ORDERS Additional order review: Laboratory Results 12/18/19 12/18/19 12/18/19 08:00 08:00 07:50 WBC 5.7 RBC 5.15 Hgb 13.7 Hct 40.2 MCV 78.0 L MCH 26.5 MCHC 34.0 RDW 15.2 Plt Count 230 MPV 8.3 Sodium 136 Potassium 3.4 L Chloride 96 L Carbon Dioxide 33 H Anion Gap 7 L BUN 22.6 H Creatinine 1.2 Est GFR (CKD-EPI)AfAm 74.66 Est GFR (CKD-EPI)NonAf 64.42 POC Glucometer 186 Random Glucose 186 H Calcium 9.8 Total Bilirubin 0.5 AST 21 ALT 48 Alkaline Phosphatase 109 Troponin I < 0.02 Total Protein 8.4 H Albumin 4.6 12/18/19 12/18/19 08:00 07:50 RBC 5.15 MCV 78.0 L MCHC 34.0 RDW 15.2 MPV 8.3 POC Glucometer 186 <Jovita Anaya - Last Filed: 12/18/19 08:50> - LABORATORY CBC & Chemistry Diagram: 12/18/19 08:00 12/18/19 08:00 <Pao Hopkins - Last Filed: 12/18/19 08:55> Medical Decision Making - Medical Decision Making 12/18/19 07:51 Pt is a 64y/o male with IDDM, HTN, HLD, CAD s/p stents, CEA and newly diagnosed peripheral vascular disease who presents after feeling hot after breakfast and systolic pressure was above 200 this morning. He started insulin yesterday as well. Systolic is 161 now and pt is comfortable. Differential: hypertensive urgency, hypoglycemia/hyperglycemia, anxiety Order: EKG, troponin, CBC, CMP 12/18/19 08:39 EKG- NSR, HR 82, [id number], no acute ST changes 12/18/19 08:52 troponin negative, CBC unremarkable, CMP near baseline from previous visits, repeat BP 115/63 Pt able to be discharged. <Pao Hopkins - Last Filed: 12/18/19 08:55> Discharge - Discharge Information Problems reviewed: Yes - Admission No <Jovita Anaya - Last Filed: 12/18/19 08:50> - Discharge Information Problems reviewed: Yes <Pao Hopkins - Last Filed: 12/18/19 08:55> - Discharge Information Clinical Impression/Diagnosis: Hypertension Qualifiers: Hypertension type: essential hypertension Qualified Code(s): I10 - Essential ( primary) hypertension Condition: Stable Disposition: HOME - Follow up/Referral Referrals: Rigo Carroll [Primary Care Provider] - - Patient Discharge Instructions Patient Printed Discharge Instructions: Recommendations to Help Prevent High Blood Pressure, Essential Hypertension Additional Instructions: You were seen in the emergency room for elevated blood pressure at home. It was improved here. Your labs are normal, and you are able to go home. Please follow up with Dr. Carroll next week for your blood pressure and diabetes. Return to the emergency room or call 911 if your blood pressure is above 200/ 100s again, or you feel dizzy, weak, have headache, chest pain, or difficulty breathing. - Post Discharge Activity
--- NOTE | 2019-12-18 07:49 | PDOC ---
Attending Attestation - Resident Resident Name: Pao Hopkins - ED Attending Attestation I have performed the following: I have examined & evaluated the patient, The case was reviewed & discussed with the resident, I agree w/resident's findings & plan - HPI HPI: 12/18/19 07:48 64 y.o. male with a PMH of CAD (s/p cardiac stents), carotid stenosis s/p carotid endarterectomy, HTN, HLD, CVA (w/no residual deficits), NIDDM and vertigo p/w feeling hot after breakfast, noted his BP to be elevated. he also noted the heat to be on relatively high this morning. He took BP meds prior to breakfast then had tea and toast. BG this morning was 180. His A1C was recently 10 and started insulin yesterday around lunch time but is unsure of name or dose. He has been feeling "off" since. He reports BARCLAY yesterday. He had chills and some generalized weakness this morning but was able to ambulate. Home medications include amlodipine R/hydrochlorothiazide, metoprolol, Crestor, has been compliant with his medications. 12/18/19 09:08 - Physicial Exam PE: 12/18/19 07:48 Agree with the resident's HPI and PE as documented in the electronic medical record. NAD, well appearing, EOMI, PERRL, nl conjunctiva, anicteric; neck supple. lungs clear, RRR, abdomen soft nontender. no rebound, guarding. Back nontender. BETHEA x4, no focal neuro deficits. No peripheral edema. normal color for ethnicity , [facility]. - Medical Decision Making 12/18/19 07:49 Vital Signs Temp Pulse Resp BP Pulse Ox 97.7 F 87 19 161/86 98 12/18/19 06:58 12/18/19 06:58 12/18/19 06:58 12/18/19 06:58 12/18/19 06:58 12/18/19 08:25 DDx: ACS, coronary vasospasm, NSTEMI, arrhythmia, unstable angina, PE, dissection, PUD, esophageal spasm, GERD, gastritis, costochondritis, pneumonia, pleurisy, pericarditis/myocarditis. dehydration, electrolyte/metabolic derangements. Considered but clinically doubt based on HPI and PE: Low suspicion for pulmonary embolism or dissection. No evidence of ACS, pericarditis, myocarditis, pulmonary embolism, pneumothorax , pneumonia, Zoster, or esophageal perforation. Historically not abrupt in onset , tearing or ripping, pulses symmetric, no evidence of aortic dissection. EKG normal sinus rhythm, no interval abnormalities, narrow QRS, ST and T wave segments and morphology normal. Nonspecific T wave abnormalities, unchanged from prior no cp no sob. no imaging indicated no systemic or infectious sx. no neuro sx, no focal deficits. ambulatory lawrence PO intake. Blood pressure here has stabilized 161/86, normal heart rate afebrile nontoxic appearing. Laboratory results including troponin are negative, potassium is mildly low at 3.4 repleted with p.o. potassium 40 mEq Pt to be discharged in stable condition. Patient made aware of clinical impression, treatment recommendations and disposition plan, return precautions discussed (including but not limited to new or persistent/worsening symptoms, pain, fevers, or signs of infection, chest pain, respiratory distress, inability to tolerate oral intake, dehydration, syncope, or neurologic changes) . Follow up with PMD as recommended, follow up information provided, take medications as instructed for duration of time. continue with supportive care, avoid triggers and precipitants. All questions answered to patient's satisfaction and expressed understanding and comfort with this. At the time of discharge, the patient is alert, clinically improved, tolerating po and verbalizes understanding of instructions, satisfied with the care received and felt comfortable with the plan. Patient does not suffer from an acute life- threatening medical condition at this time and is safe for outpatient follow- up. 12/18/19 08:49 12/18/19 09:08 Heart Score/ECG Review #1 ECG reviewed & interpreted by me at: 07:50 General ECG Interpretation: Sinus Rhythm, Normal Rate, Normal Intervals Compared to previous ECG there are: No significant change 12/18/19 08:24 EKG normal sinus rhythm at 82 bpm, no interval abnormalities, narrow QRS, ST and T wave segments and morphology normal. Nonspecific T wave abnormalities
[2019-12-18 08:13] LABS: HEMATOCRIT 40.2 % (35.4-49); HEMOGLOBIN 13.7 GM/dL (11.7-16.9); MCH 26.5 pg (25.7-33.7); MEAN PLT VOLUME 8.3 fl (7.5-11.1); PLATELET COUNT 230 K/MM3 (134-434); RBC 5.15 M/mm3 (4.00-5.60); RDW 15.2 % (11.9-15.9); WHITE BLOOD COUNT 5.7 K/mm3 (4.0-10.0)
[2019-12-18 08:48] LABS: ALBUMIN 4.6 g/dl (3.4-5.0); ALK PHOS 109 U/L (45-117); ANION GAP 7 MMOL/L (8-16); BILIRUBIN,TOTAL 0.5 mg/dL (0.2-1); BLOOD UREA NITROGEN 22.6 mg/dL (7-18); CALCIUM 9.8 mg/dL (8.5-10.1); CHLORIDE 96 mmol/L (98-107); CO2 33 mmol/L (21-32); CREATININE 1.2 mg/dL (0.55-1.3); GLUCOSE,RANDOM 186 mg/dL (74-106); POTASSIUM 3.4 mmol/L (3.5-5.1); SGOT/AST 21 U/L (15-37); SGPT/ALT 48 U/L (13-61); SODIUM 136 mmol/L (136-145); TOT PROT 8.4 g/dl (6.4-8.2)
[2019-12-18] MEDS ORDERED: POTASSIUM CHLORIDE TABS 20 MEQ TABLET.ER (FP) PO ONE ×2 (08:49→08:59)
[2019-12-18 08:52] VITALS: BP 115/63; PULSE 80
--- NOTE | 2019-12-18 13:19 | EKG ---
Test Reason : Blood Pressure : / mmHG Vent. Rate : 082 BPM Atrial Rate : 082 BPM P-R Int : 178 ms QRS Dur : 086 ms QT Int : 384 ms P-R-T Axes : 056 057 041 degrees QTc Int : 448 ms NORMAL SINUS RHYTHM WHEN COMPARED WITH ECG OF 18-NOV-2019 22:11, NO SIGNIFICANT CHANGE WAS FOUND Confirmed by MAYDA FRIEND MD ([id number]) on 12/18/2019 1:18:37 PM Referred By: Confirmed By:MAYDA FRIEND MD
== END 2019-12-18 09:28 | disposition home or self-care (01) ==
LOC: JER 06:57
DX: I10 Essential (primary) hypertension (principal); Z88.8 Allergy status to other drugs, medicaments and biological substances; E11.9 Type 2 diabetes mellitus without complications; E78.5 Hyperlipidemia, unspecified; I25.10 Atherosclerotic heart disease of native coronary artery without angina pectoris; Z95.5 Presence of coronary angioplasty implant and graft
CPT/HCPCS: 36415; 80053; 82962; 84484; 85027; 93005; 93010; 99284-25

== ENCOUNTER 2020-01-17 01:08 | Observation (INO) | payer OTHER ==
[2020-01-17 01:14] VITALS: BMI 27.6
--- NOTE | 2020-01-17 01:31 | PDOC ---
History of Present Illness - General Chief Complaint: Weakness Stated Complaint: NAUSEA/WEAKNESS Time Seen by Provider: 01/17/20 01:17 History Source: Patient, Old Records - History of Present Illness Initial Comments: 01/17/20 01:30 64y M with PMH of CAD s/p stent x4, DM, HTN, HLD, BPH, PVD presenting to ED for nausea and weakness. Pt states that 30m prior to arrival he got up to use the restroom because he "wasn't feeling right". He states he felt nauseated and threw up his dinner but started to feel better afterwards. Due to his medical conditions, he called EMS to get checked out. He endorses feeling weak. Denies abdominal pain, fevers, chills, back pain, sob, chest pain, diarrhea, bloody stools, headache, numbness/tingling. His bg when this happened was in the 190s. PMD: Shiv PMH: see hpi PSH: see hpi Meds: see med rec Allergies: JESSI Social: Past History - Past Medical History Allergies/Adverse Reactions: Allergies Allergy/AdvReac Type Severity Reaction Status Date / Time JESSI Inhibitors Allergy Cough Verified 01/17/20 01:13 Home Medications: Ambulatory Orders Aspirin [ASA -] 81 mg PO DAILY 02/14/17 Metoprolol Succinate [Toprol Xl] 100 mg PO DAILY 02/14/17 Exenatide Microspheres [Bydureon] 2 mg SQ Q7D 02/16/17 Irbesartan/Hydrochlorothiazide [Irbesartan-Hctz 300-12.5 mg Tb] 1 each PO DAILY 02/16/17 Rosuvastatin [Crestor -] 40 mg PO HS 02/24/17 Canagliflozin [Invokana] 100 mg PO DAILY 05/08/17 Alprazolam [Xanax] 0.5 mg PO Q6H PRN 12/01/17 Amlodipine Besylate [Norvasc -] 10 mg PO DAILY 02/03/18 Cardiac Disorders: Yes (NE 10YRS AGO) CVA: Yes COPD: No Diabetes: Yes HTN: Yes Hypercholesterolemia: Yes - Surgical History Cardiac Surgery: Yes (carotid & cardiac stent) - Immunization History Immunization Up to Date: Yes - Psycho Social/Smoking Cessation Hx Smoking History: Never smoked Have you smoked in the past 12 months: No Hx Alcohol Use: No Drug/Substance Use Hx: No Substance Use Type: None Hx Substance Use Treatment: No Review of Systems - Review of Systems Constitutional: Yes: Weakness. No: Chills, Fever, Malaise HEENTM: No: Symptoms Reported Respiratory: No: Symptoms reported Cardiac (ROS): No: Symptoms Reported ABD/GI: Yes: Nausea, Vomiting. No: Diarrhea, Abdominal cramping : No: Symptoms Reported Musculoskeletal: No: Symptoms Reported Integumentary: No: Symptoms Reported Neurological: No: Symptoms reported *Physical Exam - Vital Signs Last Vital Signs Temp Pulse Resp BP Pulse Ox 97.9 F 77 18 124/73 94 L 01/17/20 01:11 01/17/20 01:11 01/17/20 01:11 01/17/20 01:11 01/17/20 01:11 - Physical Exam General Appearance: Yes: Nourished, Appropriately Dressed. No: Apparent Distress HEENT: positive: EOMI, ARASH, Normal ENT Inspection Neck: positive: Trachea midline, Supple Respiratory/Chest: positive: Lungs Clear, Normal Breath Sounds. negative: Crackles, Rales, Rhonchi, Stridor, Wheezing Cardiovascular: positive: Regular Rhythm, Regular Rate, S1, S2. negative: Edema , JVD, Murmur Gastrointestinal/Abdominal: positive: Normal Bowel Sounds, Soft. 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 felt better after throwing up vitals show O2 94%. rpt o2 100%. otherwise wnl ddx includes acs, gastritis, pna, gastroparesis soft abdomen on exam; does not require imaging at this time. -cbc,cmp, trop, ekg, cxr lactic added. lactic 2.6. all other labs wnl. ekg: nsr at 70bpm, no jaime or depressions, normal intervals, normal axis. flattened t wave aVF. cxr: rotated, cannot lll not properly visualized but no consolidations or infiltrates seen. given 1L fluids. after fluids, lactic went up to 2.9, negative trop. ua negative. will give another L and redraw lactic and trop. sign out to day team pending labs and dispo Discharge - Discharge Information Problems reviewed: Yes Clinical Impression/Diagnosis: Nausea, Weakness - Follow up/Referral Referrals: Rigo Carroll [Primary Care Provider] - - Patient Discharge Instructions Patient Printed Discharge Instructions: DI for Nausea -- Adult Additional Instructions: You were seen in the ER for nausea. Your blood work is normal. I recommend follow up with your doctor this week regarding your symptoms. Come back to the ER if you have hest pain, sob, or if any new or concerning symptom develops. Thank you - Post Discharge Activity
--- NOTE | 2020-01-17 01:32 | PDOC ---
Attending Attestation - Resident Resident Name: Sally Naranjo - ED Attending Attestation I have performed the following: I have examined & evaluated the patient, The case was reviewed & discussed with the resident, I agree w/resident's findings & plan - HPI HPI: 01/17/20 01:49 pt states that he has neem feeling woozy and unwell for the past 45 minutes. States that he has HTN and DM. His blood sugars have been running high and his PMD wants to start him on insulin. - Physicial Exam PE: 01/17/20 01:51 Normal exam Agree with resident exam Heart and lungs normal HEENT normal Abd soft NT ND +BS - Medical Decision Making 01/17/20 01:52 Labs EKG XR eval 01/17/20 04:00 Pt has a normal EKG; he has slightly elevated lactic acid Labs are normal, CPK and CKMB are slightly elevated 01/17/20 06:16 Pt's repeat lactic is elevated; we will likely admit. However there are no beds. Pt will get a 2nd L of NSS and then we will repeat another lactic. At the same time, pt can have a 3rd cardiac enzyme drawn. If everything is normal, he may be discharged 01/17/20 06:36 Pt will be signed out to the day team Heart Score/ECG Review - History History: Slightly suspicious - Electrocardiogram EKG: Non specific repolarization disturbance - Age Age: 45-65 - Risk Factors Risk Factors Heart Score: Yes Hx Hypertension, Yes Hx Diabetes Based on the list above the patient has:: 1-2 risk factors - Troponin Troponin: </= normal limit - Score Heart Score - Total: 3 - ECG Intrepretation Rhythm: Regular Rhythm - [place]: Normal - ECG Impressions Normal ECG: Yes Non-specific ST Elevation: No Ischemic Changes: Yes (inferior flat Ts) Bradycardia: No Torsades martita Pointes: No WPW: No
[2020-01-17 01:58] LABS: BASO % 0.3 % (0-2.0); EOS % 1.1 % (0-4.5); HEMATOCRIT 37.7 % (35.4-49); HEMOGLOBIN 12.6 GM/dL (11.7-16.9); LYMPH % 23.3 % (8-40); MCH 26.4 pg (25.7-33.7); MCHC 33.4 g/dl (32.0-35.9); MEAN CELL VOLUME 78.9 fl (80-96); MEAN PLT VOLUME 8.2 fl (7.5-11.1); MONO % 8.4 % (3.8-10.2); NEUT % 66.9 % (42.8-82.8); PLATELET COUNT 242 K/MM3 (134-434); RBC 4.78 M/mm3 (4.00-5.60); RDW 15.1 % (11.9-15.9); WHITE BLOOD COUNT 6.9 K/mm3 (4.0-10.0)
[2020-01-17 02:16] LABS: INR 0.97 (0.83-1.09); PROTHROMBIN TIME (PATIENT) 11.4 SEC (9.7-13.0)
[2020-01-17 02:26] LABS: ALBUMIN 4.1 g/dl (3.4-5.0); BILIRUBIN,TOTAL 0.5 mg/dL (0.2-1); BLOOD UREA NITROGEN 19.7 mg/dL (7-18); CALCIUM 10.1 mg/dL (8.5-10.1); CREATININE 1.1 mg/dL (0.55-1.3)
[2020-01-17 02:29] LABS: LIPASE 136 U/L (73-393)
[2020-01-17] MEDS ORDERED: SODIUM CHLORIDE 1,000 ML IV STA ×2 (02:38→06:15)
[2020-01-17 04:57] LABS: URINE APPEARANCE CLEAR; URINE BILIRUBIN NEGATIVE (NEGATIVE); URINE COLOR YELLOW; URINE GLUCOSE (UA) 3+ (NEGATIVE); URINE KETONE NEGATIVE (NEGATIVE); URINE LEUK ESTERASE NEGATIVE (NEGATIVE); URINE NITRITE NEGATIVE (NEGATIVE); URINE PROTEIN NEGATIVE (NEGATIVE); URINE UROBILINOGEN 0.2 mg/dL (0.2-1.0)
--- NOTE | 2020-01-17 07:29 | PDOC ---
*Physical Exam - Vital Signs Last Vital Signs Temp Pulse Resp BP Pulse Ox 97.9 F 77 18 124/73 94 L 01/17/20 01:11 01/17/20 01:11 01/17/20 01:11 01/17/20 01:11 01/17/20 01:11 ED Treatment Course - LABORATORY CBC & Chemistry Diagram: 01/17/20 01:50 01/17/20 01:50 - ADDITIONAL ORDERS Additional order review: Laboratory Results 01/17/20 01/17/20 01/17/20 04:30 04:20 04:20 PT with INR INR Sodium Potassium Chloride Carbon Dioxide Anion Gap BUN Creatinine Est GFR (CKD-EPI)AfAm Est GFR (CKD-EPI)NonAf Random Glucose Lactic Acid 2.9 H* Calcium Total Bilirubin AST ALT Alkaline Phosphatase Creatine Kinase Creatine Kinase Index CK-MB (CK-2) Troponin I < 0.02 Total Protein Albumin Lipase Urine Color Yellow Urine Appearance Clear Urine pH 7.0 Ur Specific [place] 1.031 Urine Protein Negative Urine Glucose (UA) 3+ H Urine Ketones Negative Urine Blood Negative Urine Nitrite Negative Urine Bilirubin Negative Urine Urobilinogen 0.2 Ur Leukocyte Esterase Negative 01/17/20 01/17/20 01/17/20 01:50 01:50 01:50 PT with INR 11.40 INR 0.97 Sodium Potassium Chloride Carbon Dioxide Anion Gap BUN Creatinine Est GFR (CKD-EPI)AfAm Est GFR (CKD-EPI)NonAf Random Glucose Lactic Acid 2.6 H* Calcium Total Bilirubin AST ALT Alkaline Phosphatase Creatine Kinase 366 H Creatine Kinase Index 1.2 CK-MB (CK-2) 4.5 H Troponin I < 0.02 Total Protein Albumin Lipase Urine Color Urine Appearance Urine pH Ur Specific [place] Urine Protein Urine Glucose (UA) Urine Ketones Urine Blood Urine Nitrite Urine Bilirubin Urine Urobilinogen Ur Leukocyte Esterase 01/17/20 01/17/20 01:50 01:50 PT with INR INR Sodium 138 Potassium 4.0 Chloride 100 Carbon Dioxide 29 Anion Gap 9 BUN 19.7 H Creatinine 1.1 Est GFR (CKD-EPI)AfAm 82.95 Est GFR (CKD-EPI)NonAf 71.57 Random Glucose 197 H Lactic Acid Calcium 10.1 Total Bilirubin 0.5 AST 18 ALT 40 Alkaline Phosphatase 108 Creatine Kinase Creatine Kinase Index CK-MB (CK-2) Troponin I < 0.02 Total Protein 8.0 Albumin 4.1 Lipase 136 Urine Color Urine Appearance Urine pH Ur Specific [place] Urine Protein Urine Glucose (UA) Urine Ketones Urine Blood Urine Nitrite Urine Bilirubin Urine Urobilinogen Ur Leukocyte Esterase 01/17/20 01:50 RBC 4.78 MCV 78.9 L MCHC 33.4 RDW 15.1 MPV 8.2 Neutrophils % 66.9 Lymphocytes % 23.3 Monocytes % 8.4 Eosinophils % 1.1 Basophils % 0.3 - Medications Given in the ED: ED Medications Discontinued Medications Generic Name Dose Route Start Last Admin Trade Name Freq PRN Reason Stop Dose Admin Sodium Chloride 1,000 mls @ 1,000 mls/hr 01/17/20 02:38 01/17/20 02:54 Normal Saline - IV 01/17/20 03:37 1,000 mls/hr ASDIR STA Administration Sodium Chloride 1,000 mls @ 1,000 mls/hr 01/17/20 06:15 01/17/20 06:27 Normal Saline - IV 01/17/20 07:14 1,000 mls/hr ASDIR STA Administration Medical Decision Making - Medical Decision Making 01/17/20 07:[address] Jaffe (Attending) and Dr. Naranjo (PGY-2) @ 0700 64 y/o male with MMP including CAD (s/p stent x4), IDDM, PVD here for nausea, weakness and 1 episode of NBNB emesis Troponin (-) x1, second Troponin pending to r/o ACS Lactic Acid trending upward (2.6 --> 2.9) - repeat Lactic pending 01/17/20 08:09 Discharge - Discharge Information Clinical Impression/Diagnosis: Nausea, Weakness - Follow up/Referral Referrals: Rigo Carroll [Primary Care Provider] - - Patient Discharge Instructions Patient Printed Discharge Instructions: DI for Nausea -- Adult Additional Instructions: You were seen in the ER for nausea. Your blood work is normal. I recommend follow up with your doctor this week regarding your symptoms. Come back to the ER if you have hest pain, sob, or if any new or concerning symptom develops. Thank you - Post Discharge Activity
--- NOTE | 2020-01-17 07:35 | PDOC ---
*Physical Exam - Vital Signs Last Vital Signs Temp Pulse Resp BP Pulse Ox 97.9 F 77 18 124/73 94 L 01/17/20 01:11 01/17/20 01:11 01/17/20 01:11 01/17/20 01:11 01/17/20 01:11 ED Treatment Course - LABORATORY CBC & Chemistry Diagram: 01/17/20 01:50 01/17/20 01:50 - ADDITIONAL ORDERS Additional order review: Laboratory Results 01/17/20 01/17/20 01/17/20 04:30 04:20 04:20 PT with INR INR Sodium Potassium Chloride Carbon Dioxide Anion Gap BUN Creatinine Est GFR (CKD-EPI)AfAm Est GFR (CKD-EPI)NonAf Random Glucose Lactic Acid 2.9 H* Calcium Total Bilirubin AST ALT Alkaline Phosphatase Creatine Kinase Creatine Kinase Index CK-MB (CK-2) Troponin I < 0.02 Total Protein Albumin Lipase Urine Color Yellow Urine Appearance Clear Urine pH 7.0 Ur Specific [place] 1.031 Urine Protein Negative Urine Glucose (UA) 3+ H Urine Ketones Negative Urine Blood Negative Urine Nitrite Negative Urine Bilirubin Negative Urine Urobilinogen 0.2 Ur Leukocyte Esterase Negative 01/17/20 01/17/20 01/17/20 01:50 01:50 01:50 PT with INR 11.40 INR 0.97 Sodium Potassium Chloride Carbon Dioxide Anion Gap BUN Creatinine Est GFR (CKD-EPI)AfAm Est GFR (CKD-EPI)NonAf Random Glucose Lactic Acid 2.6 H* Calcium Total Bilirubin AST ALT Alkaline Phosphatase Creatine Kinase 366 H Creatine Kinase Index 1.2 CK-MB (CK-2) 4.5 H Troponin I < 0.02 Total Protein Albumin Lipase Urine Color Urine Appearance Urine pH Ur Specific [place] Urine Protein Urine Glucose (UA) Urine Ketones Urine Blood Urine Nitrite Urine Bilirubin Urine Urobilinogen Ur Leukocyte Esterase 01/17/20 01/17/20 01:50 01:50 PT with INR INR Sodium 138 Potassium 4.0 Chloride 100 Carbon Dioxide 29 Anion Gap 9 BUN 19.7 H Creatinine 1.1 Est GFR (CKD-EPI)AfAm 82.95 Est GFR (CKD-EPI)NonAf 71.57 Random Glucose 197 H Lactic Acid Calcium 10.1 Total Bilirubin 0.5 AST 18 ALT 40 Alkaline Phosphatase 108 Creatine Kinase Creatine Kinase Index CK-MB (CK-2) Troponin I < 0.02 Total Protein 8.0 Albumin 4.1 Lipase 136 Urine Color Urine Appearance Urine pH Ur Specific [place] Urine Protein Urine Glucose (UA) Urine Ketones Urine Blood Urine Nitrite Urine Bilirubin Urine Urobilinogen Ur Leukocyte Esterase 01/17/20 01:50 RBC 4.78 MCV 78.9 L MCHC 33.4 RDW 15.1 MPV 8.2 Neutrophils % 66.9 Lymphocytes % 23.3 Monocytes % 8.4 Eosinophils % 1.1 Basophils % 0.3 - Medications Given in the ED: ED Medications Discontinued Medications Generic Name Dose Route Start Last Admin Trade Name Jordyq PRN Reason Stop Dose Admin Sodium Chloride 1,000 mls @ 1,000 mls/hr 01/17/20 02:38 01/17/20 02:54 Normal Saline - IV 01/17/20 03:37 1,000 mls/hr ASDIR STA Administration Sodium Chloride 1,000 mls @ 1,000 mls/hr 01/17/20 06:15 01/17/20 06:27 Normal Saline - IV 01/17/20 07:14 1,000 mls/hr ASDIR STA Administration Medical Decision Making - Medical Decision Making 01/17/20 07:34 Received sign out from Dr Naranjo. Pt seen and assessed at bedside. 64y M hx CAD s/p stent x4, DM, HTN, HLD, BPH, and PVD presenting from home for nausea, emesis x1 last PM, and generalized weakness. EKG reviewed: no e/o acute ischemia or concerning findings CXR reviewed: no acute findings Labs reviewed. 2 trops negative. Lact 2.6-->2.9 after 1L IVF. -2nd L IVF done -0730 trop/lact -food, BGM -asymptomatic since arrival -likely d/c home pending labs 01/17/20 08:04 BGM 135 01/17/20 09:50 Lact elevated 3.1 s/p 2L IVF -1L IVF -Hold metformin Admit for unknown lactic acid elevation 01/17/20 10:51 Pt signed out to admitting team by Dr Eldridge Discharge - Discharge Information Problems reviewed: Yes Clinical Impression/Diagnosis: Nausea, Weakness, Elevated lactic acid level Condition: Stable - Admission Yes - Follow up/Referral Referrals: Rigo Carroll [Primary Care Provider] - - Patient Discharge Instructions Patient Printed Discharge Instructions: DI for Nausea -- Adult Additional Instructions: You were seen in the ER for nausea. Your blood work is normal. I recommend follow up with your doctor this week regarding your symptoms. Come back to the ER if you have hest pain, sob, or if any new or concerning symptom develops. Thank you - Post Discharge Activity
[2020-01-17] MEDS ORDERED: SODIUM CHLORIDE 0.9% 500 ML INFUS.BAG IV ONE (09:37)
--- NOTE | 2020-01-17 10:36 | HP ---
CHIEF COMPLAINT: Nausea and vomiting PCP: Dr. Sierra HISTORY OF PRESENT ILLNESS: Pt. is a 64 y.o. M w/ PMHx. of CAD (s/p 4 stents), DM2, HTN, BPH and PVD presents for nausea and vomiting x 1 last night. Pt. denies any current symptoms. Pt. states 2 weeks ago he had his teeth extracted and was on 8 days of PO antibiotics which he completed. Pt. states that 1 month ago he saw his PCP and his A1c was 10.2% and he was switcvhed to Insulin however he has not been able to pick it up. He has a glucose monitor implanted to his skin. Pt. stats he is nervous about his diabetes, his being sick and not being able to go to sleep today. Pt. denies any chest pain, current nausea and vomiting, fever, chills or any difficulty breathing ER course was notable for: (1)CBC, CMP, LAx3, EKG, Trop- x 2 (2) NS x 3 L (3) Recent Travel: No PAST MEDICAL HISTORY: As above PAST SURGICAL HISTORY: Carotid Endarterctomy, Cardiac stents Social History: Smoking: Denies Alcohol: Denies Drugs: Denies Allergies JESSI Inhibitors Allergy (Verified 01/17/20 01:13) Cough HOME MEDICATIONS: Home Medications Medication Instructions Recorded Aspirin [ASA -] 81 mg PO DAILY 02/14/17 Metoprolol Succinate [Toprol Xl] 100 mg PO DAILY 02/14/17 Exenatide Microspheres [Bydureon] 2 mg SQ Q7D 02/16/17 Irbesartan/Hydrochlorothiazide 1 each PO DAILY 02/16/17 [Irbesartan-Hctz 300-12.5 mg Tb] Rosuvastatin [Crestor -] 40 mg PO HS 02/24/17 Canagliflozin [Invokana] 100 mg PO DAILY 05/08/17 Alprazolam [Xanax] 0.5 mg PO Q6H PRN 12/01/17 Amlodipine Besylate [Norvasc -] 10 mg PO DAILY 02/03/18 REVIEW OF SYSTEMS As above PHYSICAL EXAMINATION Vital Signs - 24 hr 01/17/20 01:11 Temperature 97.9 F Pulse Rate 77 Respiratory 18 Rate Blood Pressure 124/73 O2 Sat by Pulse 94 L Oximetry (%) GENERAL: Awake, alert, and fully oriented, in no acute distress. HEAD: Normal with no signs of trauma. EYES: Sclera anicteric, conjunctiva clear. EARS, NOSE, THROAT: Ears normal, nares patent, oropharynx clear without exudates. Moist mucous membranes. NECK: Normal range of motion, supple without lymphadenopathy, JVD, or masses. LUNGS: Breath sounds equal, clear to auscultation bilaterally. No wheezes, and no crackles. No accessory muscle use. HEART: Tachycardic, regular rate and rhythm, normal S1 and S2 without murmur ABDOMEN: Soft, nontender, not distended, normoactive bowel sounds, no guarding, no rebound, no masses. MUSCULOSKELETAL: Normal range of motion at all joints. No bony deformities or tenderness. No CVA tenderness. UPPER EXTREMITIES: 2+ radial pulses, warm, well-perfused. No cyanosis. No clubbing. No peripheral edema. LUE glucose monitor LOWER EXTREMITIES: 2+ dorsal pedal pulses, warm, well-perfused. No calf tenderness. No peripheral edema. NEUROLOGICAL: Normal speech. PSYCHIATRIC: Cooperative. Good eye contact. Anxious, tearful SKIN: Warm, dry, normal turgor Laboratory Results - last 24 hr 01/17/20 01/17/20 01/17/20 01:50 01:50 01:50 WBC 6.9 RBC 4.78 Hgb 12.6 Hct 37.7 MCV 78.9 L MCH 26.4 MCHC 33.4 RDW 15.1 Plt Count 242 MPV 8.2 Absolute Neuts (auto) 4.6 Neutrophils % 66.9 Lymphocytes % 23.3 Monocytes % 8.4 Eosinophils % 1.1 Basophils % 0.3 Nucleated RBC % 0 PT with INR INR Sodium 138 Potassium 4.0 Chloride 100 Carbon Dioxide 29 Anion Gap 9 BUN 19.7 H Creatinine 1.1 Est GFR (CKD-EPI)AfAm 82.95 Est GFR (CKD-EPI)NonAf 71.57 POC Glucometer Random Glucose 197 H Lactic Acid Calcium 10.1 Total Bilirubin 0.5 AST 18 ALT 40 Alkaline Phosphatase 108 Creatine Kinase Creatine Kinase Index CK-MB (CK-2) Troponin I < 0.02 Total Protein 8.0 Albumin 4.1 Lipase 136 Urine Color Urine Appearance Urine pH Ur Specific [place] Urine Protein Urine Glucose (UA) Urine Ketones Urine Blood Urine Nitrite Urine Bilirubin Urine Urobilinogen Ur Leukocyte Esterase 01/17/20 01/17/2020 01:50 01:50 01:50 WBC RBC Hgb Hct MCV MCH MCHC RDW Plt Count MPV Absolute Neuts (auto) Neutrophils % Lymphocytes % Monocytes % Eosinophils % Basophils % Nucleated RBC % PT with INR 11.40 INR 0.97 Sodium Potassium Chloride Carbon Dioxide Anion Gap BUN Creatinine Est GFR (CKD-EPI)AfAm Est GFR (CKD-EPI)NonAf POC Glucometer Random Glucose Lactic Acid 2.6 H* Calcium Total Bilirubin AST ALT Alkaline Phosphatase Creatine Kinase 366 H Creatine Kinase Index 1.2 CK-MB (CK-2) 4.5 H Troponin I < 0.02 Total Protein Albumin Lipase Urine Color Urine Appearance Urine pH Ur Specific [place] Urine Protein Urine Glucose (UA) Urine Ketones Urine Blood Urine Nitrite Urine Bilirubin Urine Urobilinogen Ur Leukocyte Esterase 01/17/20 01/17/20 01/17/20 04:20 04:20 04:30 WBC RBC Hgb Hct MCV MCH MCHC RDW Plt Count MPV Absolute Neuts (auto) Neutrophils % Lymphocytes % Monocytes % Eosinophils % Basophils % Nucleated RBC % PT with INR INR Sodium Potassium Chloride Carbon Dioxide Anion Gap BUN Creatinine Est GFR (CKD-EPI)AfAm Est GFR (CKD-EPI)NonAf POC Glucometer Random Glucose Lactic Acid 2.9 H* Calcium Total Bilirubin AST ALT Alkaline Phosphatase Creatine Kinase Creatine Kinase Index CK-MB (CK-2) Troponin I < 0.02 Total Protein Albumin Lipase Urine Color Yellow Urine Appearance Clear Urine pH 7.0 Ur Specific [place] 1.031 Urine Protein Negative Urine Glucose (UA) 3+ H Urine Ketones Negative Urine Blood Negative Urine Nitrite Negative Urine Bilirubin Negative Urine Urobilinogen 0.2 Ur Leukocyte Esterase Negative 01/17/20 01/17/20 01/17/20 07:30 07:30 07:54 WBC RBC Hgb Hct MCV MCH MCHC RDW Plt Count MPV Absolute Neuts (auto) Neutrophils % Lymphocytes % Monocytes % Eosinophils % Basophils % Nucleated RBC % PT with INR INR Sodium Potassium Chloride Carbon Dioxide Anion Gap BUN Creatinine Est GFR (CKD-EPI)AfAm Est GFR (CKD-EPI)NonAf POC Glucometer 135 Random Glucose Lactic Acid 3.1 H* Calcium Total Bilirubin AST ALT Alkaline Phosphatase Creatine Kinase Creatine Kinase Index CK-MB (CK-2) Troponin I < 0.02 Total Protein Albumin Lipase Urine Color Urine Appearance Urine pH Ur Specific [place] Urine Protein Urine Glucose (UA) Urine Ketones Urine Blood Urine Nitrite Urine Bilirubin Urine Urobilinogen Ur Leukocyte Esterase ASSESSMENT/PLAN: Pt. is a 64 y.o. M w/ PMHx. of CAD (s/p 4 stents), DM2, HTN, BPH and PVD presents for nausea and vomiting x 1 last night. Admitted for Lactic Acidosis? #Lactic Acidosis- resolved s/p 3L IVF LA: 2.6-->2.9-->3.1-->2.0 #CAD #HTN #DM2 #BPH #PVD c/w home medication Except Metformin ISS ACHS BGM ACHS A1c: 10.2% #FEN NS @ 200 for 1 bag monitor electrolytes and replete as needed NA sodium controlled diet #DVT Ppx. Early Ambulation, anticipate discharge in 30min Visit type - Emergency Visit Emergency Visit: Yes ED Registration Date: 01/17/20 Care time: The patient presented to the Emergency Department on the above date and was hospitalized for further evaluation of their emergent condition. - New Patient This patient is new to me today: Yes Date on this admission: 01/17/20 - Critical Care Critical Care patient: No ATTENDING PHYSICIAN STATEMENT I saw and evaluated the patient. I reviewed the resident's note and discussed the case with the resident. I agree with the resident's findings and plan as documented. SUBJECTIVE: OBJECTIVE: ASSESSMENT AND PLAN:
--- NOTE | 2020-01-17 10:37 | PDOC ---
*Physical Exam - Vital Signs Last Vital Signs Temp Pulse Resp BP Pulse Ox 97.9 F 77 18 124/73 94 L 01/17/20 01:11 01/17/20 01:11 01/17/20 01:11 01/17/20 01:11 01/17/20 01:11 ED Treatment Course - LABORATORY CBC & Chemistry Diagram: 01/17/20 01:50 01/17/20 01:50 - ADDITIONAL ORDERS Additional order review: Laboratory Results 01/17/20 01/17/20 01/17/20 07:54 07:30 07:30 WBC RBC Hgb Hct MCV MCH MCHC RDW Plt Count MPV Absolute Neuts (auto) Neutrophils % Lymphocytes % Monocytes % Eosinophils % Basophils % Nucleated RBC % PT with INR INR Sodium Potassium Chloride Carbon Dioxide Anion Gap BUN Creatinine Est GFR (CKD-EPI)AfAm Est GFR (CKD-EPI)NonAf POC Glucometer 135 Random Glucose Lactic Acid 3.1 H* Calcium Total Bilirubin AST ALT Alkaline Phosphatase Creatine Kinase Creatine Kinase Index CK-MB (CK-2) Troponin I < 0.02 Total Protein Albumin Lipase Urine Color Urine Appearance Urine pH Ur Specific [place] Urine Protein Urine Glucose (UA) Urine Ketones Urine Blood Urine Nitrite Urine Bilirubin Urine Urobilinogen Ur Leukocyte Esterase 01/17/20 01/17/20 01/17/20 04:30 04:20 04:20 WBC RBC Hgb Hct MCV MCH MCHC RDW Plt Count MPV Absolute Neuts (auto) Neutrophils % Lymphocytes % Monocytes % Eosinophils % Basophils % Nucleated RBC % PT with INR INR Sodium Potassium Chloride Carbon Dioxide Anion Gap BUN Creatinine Est GFR (CKD-EPI)AfAm Est GFR (CKD-EPI)NonAf POC Glucometer Random Glucose Lactic Acid 2.9 H* Calcium Total Bilirubin AST ALT Alkaline Phosphatase Creatine Kinase Creatine Kinase Index CK-MB (CK-2) Troponin I < 0.02 Total Protein Albumin Lipase Urine Color Yellow Urine Appearance Clear Urine pH 7.0 Ur Specific [place] 1.031 Urine Protein Negative Urine Glucose (UA) 3+ H Urine Ketones Negative Urine Blood Negative Urine Nitrite Negative Urine Bilirubin Negative Urine Urobilinogen 0.2 Ur Leukocyte Esterase Negative 01/17/20 01/17/20 01/17/20 01:50 01:50 01:50 WBC RBC Hgb Hct MCV MCH MCHC RDW Plt Count MPV Absolute Neuts (auto) Neutrophils % Lymphocytes % Monocytes % Eosinophils % Basophils % Nucleated RBC % PT with INR 11.40 INR 0.97 Sodium Potassium Chloride Carbon Dioxide Anion Gap BUN Creatinine Est GFR (CKD-EPI)AfAm Est GFR (CKD-EPI)NonAf POC Glucometer Random Glucose Lactic Acid 2.6 H* Calcium Total Bilirubin AST ALT Alkaline Phosphatase Creatine Kinase 366 H Creatine Kinase Index 1.2 CK-MB (CK-2) 4.5 H Troponin I < 0.02 Total Protein Albumin Lipase Urine Color Urine Appearance Urine pH Ur Specific [place] Urine Protein Urine Glucose (UA) Urine Ketones Urine Blood Urine Nitrite Urine Bilirubin Urine Urobilinogen Ur Leukocyte Esterase 01/17/20 01/17/20 01/17/20 01:50 01:50 01:50 WBC 6.9 RBC 4.78 Hgb 12.6 Hct 37.7 MCV 78.9 L MCH 26.4 MCHC 33.4 RDW 15.1 Plt Count 242 MPV 8.2 Absolute Neuts (auto) 4.6 Neutrophils % 66.9 Lymphocytes % 23.3 Monocytes % 8.4 Eosinophils % 1.1 Basophils % 0.3 Nucleated RBC % 0 PT with INR INR Sodium 138 Potassium 4.0 Chloride 100 Carbon Dioxide 29 Anion Gap 9 BUN 19.7 H Creatinine 1.1 Est GFR (CKD-EPI)AfAm 82.95 Est GFR (CKD-EPI)NonAf 71.57 POC Glucometer Random Glucose 197 H Lactic Acid Calcium 10.1 Total Bilirubin 0.5 AST 18 ALT 40 Alkaline Phosphatase 108 Creatine Kinase Creatine Kinase Index CK-MB (CK-2) Troponin I < 0.02 Total Protein 8.0 Albumin 4.1 Lipase 136 Urine Color Urine Appearance Urine pH Ur Specific [place] Urine Protein Urine Glucose (UA) Urine Ketones Urine Blood Urine Nitrite Urine Bilirubin Urine Urobilinogen Ur Leukocyte Esterase 01/17/20 01/17/20 07:54 01:50 RBC 4.78 MCV 78.9 L MCHC 33.4 RDW 15.1 MPV 8.2 Neutrophils % 66.9 Lymphocytes % 23.3 Monocytes % 8.4 Eosinophils % 1.1 Basophils % 0.3 POC Glucometer 135 - Medications Given in the ED: ED Medications Discontinued Medications Generic Name Dose Route Start Last Admin Trade Name Freq PRN Reason Stop Dose Admin Sodium Chloride 1,000 mls @ 1,000 mls/hr 01/17/20 02:38 01/17/20 02:54 Normal Saline - IV 01/17/20 03:37 1,000 mls/hr ASDIR STA Administration Sodium Chloride 1,000 mls @ 1,000 mls/hr 01/17/20 06:15 01/17/20 06:27 Normal Saline - IV 01/17/20 07:14 1,000 mls/hr ASDIR STA Administration Medical Decision Making - Medical Decision Making 01/17/20 10:34 64 yo male h/o dm htn cad here with c/o generalized malaise, weakness. signed out to me by overnight team. assumed care of the patient at 7 am. pt evaluatd for weakness including cardiac workup and infectious workup. found to hvae increased lactic acid. hydrated with 3L NS lactate continues to rise to 3.4 possible due to medication SE pt on metformin. abd exam on my repeat examination nontender. trop negative. cxr reviewed no infectious proces. d/w DR Robb, will observe, , lactic acisos. continued hydration. Discharge - Discharge Information Problems reviewed: Yes Clinical Impression/Diagnosis: Nausea, Weakness, Elevated lactic acid level Condition: Stable Disposition: HOME - Admission Yes - Follow up/Referral - Patient Discharge Instructions - Post Discharge Activity
[2020-01-17] MEDS ORDERED: SODIUM CHLORIDE 1,000 ML IV SCH (10:45)
[2020-01-17] MEDS ORDERED: INSULIN SLIDING SCALE (NOVOLOG) 1 VIAL SQ SCH (11:00)
[2020-01-17 12:09] VITALS: PULSE 96; TEMP 97.8
--- NOTE | 2020-01-17 16:14 | PN ---
Teaching Attending Note Name of Resident: Sherif Kuhn ATTENDING PHYSICIAN STATEMENT I saw and evaluated the patient. I reviewed the resident's note and discussed the case with the resident. I agree with the resident's findings and plan as documented. SUBJECTIVE: Patient is a 64yom with PMhx of CAD (s/p 4 stents), DM2, HTN, BPH and PVD presents for nausea and vomiting x 1 last night. Patient stated that he had hemoglobin A1c of 10, as per patient has a insulin pump that he will start using once her gets discharged the hospital. Patient stated that he felt nauseas and did not feel well, came to Ed for further w/u. OBJECTIVE: Vital Signs Temperature 97.8 F 01/17/20 12:08 Pulse Rate 96 H 01/17/20 12:08 Respiratory Rate 17 01/17/20 12:08 Blood Pressure 152/94 01/17/20 12:08 O2 Sat by Pulse Oximetry (%) 100 01/17/20 12:08 GENERAL: The patient is awake, alert, and fully oriented, in no acute distress. HEAD: Normal with no signs of trauma. EYES: PERRL, extraocular movements intact, sclera anicteric, conjunctiva clear. ENT: Ears normal, oropharynx clear without exudates, moist mucous membranes. NECK: Trachea midline, full range of motion, supple. LUNGS: Breath sounds equal, clear to auscultation bilaterally, no wheezes, no crackles, no accessory muscle use. HEART: Regular rate and rhythm, S1, S2 without murmur, rub or gallop. ABDOMEN: Soft, nontender, nondistended, normoactive bowel sounds, no guarding, no rebound, no hepatosplenomegaly, no masses. EXTREMITIES: 2+ pulses, warm, well-perfused, no edema. NEUROLOGICAL: Cranial nerves II through XII grossly intact. Normal speech, gait not observed. PSYCH: Normal mood, normal affect. SKIN: Warm, dry, normal turgor, no rashes or lesions noted CBCD WBC 6.9 K/mm3 (4.0-10.0) 01/17/20 01:50 RBC 4.78 M/mm3 (4.00-5.60) 01/17/20 01:50 Hgb 12.6 GM/dL (11.7-16.9) 01/17/20 01:50 Hct 37.7 % (35.4-49) 01/17/20 01:50 MCV 78.9 fl (80-96) L 01/17/20 01:50 MCHC 33.4 g/dl (32.0-35.9) 01/17/20 01:50 RDW 15.1 % (11.9-15.9) 01/17/20 01:50 Plt Count 242 K/MM3 (134-434) 01/17/20 01:50 MPV 8.2 fl (7.5-11.1) 01/17/20 01:50 CMP Sodium 138 mmol/L (136-145) 01/17/20 01:50 Potassium 4.0 mmol/L (3.5-5.1) 01/17/20 01:50 Chloride 100 mmol/L (98-107) 01/17/20 01:50 Carbon Dioxide 29 mmol/L (21-32) 01/17/20 01:50 Anion Gap 9 MMOL/L (8-16) 01/17/20 01:50 BUN 19.7 mg/dL (7-18) H 01/17/20 01:50 Creatinine 1.1 mg/dL (0.55-1.3) 01/17/20 01:50 Random Glucose 197 mg/dL (74-106) H 01/17/20 01:50 Calcium 10.1 mg/dL (8.5-10.1) 01/17/20 01:50 Total Bilirubin 0.5 mg/dL (0.2-1) 01/17/20 01:50 AST 18 U/L (15-37) 01/17/20 01:50 ALT 40 U/L (13-61) 01/17/20 01:50 Alkaline Phosphatase 108 U/L (45-117) 01/17/20 01:50 Total Protein 8.0 g/dl (6.4-8.2) 01/17/20 01:50 Albumin 4.1 g/dl (3.4-5.0) 01/17/20 01:50 CARDIAC ENZYMES Creatine Kinase 366 U/L (26-308) H 01/17/20 01:50 Troponin I < 0.02 ng/ml (0.00-0.05) 01/17/20 07:30 Current Medications Generic Name Dose Route Start Last Admin Trade Name Freq PRN Reason Stop Dose Admin Insulin Aspart 1 vial 01/17/20 11:00 01/17/20 11:20 Novolog Vial Sliding Scale - SQ Not Given ACHS [facility] Protocol ASSESSMENT AND PLAN: Pt. is a 64yom with PMHx. of CAD (s/p 4 stents), DM2, HTN, BPH and PVD presents for nausea and vomiting x 1 last night. placed is on observation for having lactic acidosis possible being on Metformin/nausea or vomiting. Discussed with The ED.Attending who took over the patient this morning , who is worried that the lactic acid level is trending up since patient is on Metformin. # Acute Lactic Acidosis- s/p 3 liter of IV fluid, ordered another liter and checked the level again was 2.0. no fever or signs of any sepsis , will discharge the patient home. 2.6-->2.9-->3.1-->2.0 #CAD #HTN #DM2: A1c: 10.2% , patient has a insulin pump, given instructions by his security police officer , will start the pump after his discharge , discontinue metformin #BPH #PVD continue home meds. ca patient home.
--- NOTE | 2020-01-17 16:37 | DS ---
Physical Exam: SUBJECTIVE: Patient seen and examined. No new complaints. Pt. states that after having his teeth removed his diet was not controlled be cause he was not advised to take soft foods WITHOUT sugar. Pt. was eating Jello and Flan for his diet. Pt. also endorsed stress at home because of his medical condition in addition to his 's medical problems. Pt. states that he follows closely with his drop wirer for his peripheral neuropathy. Please refer to H&P for initial presentation complaints. OBJECTIVE: Vital Signs Period Temp Pulse Resp BP Sys/Armijo Pulse Ox Last 24 Hr 97.8 F-98.2 F 77-96 17-18 124-152/73-94 94-100 PHYSICAL EXAM Same as H&P RLE callous on plantar surface of R. foot. No open wounds or lesions. LABS Laboratory Results - last 24 hr 01/17/20 01/17/20 01/17/20 01:50 01:50 01:50 WBC 6.9 RBC 4.78 Hgb 12.6 Hct 37.7 MCV 78.9 L MCH 26.4 MCHC 33.4 RDW 15.1 Plt Count 242 MPV 8.2 Absolute Neuts (auto) 4.6 Neutrophils % 66.9 Lymphocytes % 23.3 Monocytes % 8.4 Eosinophils % 1.1 Basophils % 0.3 Nucleated RBC % 0 PT with INR INR Sodium 138 Potassium 4.0 Chloride 100 Carbon Dioxide 29 Anion Gap 9 BUN 19.7 H Creatinine 1.1 Est GFR (CKD-EPI)AfAm 82.95 Est GFR (CKD-EPI)NonAf 71.57 POC Glucometer Random Glucose 197 H Lactic Acid Calcium 10.1 Total Bilirubin 0.5 AST 18 ALT 40 Alkaline Phosphatase 108 Creatine Kinase Creatine Kinase Index CK-MB (CK-2) Troponin I < 0.02 Total Protein 8.0 Albumin 4.1 Lipase 136 Urine Color Urine Appearance Urine pH Ur Specific [place] Urine Protein Urine Glucose (UA) Urine Ketones Urine Blood Urine Nitrite Urine Bilirubin Urine Urobilinogen Ur Leukocyte Esterase 01/17/20 01/17/20 01/17/20 01:50 01:50 01:50 WBC RBC Hgb Hct MCV MCH MCHC RDW Plt Count MPV Absolute Neuts (auto) Neutrophils % Lymphocytes % Monocytes % Eosinophils % Basophils % Nucleated RBC % PT with INR 11.40 INR 0.97 Sodium Potassium Chloride Carbon Dioxide Anion Gap BUN Creatinine Est GFR (CKD-EPI)AfAm Est GFR (CKD-EPI)NonAf POC Glucometer Random Glucose Lactic Acid 2.6 H* Calcium Total Bilirubin AST ALT Alkaline Phosphatase Creatine Kinase 366 H Creatine Kinase Index 1.2 CK-MB (CK-2) 4.5 H Troponin I < 0.02 Total Protein Albumin Lipase Urine Color Urine Appearance Urine pH Ur Specific [place] Urine Protein Urine Glucose (UA) Urine Ketones Urine Blood Urine Nitrite Urine Bilirubin Urine Urobilinogen Ur Leukocyte Esterase 01/17/20 01/17/20 01/17/20 04:20 04:20 04:30 WBC RBC Hgb Hct MCV MCH MCHC RDW Plt Count MPV Absolute Neuts (auto) Neutrophils % Lymphocytes % Monocytes % Eosinophils % Basophils % Nucleated RBC % PT with INR INR Sodium Potassium Chloride Carbon Dioxide Anion Gap BUN Creatinine Est GFR (CKD-EPI)AfAm Est GFR (CKD-EPI)NonAf POC Glucometer Random Glucose Lactic Acid 2.9 H* Calcium Total Bilirubin AST ALT Alkaline Phosphatase Creatine Kinase Creatine Kinase Index CK-MB (CK-2) Troponin I < 0.02 Total Protein Albumin Lipase Urine Color Yellow Urine Appearance Clear Urine pH 7.0 Ur Specific [place] 1.031 Urine Protein Negative Urine Glucose (UA) 3+ H Urine Ketones Negative Urine Blood Negative Urine Nitrite Negative Urine Bilirubin Negative Urine Urobilinogen 0.2 Ur Leukocyte Esterase Negative 01/17/20 01/17/20 01/17/20 07:30 07:30 07:54 WBC RBC Hgb Hct MCV MCH MCHC RDW Plt Count MPV Absolute Neuts (auto) Neutrophils % Lymphocytes % Monocytes % Eosinophils % Basophils % Nucleated RBC % PT with INR INR Sodium Potassium Chloride Carbon Dioxide Anion Gap BUN Creatinine Est GFR (CKD-EPI)AfAm Est GFR (CKD-EPI)NonAf POC Glucometer 135 Random Glucose Lactic Acid 3.1 H* Calcium Total Bilirubin AST ALT Alkaline Phosphatase Creatine Kinase Creatine Kinase Index CK-MB (CK-2) Troponin I < 0.02 Total Protein Albumin Lipase Urine Color Urine Appearance Urine pH Ur Specific [place] Urine Protein Urine Glucose (UA) Urine Ketones Urine Blood Urine Nitrite Urine Bilirubin Urine Urobilinogen Ur Leukocyte Esterase 01/17/20 01/17/20 11:19 11:32 WBC RBC Hgb Hct MCV MCH MCHC RDW Plt Count MPV Absolute Neuts (auto) Neutrophils % Lymphocytes % Monocytes % Eosinophils % Basophils % Nucleated RBC % PT with INR INR Sodium Potassium Chloride Carbon Dioxide Anion Gap BUN Creatinine Est GFR (CKD-EPI)AfAm Est GFR (CKD-EPI)NonAf POC Glucometer 128 Random Glucose Lactic Acid 2.0 Calcium Total Bilirubin AST ALT Alkaline Phosphatase Creatine Kinase Creatine Kinase Index CK-MB (CK-2) Troponin I Total Protein Albumin Lipase Urine Color Urine Appearance Urine pH Ur Specific [place] Urine Protein Urine Glucose (UA) Urine Ketones Urine Blood Urine Nitrite Urine Bilirubin Urine Urobilinogen Ur Leukocyte Esterase HOSPITAL COURSE: Date of Admission:01/17/20 Date of Discharge: 01/17/20 Pt. is a 64 y.o. M w/ PMHx. of CAD (s/p 4 stents), DM2, HTN, BPH and PVD presents for nausea and vomiting x 1 last night. Pt. was observed for elevated lactate of 2.6, which increased to 3.1 despite 2 L of NS. Pt. received an additional 2 L of NS. Repeat lactate was 2.0. chest X-ray was negative for acute pathology. Pt. denied any further complaints. Metformin was discontinued as Pt. 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 did not start his insulin pump and continued taking Metformin. Medication adjustments and follow up were as detailed below. Hospital course, discussed and agreed upon with Pt. and medical staff. Minutes to complete discharge: 35 Discharge Summary Problems reviewed: Yes Reason For Visit: INCREASED LACTIC ACID LEVEL Current Active Problems Elevated lactic acid level (Acute) Nausea (Acute) Weakness (Acute) Condition: Stable - Instructions Diet, Activity, Other Instructions: You came to the ED for nausea and vomiting. You were found to have elevated lactic acid. You were given IV fluids and it corrected. Please STOP taking Metformin and start taking your Insulin as prescribed by your Primary Care Doctor. Please follow up with your PCP, Dr. Sierra within 1 week to discuss starting Insulin. Please return to the ED if you are having worsening shortness of breath, chest pain, pain on urination, or any concerning symptoms. Referrals: Rigo Carroll [Primary Care Provider] - 1 Week Disposition: HOME - Home Medications Comprehensive Discharge Medication List: Ambulatory Orders Aspirin [ASA -] 81 mg PO DAILY 02/14/17 Metoprolol Succinate [Toprol Xl] 100 mg PO DAILY 02/14/17 Exenatide Microspheres [Bydureon] 2 mg SQ Q7D 02/16/17 Irbesartan/Hydrochlorothiazide [Irbesartan-Hctz 300-12.5 mg Tb] 1 each PO DAILY 02/16/17 Rosuvastatin [Crestor -] 40 mg PO HS 02/24/17 Canagliflozin [Invokana] 100 mg PO DAILY 05/08/17 Alprazolam [Xanax] 0.5 mg PO Q6H PRN 12/01/17 Amlodipine Besylate [Norvasc -] 10 mg PO DAILY 02/03/18 Gabapentin 300 mg PO BID 01/17/20 Ranolazine [Ranexa] 500 mg PO BID 01/17/20 This patient is new to me today: Yes Date on this admission: 01/17/20 Emergency Visit: Yes ED Registration Date: 01/17/20 Care time: The patient presented to the Emergency Department on the above date and was hospitalized for further evaluation of their emergent condition. Critical Care patient: No - Discharge Referral [facility]erred to [facility] Yes Physician Referral: Nico Worley MD ([facility]) ATTENDING PHYSICIAN STATEMENT I saw and evaluated the patient. I reviewed the resident's note and discussed the case with the resident. I agree with the resident's findings and plan as documented. SUBJECTIVE: OBJECTIVE: ASSESSMENT AND PLAN:
[2020-01-17 16:39] VITALS: BP 134/70
--- NOTE | 2020-01-18 10:14 | EKG ---
Test Reason : Blood Pressure : / mmHG Vent. Rate : 070 BPM Atrial Rate : 070 BPM P-R Int : 176 ms QRS Dur : 088 ms QT Int : 404 ms P-R-T Axes : 043 013 023 degrees QTc Int : 436 ms NORMAL SINUS RHYTHM INFERIOR INFARCT , AGE UNDETERMINED ABNORMAL ECG WHEN COMPARED WITH ECG OF 18-DEC-2019 07:51, INFERIOR INFARCT IS NOW PRESENT Confirmed by Nikole Cevallos ([id number]) on 01/18/2020 10:14:44 AM Referred By: Confirmed By:Nikole Cevallos
== END 2020-01-17 16:41 | disposition home or self-care (01) ==
LOC: JER 01:08 → INTOOBSV 09:51 → JERBED 09:51 → J6S 11:38
PROVIDERS: ADMIT Internal Medicine; ATTEND Internal Medicine
PROC: 3E033GC Introduction of Other Therapeutic Substance into Peripheral Vein, Percutaneous Approach (ICD-10-PCS; principal; 2020-01-17)
PROC: 3E0337Z Introduction of Electrolytic and Water Balance Substance into Peripheral Vein, Percutaneous Approach (ICD-10-PCS; 2020-01-17)
DX: R53.1 Weakness (principal); R11.0 Nausea; E87.2 Acidosis; I10 Essential (primary) hypertension; E78.5 Hyperlipidemia, unspecified; E11.9 Type 2 diabetes mellitus without complications; N40.0 Benign prostatic hyperplasia without lower urinary tract symptoms; I25.10 Atherosclerotic heart disease of native coronary artery without angina pectoris; I73.9 Peripheral vascular disease, unspecified; I25.2 Old myocardial infarction; Z95.5 Presence of coronary angioplasty implant and graft; Z88.8 Allergy status to other drugs, medicaments and biological substances; Z79.82 Long term (current) use of aspirin; Z96.41 Presence of insulin pump (external) (internal); Z79.4 Long term (current) use of insulin
CPT/HCPCS: 36415; 71045-TC-FY; 80053; 81003; 82550; 82553; 82962; 83605; 83690; 84484; 85025; 85610; 87086; 93005; 93010; 96361; 96374; 99285-25; G0378; J7030

== ENCOUNTER 2021-01-01 08:34 | Inpatient (IN) | payer OTHER ==
[2021-01-01 09:41] LABS: BASO % 0.3 % (0-2.0); EOS % 0.7 % (0-4.5); HEMATOCRIT 36.3 % (35.4-49); HEMOGLOBIN 12.1 GM/dL (11.7-16.9); LYMPH % 11.6 % (8-40); MCH 25.8 pg (25.7-33.7); MCHC 33.4 g/dl (32.0-35.9); MEAN CELL VOLUME 77.2 fl (80-96); MEAN PLT VOLUME 7.7 fl (7.5-11.1); MONO % 8.3 % (3.8-10.2); NEUT % 79.1 % (42.8-82.8); PLATELET COUNT 344 K/MM3 (134-434); RDW 15.5 % (11.9-15.9); WHITE BLOOD COUNT 4.5 K/mm3 (4.0-10.0)
[2021-01-01 09:47] LABS: INR 1.14 (0.83-1.09); PROTHROMBIN TIME (PATIENT) 13.7 SEC (9.7-13.0)
[2021-01-01 09:50] LABS: ACTIVATED PTT 25.6 SECONDS (25.2-36.5)
[2021-01-01 09:59] LABS: CHLORIDE 102 mmol/L (98-107); POTASSIUM 3.7 mmol/L (3.5-5.1); SODIUM 138 mmol/L (136-145)
[2021-01-01 10:03] LABS: CALCIUM 8.6 mg/dL (8.5-10.1)
[2021-01-01 10:04] LABS: ALBUMIN 2.8 g/dl (3.4-5.0); ANION GAP 10 MMOL/L (8-16); CO2 25 mmol/L (21-32); GLUCOSE,RANDOM 217 mg/dL (74-106)
[2021-01-01 10:05] LABS: CREATININE 0.9 mg/dL (0.55-1.3); SGOT/AST 29 U/L (15-37); SGPT/ALT 42 U/L (13-61)
[2021-01-01 10:06] LABS: BILIRUBIN,TOTAL 0.5 mg/dL (0.2-1)
[2021-01-01 10:07] LABS: TOT PROT 7.1 g/dl (6.4-8.2)
[2021-01-01 10:09] LABS: ALK PHOS 108 U/L (45-117)
[2021-01-01] MEDS ORDERED: DEXAMETHASONE SOD PHOSPHATE 4 MG/1 ML VIAL IVPUSH ONE (10:29)
[2021-01-01 10:32] LABS: ERYTHROCYTE SEDIMENTATION RATE 85 mm/hr (0-20)
[2021-01-01] MEDS ORDERED: LACTATED RINGERS SOLUTION 1000 ML INFUS.BAG IV ONE (11:01)
[2021-01-01] MEDS ORDERED: DEXAMETHASONE SOD PHOSPHATE 10 MG/1 ML VIAL ONE (11:01)
[2021-01-01] MEDS ORDERED: ACETAMINOPHEN 325 MG TABLET (FP) PO PRN (11:55)
[2021-01-01 12:47] VITALS: BMI 28.8
[2021-01-01] MEDS: ENOXAPARIN NA (PORCINE) 40 MG/0.4 ML DISP.SYRIN SQ SCH (12:52)
[2021-01-01] MEDS ORDERED: ALPRAZolam 0.25 MG TABLET PO PRN (13:17)
[2021-01-01] MEDS: ASPIRIN 81 MG CHEWABLE TABLETS PO SCH ×2 (14:09→16:30)
[2021-01-01] MEDS: amLODIPine BESYLATE 10 MG TABLET (FP) PO SCH (14:09)
[2021-01-01] MEDS: INSULIN SLIDING SCALE (NOVOLOG) 1 VIAL SQ SCH ×2 (17:11→21:19)
[2021-01-01] MEDS: ROSUVASTATIN CA 20 MG TABLET (FP) PO SCH (21:14)
[2021-01-01] MEDS: RANOLAZINE E.R. 500 MG TABLET (FP) PO SCH (21:14)
[2021-01-01] MEDS: ASCORBIC ACID 500 MG TABLET (FP) PO SCH (21:14)
[2021-01-02] MEDS: INSULIN SLIDING SCALE (NOVOLOG) 1 VIAL SQ SCH ×4 (06:38→21:41)
[2021-01-02 07:50] LABS: HEMATOCRIT 33.6 % (35.4-49); HEMOGLOBIN 11.6 GM/dL (11.7-16.9); MCH 26.1 pg (25.7-33.7); MCHC 34.6 g/dl (32.0-35.9); MEAN CELL VOLUME 75.4 fl (80-96); MEAN PLT VOLUME 7.5 fl (7.5-11.1); PLATELET COUNT 394 K/MM3 (134-434); RBC 4.45 M/mm3 (4.00-5.60); RDW 15.1 % (11.9-15.9); WHITE BLOOD COUNT 3.4 K/mm3 (4.0-10.0)
[2021-01-02 08:02] LABS: POTASSIUM 3.8 mmol/L (3.5-5.1)
[2021-01-02 08:15] LABS: BLOOD UREA NITROGEN 14.4 mg/dL (7-18)
[2021-01-02 08:17] LABS: CALCIUM 8.8 mg/dL (8.5-10.1); CREATININE 0.8 mg/dL (0.55-1.3); PHOSPHOROUS 2.6 mg/dL (2.5-4.9)
[2021-01-02 08:18] LABS: MAGNESIUM 2.4 mg/dL (1.8-2.4)
[2021-01-02] MEDS: amLODIPine BESYLATE 10 MG TABLET (FP) PO SCH (09:15)
[2021-01-02] MEDS: ASPIRIN 81 MG CHEWABLE TABLETS PO SCH (09:15)
[2021-01-02] MEDS: RANOLAZINE E.R. 500 MG TABLET (FP) PO SCH ×2 (09:16→21:35)
[2021-01-02] MEDS: ZINC SULFATE 220 MG CAPSULE (FP) PO SCH (09:16)
[2021-01-02] MEDS: CHOLECALCIFEROL (VIT D3) 1,000 UNIT (25 MCG) TABLET PO SCH (09:17)
[2021-01-02] MEDS: ENOXAPARIN NA (PORCINE) 40 MG/0.4 ML DISP.SYRIN SQ SCH (09:17)
[2021-01-02] MEDS: ASCORBIC ACID 500 MG TABLET (FP) PO SCH ×2 (09:17→21:35)
[2021-01-02] MEDS: PANTOPRAZOLE 40 MG TABLET PO SCH (09:23)
[2021-01-02] MEDS: DEXAMETHASONE SOD PHOSPHATE 10 MG/1 ML VIAL IVPUSH SCH (09:24)
[2021-01-02] MEDS: LOSARTAN POTASSIUM 50 MG TABLET PO SCH (09:24)
[2021-01-02] MEDS ORDERED: REMDESIVIR 200 MG in SODIUM CHLORIDE 210 ML IVPB ONE (17:00)
[2021-01-02] MEDS: ROSUVASTATIN CA 20 MG TABLET (FP) PO SCH (21:34)
[2021-01-03] MEDS: INSULIN SLIDING SCALE (NOVOLOG) 1 VIAL SQ SCH ×4 (06:49→21:08)
[2021-01-03 08:10] LABS: BASO % 0.3 % (0-2.0); EOS % 1.4 % (0-4.5); HEMATOCRIT 32.8 % (35.4-49); HEMOGLOBIN 11.2 GM/dL (11.7-16.9); LYMPH % 15.2 % (8-40); MCH 25.8 pg (25.7-33.7); MEAN PLT VOLUME 7.6 fl (7.5-11.1); MONO % 9.5 % (3.8-10.2); NEUT % 73.6 % (42.8-82.8); PLATELET COUNT 398 K/MM3 (134-434); RBC 4.32 M/mm3 (4.00-5.60); RDW 14.7 % (11.9-15.9); WHITE BLOOD COUNT 4.3 K/mm3 (4.0-10.0)
[2021-01-03 08:35] LABS: ALBUMIN 2.7 g/dl (3.4-5.0); BLOOD UREA NITROGEN 15.3 mg/dL (7-18); CALCIUM 8.1 mg/dL (8.5-10.1)
[2021-01-03 08:41] LABS: BILIRUBIN,TOTAL 0.4 mg/dL (0.2-1); CREATININE 0.8 mg/dL (0.55-1.3); TOT PROT 6.8 g/dl (6.4-8.2)
[2021-01-03] MEDS: ZINC SULFATE 220 MG CAPSULE (FP) PO SCH (09:58)
[2021-01-03] MEDS: ASPIRIN 81 MG CHEWABLE TABLETS PO SCH (09:58)
[2021-01-03] MEDS: RANOLAZINE E.R. 500 MG TABLET (FP) PO SCH ×2 (09:58→21:07)
[2021-01-03] MEDS: amLODIPine BESYLATE 10 MG TABLET (FP) PO SCH (09:58)
[2021-01-03] MEDS: ASCORBIC ACID 500 MG TABLET (FP) PO SCH ×2 (09:58→21:07)
[2021-01-03] MEDS: DEXAMETHASONE SOD PHOSPHATE 10 MG/1 ML VIAL IVPUSH SCH (09:58)
[2021-01-03] MEDS: CHOLECALCIFEROL (VIT D3) 1,000 UNIT (25 MCG) TABLET PO SCH (09:58)
[2021-01-03] MEDS: PANTOPRAZOLE 40 MG TABLET PO SCH (09:58)
[2021-01-03] MEDS: APIXABAN 5 MG TABLET PO SCH ×2 (09:59→21:07)
[2021-01-03] MEDS: LOSARTAN POTASSIUM 50 MG TABLET PO SCH (10:00)
[2021-01-03] MEDS: REMDESIVIR 100 MG in SODIUM CHLORIDE 230 ML IVPB SCH (17:11)
[2021-01-03] MEDS: ROSUVASTATIN CA 20 MG TABLET (FP) PO SCH (21:07)
[2021-01-04] MEDS: INSULIN SLIDING SCALE (NOVOLOG) 1 VIAL SQ SCH ×4 (06:21→21:49)
[2021-01-04 07:26] LABS: BASO % 0.4 % (0-2.0); HEMATOCRIT 34.3 % (35.4-49); HEMOGLOBIN 11.5 GM/dL (11.7-16.9); LYMPH % 11.2 % (8-40); MCH 25.6 pg (25.7-33.7); MCHC 33.7 g/dl (32.0-35.9); MEAN PLT VOLUME 7.5 fl (7.5-11.1); MONO % 9.9 % (3.8-10.2); NEUT % 78.5 % (42.8-82.8); PLATELET COUNT 433 K/MM3 (134-434); RBC 4.51 M/mm3 (4.00-5.60); RDW 15.1 % (11.9-15.9); WHITE BLOOD COUNT 5.6 K/mm3 (4.0-10.0)
[2021-01-04 07:42] LABS: POTASSIUM 4.1 mmol/L (3.5-5.1)
[2021-01-04 07:50] LABS: ALBUMIN 2.8 g/dl (3.4-5.0); BLOOD UREA NITROGEN 16.9 mg/dL (7-18); CALCIUM 8.5 mg/dL (8.5-10.1); MAGNESIUM 2.2 mg/dL (1.8-2.4)
[2021-01-04 07:54] LABS: CREATININE 0.9 mg/dL (0.55-1.3); TOT PROT 6.9 g/dl (6.4-8.2)
[2021-01-04] MEDS: LOSARTAN POTASSIUM 50 MG TABLET PO SCH (10:19)
[2021-01-04] MEDS: ASPIRIN 81 MG CHEWABLE TABLETS PO SCH (10:19)
[2021-01-04] MEDS: DEXAMETHASONE SOD PHOSPHATE 10 MG/1 ML VIAL IVPUSH SCH (10:20)
[2021-01-04] MEDS: ZINC SULFATE 220 MG CAPSULE (FP) PO SCH (10:21)
[2021-01-04] MEDS: APIXABAN 5 MG TABLET PO SCH ×2 (10:21→21:48)
[2021-01-04] MEDS: amLODIPine BESYLATE 10 MG TABLET (FP) PO SCH (10:21)
[2021-01-04] MEDS: PANTOPRAZOLE 40 MG TABLET PO SCH (10:22)
[2021-01-04] MEDS: RANOLAZINE E.R. 500 MG TABLET (FP) PO SCH ×2 (10:22→21:48)
[2021-01-04] MEDS: ASCORBIC ACID 500 MG TABLET (FP) PO SCH ×2 (10:23→21:48)
[2021-01-04] MEDS: CHOLECALCIFEROL (VIT D3) 1,000 UNIT (25 MCG) TABLET PO SCH (10:23)
[2021-01-04] MEDS: REMDESIVIR 100 MG in SODIUM CHLORIDE 230 ML IVPB SCH (16:10)
[2021-01-04] MEDS: ROSUVASTATIN CA 20 MG TABLET (FP) PO SCH (21:48)
[2021-01-05] MEDS: INSULIN SLIDING SCALE (NOVOLOG) 1 VIAL SQ SCH ×4 (06:20→22:20)
[2021-01-05 07:16] LABS: POTASSIUM 3.8 mmol/L (3.5-5.1)
[2021-01-05 07:19] LABS: CALCIUM 8.5 mg/dL (8.5-10.1)
[2021-01-05 07:21] LABS: ALBUMIN 2.9 g/dl (3.4-5.0)
[2021-01-05 07:22] LABS: BASO % 0.1 % (0-2.0); EOS % 0.1 % (0-4.5); HEMATOCRIT 33.7 % (35.4-49); HEMOGLOBIN 11.7 GM/dL (11.7-16.9); LYMPH % 14.6 % (8-40); MCH 26.2 pg (25.7-33.7); MCHC 34.9 g/dl (32.0-35.9); MEAN CELL VOLUME 75.2 fl (80-96); MEAN PLT VOLUME 7.5 fl (7.5-11.1); MONO % 9.8 % (3.8-10.2); NEUT % 75.4 % (42.8-82.8); PLATELET COUNT 463 K/MM3 (134-434); RBC 4.48 M/mm3 (4.00-5.60); RDW 14.8 % (11.9-15.9)
[2021-01-05 07:23] LABS: CREATININE 0.9 mg/dL (0.55-1.3)
[2021-01-05 07:24] LABS: BILIRUBIN,TOTAL 0.9 mg/dL (0.2-1)
[2021-01-05 07:35] LABS: BLOOD UREA NITROGEN 19.8 mg/dL (7-18)
[2021-01-05] MEDS: ASPIRIN 81 MG CHEWABLE TABLETS PO SCH (09:34)
[2021-01-05] MEDS: LOSARTAN POTASSIUM 50 MG TABLET PO SCH (09:34)
[2021-01-05] MEDS: DEXAMETHASONE SOD PHOSPHATE 10 MG/1 ML VIAL IVPUSH SCH (09:36)
[2021-01-05] MEDS: ZINC SULFATE 220 MG CAPSULE (FP) PO SCH (09:37)
[2021-01-05] MEDS: APIXABAN 5 MG TABLET PO SCH ×2 (09:37→22:09)
[2021-01-05] MEDS: amLODIPine BESYLATE 10 MG TABLET (FP) PO SCH (09:37)
[2021-01-05] MEDS: PANTOPRAZOLE 40 MG TABLET PO SCH (09:38)
[2021-01-05] MEDS: ASCORBIC ACID 500 MG TABLET (FP) PO SCH ×2 (09:39→22:09)
[2021-01-05] MEDS: RANOLAZINE E.R. 500 MG TABLET (FP) PO SCH ×2 (09:39→22:08)
[2021-01-05] MEDS: CHOLECALCIFEROL (VIT D3) 1,000 UNIT (25 MCG) TABLET PO SCH (09:39)
[2021-01-05] MEDS: REMDESIVIR 100 MG in SODIUM CHLORIDE 230 ML IVPB SCH (17:51)
[2021-01-05] MEDS: ROSUVASTATIN CA 20 MG TABLET (FP) PO SCH (22:09)
[2021-01-06 08:02] LABS: BASO % 0.1 % (0-2.0); HEMATOCRIT 34.5 % (35.4-49); HEMOGLOBIN 11.8 GM/dL (11.7-16.9); LYMPH % 15.8 % (8-40); MCH 25.9 pg (25.7-33.7); MCHC 34.3 g/dl (32.0-35.9); MEAN CELL VOLUME 75.7 fl (80-96); MEAN PLT VOLUME 7.6 fl (7.5-11.1); MONO % 9.8 % (3.8-10.2); NEUT % 74.3 % (42.8-82.8); PLATELET COUNT 423 K/MM3 (134-434); RBC 4.55 M/mm3 (4.00-5.60); RDW 15.6 % (11.9-15.9); WHITE BLOOD COUNT 5.7 K/mm3 (4.0-10.0)
[2021-01-06 08:15] LABS: POTASSIUM 3.7 mmol/L (3.5-5.1)
[2021-01-06 08:18] LABS: BLOOD UREA NITROGEN 20.2 mg/dL (7-18); CALCIUM 8.5 mg/dL (8.5-10.1); MAGNESIUM 2.3 mg/dL (1.8-2.4)
[2021-01-06 08:21] LABS: CREATININE 0.9 mg/dL (0.55-1.3)
[2021-01-06 08:23] LABS: BILIRUBIN,TOTAL 0.9 mg/dL (0.2-1); TOT PROT 6.8 g/dl (6.4-8.2)
[2021-01-06] MEDS: amLODIPine BESYLATE 10 MG TABLET (FP) PO SCH (09:33)
[2021-01-06] MEDS: CHOLECALCIFEROL (VIT D3) 1,000 UNIT (25 MCG) TABLET PO SCH (09:33)
[2021-01-06] MEDS: LOSARTAN POTASSIUM 50 MG TABLET PO SCH (09:33)
[2021-01-06] MEDS: ASPIRIN 81 MG CHEWABLE TABLETS PO SCH (09:33)
[2021-01-06] MEDS: PANTOPRAZOLE 40 MG TABLET PO SCH (09:33)
[2021-01-06] MEDS: APIXABAN 5 MG TABLET PO SCH ×2 (09:33→21:51)
[2021-01-06] MEDS: ASCORBIC ACID 500 MG TABLET (FP) PO SCH ×2 (09:33→21:51)
[2021-01-06] MEDS: ZINC SULFATE 220 MG CAPSULE (FP) PO SCH (09:33)
[2021-01-06] MEDS: RANOLAZINE E.R. 500 MG TABLET (FP) PO SCH ×2 (09:33→21:51)
[2021-01-06] MEDS: INSULIN SLIDING SCALE (NOVOLOG) 1 VIAL SQ SCH ×4 (09:34→21:50)
[2021-01-06] MEDS: DEXAMETHASONE SOD PHOSPHATE 10 MG/1 ML VIAL IVPUSH SCH (09:34)
[2021-01-06] MEDS ORDERED: POLYETHYLENE GLYCOL 3350 119 GM BTL PO SCH (10:00)
[2021-01-06] MEDS: REMDESIVIR 100 MG in SODIUM CHLORIDE 230 ML IVPB SCH (16:57)
[2021-01-06 19:03] VITALS: BP 137/78; PULSE 103; TEMP 98.3
[2021-01-06] MEDS: ROSUVASTATIN CA 20 MG TABLET (FP) PO SCH (21:50)
== END 2021-01-06 01:00 | disposition home or self-care (01) | DRG 177 ==
LOC: JER 08:34 → JERBED 10:46 → J4W 12:26
PROVIDERS: ADMIT Internal Medicine; ATTEND Nurse Practitioner Family
PROC: 8E0ZXY6 Isolation (ICD-10-PCS; 2021-01-01)
PROC: XW033E5 Introduction of Remdesivir Anti-infective into Peripheral Vein, Percutaneous Approach, New Technology Group 5 (ICD-10-PCS; 2021-01-02)
PROC: XW13325 Transfusion of Convalescent Plasma (Nonautologous) into Peripheral Vein, Percutaneous Approach, New Technology Group 5 (ICD-10-PCS; principal; 2021-01-03)
DX: U07.1 COVID-19 (principal); J12.82 Pneumonia due to coronavirus disease 2019; J96.01 Acute respiratory failure with hypoxia; I47.2 Ventricular tachycardia; I24.8 Other forms of acute ischemic heart disease; I25.10 Atherosclerotic heart disease of native coronary artery without angina pectoris; E11.9 Type 2 diabetes mellitus without complications; I10 Essential (primary) hypertension; N40.0 Benign prostatic hyperplasia without lower urinary tract symptoms; E11.51 Type 2 diabetes mellitus with diabetic peripheral angiopathy without gangrene; R07.89 Other chest pain; I25.2 Old myocardial infarction; R53.1 Weakness; R00.2 Palpitations; E78.5 Hyperlipidemia, unspecified; I65.21 Occlusion and stenosis of right carotid artery; Z95.5 Presence of coronary angioplasty implant and graft
CPT/HCPCS: 36415; 36430; 71045-TC-FY; 80048; 80053; 82550; 82553; 82728; 82962; 83615; 83735; 84100; 84443; 84484; 85025; 85027; 85379; 85610; 85651; 85730; 86140; 86769; 86850; 86900; 86901; 93005; 93010; 94010; 99285-25; C9399; C9803; J1100; P9017; U0003

== ENCOUNTER 2023-01-01 05:06 | Emergency (ER) | payer OTHER ==
[2023-01-01 05:13] VITALS: TEMP 98.8; BMI 28.8
[2023-01-01] MEDS ORDERED: SODIUM CHLORIDE 0.9% 500 ML INFUS.BAG IV ONE (05:51)
[2023-01-01 07:17] LABS: ALBUMIN 4.1 g/dl (3.4-5.0); BLOOD UREA NITROGEN 18.5 mg/dL (7-18); CALCIUM 9.8 mg/dL (8.5-10.1)
[2023-01-01 07:18] LABS: MAGNESIUM 1.9 mg/dL (1.8-2.4)
[2023-01-01 07:22] LABS: TOT PROT 7.7 g/dl (6.4-8.2)
[2023-01-01 08:39] LABS: HEMATOCRIT 45.9 % (35.4-49); HEMOGLOBIN 15.6 GM/dL (11.7-16.9); MCH 27.2 pg (25.7-33.7); MCHC 33.9 g/dl (32.0-35.9); MEAN CELL VOLUME 80.1 fl (80-96); MEAN PLT VOLUME 8.6 fl (7.5-11.1); PLATELET COUNT 221 10^3/uL (134-434); RBC 5.74 M/mm3 (4.00-5.60); RDW 15.7 % (11.9-15.9); WHITE BLOOD COUNT 8.9 K/mm3 (4.0-10.0)
[2023-01-01 10:01] LABS: ANISOCYTOSIS 0; HELMET CELLS 0; HOWELL-JOLLY BODIES 0; MACROCYTOSIS 0; OVALOCYTE 0; ROULEAU 0; SICKELED CELLS 0; TARGET CELLS 0; TEAR DROP CELLS 0; TOXIC GRANULATION 0
[2023-01-01 10:03] VITALS: BP 155/69; PULSE 89; RESP 16
== END 2023-01-01 11:46 | disposition admitted as inpatient to this hospital (09) ==
LOC: JER 05:06
DX: R11.10 Vomiting, unspecified (principal); R10.84 Generalized abdominal pain
CPT/HCPCS: 0241U-QW; 36415; 71045-TC-FY; 80053; 83690; 83735; 84484; 85025; 93005; 93010; 99285-25

== ENCOUNTER 2024-02-05 01:34 | Observation (INO) | payer OTHER ==
[2024-02-05 02:24] LABS: BASO % 0.5 % (0-2.0); EOS % 1.6 % (0-4.5); HEMATOCRIT 41.9 % (35.4-49); HEMOGLOBIN 14.3 GM/dL (11.7-16.9); LYMPH % 29.7 % (8-40); MEAN CELL VOLUME 79.2 fl (80-96); MEAN PLT VOLUME 8.8 fl (7.5-11.1); MONO % 8.1 % (3.8-10.2); NEUT % 60.1 % (42.8-82.8); PLATELET COUNT 185 10^3/uL (134-434); RBC 5.29 M/mm3 (4.00-5.60)
[2024-02-05 02:31] LABS: INR 0.94 (0.83-1.09); PROTHROMBIN TIME (PATIENT) 10.9 SEC (9.7-13.0)
[2024-02-05 02:33] LABS: ACTIVATED PTT 26.1 SECONDS (25.2-36.5)
[2024-02-05 02:52] LABS: POTASSIUM 3.7 mmol/L (3.5-5.1)
[2024-02-05 02:54] LABS: CALCIUM 9.1 mg/dL (8.5-10.1)
[2024-02-05 02:55] LABS: ALBUMIN 3.7 g/dl (3.4-5.0)
[2024-02-05 02:58] LABS: CREATININE 1.1 mg/dL (0.55-1.3)
[2024-02-05 02:59] LABS: TOT PROT 7.3 g/dl (6.4-8.2)
[2024-02-05 03:00] LABS: BILIRUBIN,TOTAL 0.6 mg/dL (0.2-1)
[2024-02-05 03:13] LABS: PH,URINE 5.5 (5.0-8.0); URINE APPEARANCE CLEAR; URINE BILIRUBIN NEGATIVE (NEGATIVE); URINE COLOR YELLOW; URINE GLUCOSE (UA) 3+ (NEGATIVE); URINE KETONE NEGATIVE (NEGATIVE); URINE LEUK ESTERASE NEGATIVE (NEGATIVE); URINE NITRITE NEGATIVE (NEGATIVE); URINE PROTEIN NEGATIVE (NEGATIVE); URINE UROBILINOGEN 0.2 mg/dL (0.2-1.0)
[2024-02-05] MEDS ORDERED: MECLIZINE HCL 25 MG TABLET (FP) ONE (03:16)
[2024-02-05] MEDS: MECLIZINE HCL 25 MG TABLET (FP) PO ONE (03:20)
[2024-02-05] MEDS ORDERED: ALPRAZolam 0.25 MG TABLET PO PRN (05:54)
[2024-02-05 07:24] LABS: HEMATOCRIT 42.9 % (35.4-49); HEMOGLOBIN 14.3 GM/dL (11.7-16.9); MCH 26.7 pg (25.7-33.7); MCHC 33.4 g/dl (32.0-35.9); MEAN CELL VOLUME 79.9 fl (80-96); MEAN PLT VOLUME 8.8 fl (7.5-11.1); PLATELET COUNT 202 10^3/uL (134-434); RBC 5.36 M/mm3 (4.00-5.60); RDW 15.2 % (11.9-15.9); WHITE BLOOD COUNT 6.9 K/mm3 (4.0-10.0)
[2024-02-05 07:52] LABS: POTASSIUM 3.7 mmol/L (3.5-5.1)
[2024-02-05 07:56] LABS: ALBUMIN 3.9 g/dl (3.4-5.0); CALCIUM 9.1 mg/dL (8.5-10.1)
[2024-02-05 07:57] LABS: BLOOD UREA NITROGEN 17.6 mg/dL (7-18); MAGNESIUM 2.1 mg/dL (1.8-2.4)
[2024-02-05 07:59] LABS: CREATININE 0.9 mg/dL (0.55-1.3); PHOSPHOROUS 3.7 mg/dL (2.5-4.9)
[2024-02-05 08:01] LABS: BILIRUBIN,TOTAL 0.6 mg/dL (0.2-1); TOT PROT 7.2 g/dl (6.4-8.2)
[2024-02-05] MEDS: INSULIN ASPART SLIDING SCALE (NOVOLOG) 1 VIAL SQ SCH (08:27)
[2024-02-05] MEDS: ASPIRIN 81 MG CHEWABLE TABLETS PO SCH (11:59)
[2024-02-05] MEDS: GABAPENTIN 300 MG CAPSULE PO SCH (12:02)
[2024-02-05] MEDS: HYDROCHLOROTHIAZIDE 12.5 MG CAPSULE (FP) PO SCH (12:02)
[2024-02-05] MEDS: LOSARTAN POTASSIUM 50 MG TABLET PO SCH (12:02)
[2024-02-05] MEDS: ENOXAPARIN NA (PORCINE) 40 MG/0.4 ML DISP.SYRIN SQ SCH (12:02)
[2024-02-05] MEDS: RANOLAZINE E.R. 500 MG TABLET (FP) PO SCH (12:03)
[2024-02-05] MEDS: amLODIPine BESYLATE 10 MG TABLET (FP) PO SCH (12:03)
[2024-02-05] MEDS ORDERED: INSULIN (NOVOLOG) ASPART 100 UNITS/ML 10ML VIAL ONE (12:26)
[2024-02-05 18:47] VITALS: RESP 18
[2024-02-05] MEDS: ROSUVASTATIN CA 20 MG TABLET PO SCH (21:31)
[2024-02-06 01:26] VITALS: BMI 29.9
[2024-02-06 07:05] LABS: BASO % 0.3 % (0-2.0); EOS % 1.5 % (0-4.5); HEMATOCRIT 42.2 % (35.4-49); HEMOGLOBIN 14.1 GM/dL (11.7-16.9); LYMPH % 31.8 % (8-40); MCH 26.6 pg (25.7-33.7); MCHC 33.3 g/dl (32.0-35.9); MEAN CELL VOLUME 79.8 fl (80-96); MEAN PLT VOLUME 8.9 fl (7.5-11.1); MONO % 9.2 % (3.8-10.2); NEUT % 57.2 % (42.8-82.8); PLATELET COUNT 191 10^3/uL (134-434); RBC 5.29 M/mm3 (4.00-5.60); RDW 15.1 % (11.9-15.9); WHITE BLOOD COUNT 4.5 K/mm3 (4.0-10.0)
[2024-02-06 07:40] LABS: POTASSIUM 3.8 mmol/L (3.5-5.1)
[2024-02-06 07:43] LABS: CALCIUM 8.9 mg/dL (8.5-10.1)
[2024-02-06 07:44] LABS: ALBUMIN 3.5 g/dl (3.4-5.0)
[2024-02-06 07:48] LABS: TOT PROT 6.8 g/dl (6.4-8.2)
[2024-02-06 07:51] LABS: BILIRUBIN,TOTAL 0.6 mg/dL (0.2-1)
[2024-02-06 09:59] VITALS: BP 148/81; PULSE 65; TEMP 98.4
== END 2024-02-06 13:25 | disposition home or self-care (01) ==
LOC: JER 01:34 → JERBED 03:12 → J4W 19:34
PROVIDERS: ADMIT Internal Medicine
PROC: 3E023GC Introduction of Other Therapeutic Substance into Muscle, Percutaneous Approach (ICD-10-PCS; principal; 2024-02-05)
PROC: 3E013VG Introduction of Insulin into Subcutaneous Tissue, Percutaneous Approach (ICD-10-PCS; 2024-02-05)
DX: G45.9 Transient cerebral ischemic attack, unspecified (principal); I25.10 Atherosclerotic heart disease of native coronary artery without angina pectoris; Z95.5 Presence of coronary angioplasty implant and graft; I10 Essential (primary) hypertension; N40.0 Benign prostatic hyperplasia without lower urinary tract symptoms; I73.9 Peripheral vascular disease, unspecified; Z88.8 Allergy status to other drugs, medicaments and biological substances
CPT/HCPCS: 0241U-QW; 36415; 70450-TC; 70496-TC; 70498-TC; 70551-TC; 71045-TC-FY; 80053; 80061; 81003; 82550; 82553; 82962; 83036; 83735; 84100; 84484; 85025; 85027; 85610; 85730; 86850; 86900; 86901; 93005; 93010; 96372; 99285-25; G0378